=== PATIENT | female | born 1960 | race Caucasian/White ===

== ENCOUNTER 2023-04-17 07:24 | Observation (INO) | payer OTHER, SELFPAY ==
--- NOTE | 2023-04-02 08:02 | EKG12_ITS ---
Test Reason : PRE-OP Blood Pressure : / mmHG Vent. Rate : 076 BPM Atrial Rate : 076 BPM P-R Int : 140 ms QRS Dur : 074 ms QT Int : 340 ms P-R-T Axes : 028 -21 030 degrees QTc Int : 382 ms Normal sinus rhythm Low voltage QRS Borderline ECG Confirmed by HERSON CABEZAS, JOHANA ([id number]), editor index MIGUELANGEL BONILLA ([id number]) on 04/03/2023 10:45:21 AM Referred By: Gurjit Dominguez Confirmed By:JOHANA BAINS MD
--- NOTE | 2023-04-02 08:02 | RAD_ITS ---
STUDY: X-RAY CHEST REASON FOR EXAM: Female, 63 years old. PREOP TECHNIQUE: PA and lateral views of the chest. COMPARISON: None. FINDINGS: Mild degree of vascular congestion. There is no demonstrated pleural abnormality. Normal size heart. Normal mediastinum and eugenio. Normal visualized pulmonary arteries. There is atherosclerotic calcification of the aortic arch with tortuosity. There are diffuse degenerative changes of the visualized thoracic spine. Normal visualized ribs, clavicles, and shoulders. There is no demonstrated abnormality of the visualized soft tissue structures of the upper abdomen. RAD/Chest PA and Lateral IMPRESSION: Mild degree of vascular congestion. Electronically Signed: Donald Guerra MD at 13:12 [facility] ,
[2023-04-02 09:07] LABS: Absolute Lymphocyte Count 2.31 X10^3/uL (0.83-4.51); Absolute Neutrophil Count 1.8 X10^3/uL (2.0-7.7); Basophil# 0.03 X10^3/uL; Basophil% 0.6 % (0-1); Eosinophil# 0.19 X10^3/uL; Eosinophils% 3.9 % (0-5); Hematocrit 41.6 % (37-47); Hemoglobin 13.7 g/dL (12.0-15.0); Lymphocyte # 2.31 X10^3/ul (0.83-4.51); Lymphocyte % 47.8 % (19-41); Mean Corp Hgb Conc 32.9 g/dL (32-36); Mean Corpuscular Hgb 30.6 pg (27.0-32.0); Mean Corpuscular Volume 92.9 fL (81-99); Mean Platelet Vol. 10.2 fl (6.2-12.0); Monocyte# 0.52 X10^3/uL; Monocyte% 10.8 % (0-10); NRBC Flagged by Analyzer 0 % (0-5); Neutrophil # 1.76 X10^3/uL (2.7-7.7); Neutrophil % 36.5 % (47-70); Platelet Count 243 K/mm3 (150-450); RBC Distribution Width SD 44.3 fl (35.1-43.9); Red Blood Count 4.48 M/mm3 (4.2-5.4); White Blood Count 4.8 K/mm3 (4.4-11.0)
[2023-04-02 09:18] LABS: Partial Thromboplast Time 25.4 Seconds (24.1-36.2)
[2023-04-02 09:29] LABS: Anion Gap 3 (5-15); BUN 22 mg/dL (7-18); BUN/Creat Ratio 28.5 RATIO (10-20); Calcium,Total 9.4 mg/dL (8.5-10.1); Chloride 108 mmol/L (98-107); Creatinine, Serum 0.77 mg/dL (0.55-1.02); EST Glomerular Filtration Rate 80 mL/min (>60); Est Glom Filt Rate - Afr Amer 97 mL/min (>60); Glucose 101 mg/dL (74-106); Potassium 4.3 mmol/L (3.5-5.1); Sodium Level 138 mmol/L (136-145)
[2023-04-17] VITALS (13 sets, daily range): BP systolic 125–167; BP diastolic 52–84; PULSE 91–104; RESP 14–18; TEMP 36.1–36.6; O2SAT 92–99; BMI 40.0
--- OUTSIDE RECORDS SUMMARY | 2023-04-17 05:48 | XMS RPT_ITS | CCD ---
Author Name Unknown Address [address] [place] [address] Organization [facility] Care Team Providers Care Energy Technician Name Role Phone JAYLAN CORONA Admitting Unavailable CHURCH, YOLANDA PAC Consulting Unavailable CORONA, JAYLAN Primary Care Unavailable CORONA, JAYLAN Attending Unavailable PROVIDER, UNKNOWN Consulting Unavailable CHURCH, YOLANDA PAC Consulting Unavailable CORONA, JAYLAN Admitting Unavailable CORONA, JAYLAN Primary Care Unavailable CORONA, JAYLAN Attending Unavailable PROVIDER, UNKNOWN Consulting Unavailable CHURCH, YOLANDA PAC Consulting Unavailable CHURCH, YOLANDA PAC Attending Unavailable CHURCH, YOLANDA PAC Admitting Unavailable CHURCH, YOLANDA PAC Primary Care Unavailable PROVIDER, UNKNOWN Consulting Unavailable CHURCH, YOLANDA PAC Consulting Unavailable ROBINA PALMER DO Admitting Unavailable PALMERROBINA DO Primary Care Unavailable PALMERROBINA WOLF DO Attending Unavailable PROVIDER, UNKNOWN Consulting Unavailable CORONA, JAYLAN Admitting Unavailable CHURCH, YOLANDA PAC Consulting Unavailable CORONA, JAYLAN Primary Care Unavailable CORONA, JAYLAN Attending Unavailable PROVIDER, UNKNOWN Consulting Unavailable CJ, JAYLAN Admitting Unavailable CHURCH, YOLANDA PAC Consulting Unavailable CJ, JAYLAN Primary Care Unavailable CJ, JAYLAN Attending Unavailable PROVIDER, UNKNOWN Consulting Unavailable Problems Active Problems Problem Classification Problem Date Documented Da te Episodic/Chronic Osteoarthritis (1 source) Unilateral primary osteoarthritis, right hip; Translations: [Unilateral primary osteoarthritis, right hip] Onset: 09-12-2022 Chronic Past or Other Problems Problem Classification Problem Date Documented Da te Episodic/Chronic Other non-traumatic joint disorders (3 sources) Pain in right hip; Translations: [Pain in right hip] Onset: 09-12-2022 Episodic Results Test Name Value Interpretation Reference Range Facil ity Encounters Encounter Date Encounter Type Care Provider Facility Start: 12-20-2022 End: 12-20-2022 ambulatory YOLANDA PAC [facility] Start: 12-17-2022 End: 12-17-2022 ambulatory YOLANDA PAC [facility] Start: 10-11-2022 End: 10-11-2022 ambulatory JAYLAN CORONA [facility] Start: 09-12-2022 End: 09-12-2022 ambulatory JAYLAN CORONA [facility] Start: 08-14-2022 End: 08-14-2022 ambulatory JAYLAN CORONA [facility] Start: 06-03-2022 End: 06-03-2022 ambulatory YOLANDA CHURCH [facility] Payers Date Payer Category Payer Unknown [id number] [id number] 1960 Unknown [id number] [id number] [id number] 1960 Unknown [id number] 2.16.8 [id number] 1960 Unknown [id number] 2.16.8 [id number] 1960 Unknown [id number] 2.16.84 [id number] 1960 Unknown [id number] 2.16.84 [id number] Unknown [id number] Unknown [id number] Clinical Note 12-20-2022 Note Date & Type Note Facility 12-20-2022 Note [facility] CONSULTATION REPORT NAME ACCOUNT SEX AGE ADMIT DISCHARGE PT MED. RECORD# NUMBER DATE DATE TYPE [place], [id number] F 62 12/20/2022 12/20/2022 2 LIZY Rodriguez [id number] ROOM: DATE OF : 1960 DICTATING PHYSICIAN: Jaylan Corona HISTORY OF PRESENT ILLNESS: The patient was seen today on December 20, 2022 at the [facility] in [place], [place]. She had a right hip diagnostic injection with 100% relief. She states she is really doing good . She had her left hip replaced by Dr. Arsen Vargas. We explained to her that if this pain were to return quickly, which it does not appear that it is, then she would need a right hip replacement, but overall she is doing really quite well. She also had some bursitis in the past, and this was relieved with injection therapy as well. The patient takes Celebrex usually daily, and there are no ill effects, and her recent laboratory data through her [facility] practice doctor was told to me to be within normal limits. The patient does suffer from degenerative lumbar disk disease and rare radicular symptomatology, though she states she is having increasing shooting calf pain at times. This only occurs with excessive activity. REVIEW OF SYSTEMS: The remainder of review of systems, intake form, pain questionnaire, nursing assessment, and OARRS report were reviewed. PHYSICAL EXAMINATION: GENERAL APPEARANCE: Reveals a pleasant 62-year-old female who is alert x3. Her cranial nerves are intact, and she ambulates in the room in a mildly flexed position. VITAL SIGNS: She is 212 pounds and 66 inches. Pain level is a 5 out of 10. Temperature is 97.5, pulse 94, respirations 20, and blood pressure 150/80. Cervical range of motion is preserved. Her thyroid is not enlarged. HEART: Heart is regular. Peripheral pulses are maintained. LUNGS: Lungs are clear in all lung liz. ABDOMEN: Abdomen is not acute. EXTREMITIES: The patient exhibits some mild pain with lumbar extension, but only with extremes. Lumbar flexion is full. Straight leg raising is negative. Full hip range of motion is noted. The patient also has full knee range of motion as well. ASSESSMENT: 1. Degenerative lumbar disk disease. 2. Lumbosacral radiculitis/intermittent and rare. 3. Osteoarthritis/pain right hip/resolved with injection therapy. 4. Right hip bursitis/resolved with injection therapy. Page 1 of 2 LIZY STARR Circular Knitter Helper Report LIZY STARR : 1960 PLAN: The patient will continue with Celebrex as it has no ill effects and it seems to be quite effective. We will utilize injections intermittently. She may need an epidural injection if the radicular pain continues to progress. The patient agrees to the plan, and will followup in 6 months and sooner if needed. Dictated By: Jaylan Corona DO 12/20/2022 11:16 JOB #: [id number] Transcribed By: am 12/20/2022 12:00 Electronically signed by: E-SIGN: JAYLAN CORONA 12/20/22 13:28 Page 2 of 2 LIZY STARR Circular Knitter Helper Report [facility] Clinical Note 10-17-2022 Note Date & Type Note Facility 10-17-2022 Note [facility] CONSULTATION REPORT NAME ACCOUNT SEX AGE ADMIT DISCHARGE PT MED. RECORD# NUMBER DATE DATE TYPE [place], [id number] F 62 10/11/2022 10/11/2022 2 LIZY M [id number] ROOM: DATE OF : 1960 DICTATING PHYSICIAN: Jaylan Corona PROGRESS NOTE HISTORY OF PRESENT ILLNESS: The patient is seen today on October 11, 2022. The patient is status post right hip injection for diagnostic and therapeutic purposes. The patient states that this shot was on Friday, and by Friday it was amazing and there is no pain. She still has really not much pain in the right hip, and now complains of other pains including right buttock area, some mild radicular components to her pain pattern, and some lateral hip pain. The patient is quite active at home. She mows her lawn, and is trying to lose weight as her weight is over 200 pounds. She is 5 foot 2. Overall though, she is marked improved. The patient is due to see Dr. Arsen Vargas next month, and hopefully the pain relief will still continue. If note, she will need a right hip replacement. We discussed this in no uncertain terms. The patient is currently on no pain medications except Tylenol which does nothing for her overall pain pattern. REVIEW OF SYSTEMS: The remainder of review of systems, intake form, pain questionnaire, nursing assessment, and OARRS report were reviewed. PHYSICAL EXAMINATION: GENERAL APPEARANCE: Reveals a pleasant 62-year-old female who is alert x3. VITAL SIGNS: She is 5 foot 2 and 206 pounds. Cervical range of motion is diminished, but not painful. Her thyroid is not enlarged. Her gait is upright and steady. HEART: Heart is regular. Peripheral pulses are maintained. LUNGS: Lungs are clear in all lung liz. ABDOMEN: Soft and rotund. EXTREMITIES: Examination of the hip joints reveal full range of motion of the right hip. She has left hip range of motion, but the left hip is replaced. Range of motion is full. Straight leg raising is negative. She has full lumbar range of motion with pain only at extremes of extension and flexion. She does have a positive Celestino's test on the right, but not the left signifying some SI pain and some lateral right hip pain is noted, i.e. bursitis, but again it is mild. ASSESSMENT: 1. Degenerative lumbar disk disease/stable. 2. Lumbar radiculitis/rare. Page 1 of 2 LIZY STARR Circular Knitter Helper Report LIZY STARR : 1960 3. Status post total left hip replacement successful. 4. Osteoarthritis/pain right hip/markedly improved with hip injection. 5. Right sacroiliitis. 6. Morbid obesity. 7. Bursitis right hip. PLAN: The patient's right SI pain and bursitis are fairly mild. It may be amendable to simple Celebrex treatment. We will try Celebrex 200 mg every morning. We discussed risks and benefits. She will try this, and she will try to lose weight over the next few months. She will talk to Dr. Arsen Vargas, and if her pain is still not present in the right groin and hip region, then she probably will not need a hip replacement for a while, but eventually she will. The patient agrees to the plan, and will followup in 3 months and trial the Celebrex. Dictated By: Jaylan Corona DO 10/11/2022 09:22 JOB #: [id number] Transcribed By: am 10/11/2022 10:03 Electronically signed by: E-SIGN: JAYLAN CORONA 10/17/22 07:29 Page 2 of 2 LIZY STARR Circular Knitter Helper Report [facility] Clinical Note 08-15-2022 Note Date & Type Note Facility 08-15-2022 Note [facility] CONSULTATION REPORT NAME ACCOUNT SEX AGE ADMIT DISCHARGE PT MED. RECORD# NUMBER DATE DATE TYPE [place] [id number] F 62 08/14/2022 08/14/2022 2 LIZY Rodriguez [id number] ROOM: DATE OF : 1960 DICTATING PHYSICIAN: Jaylan Corona August 14, 2022 Arsen Vargas MD [address] [address] RE: Lizy Starr : [address] Arsen Vargas: It was a pleasure to evaluate Mrs. Strar at our [facility] in [place], [place] on August 14, 2022. As you are aware, the patient has several pain complaints, most prominent being low back and radicular pain posteriorly, but also complains of right groin pain. Certainly, her x-rays reveal osteoarthritis of the hip. She had a left hip replacement, which was successful. The patient is unsure if she wishes to move forward with any surgeries again, but we explained we need to have a definitive diagnosis of where the pain is coming from. It is likely they are from 2 locations. The patient utilizes Tylenol with some questionable efficacy. The pain is certainly interfering with activities of daily living. The patient's past medical history is positive for obesity and anxiety and probably hypertension. At our visit today, the blood pressure was high, and at yours it was high as well. The patient is a nonsmoker, nondrinker, and is . She has 2 boys with grandchildren. The remainder of review of systems, intake form, pain questionnaire, and nursing assessment were reviewed. PHYSICAL EXAMINATION: GENERAL APPEARANCE: Reveals a 62-year-old female Page 1 of 3 LIZY STARR Circular Knitter Helper Report LIZY STARR : 1960 who is alert x3 and pleasant. She ambulates in a flexed position slowly into the room. VITAL SIGNS: She is 5 foot 5 and 212 pounds. Blood pressure is 170/100, pulse 80, respirations 16, and saturation 96% on room air. Cervical range of motion is preserved. Her thyroid is not enlarged. HEART: Heart is regular. Peripheral pulses are maintained. LUNGS: Her lungs are clear in all lung liz. ABDOMEN: Abdomen is soft and rotund. EXTREMITIES: Examination of the spine reveals full range of motion of the cervical spine, and no myofascial pain of the cervical, thoracic, or lumbar area. The patient exhibits significant discomfort with any lumbar extension or side bending while lumbar flexion is full. Straight leg raising is negative. The patient exhibits right groin pain with right hip range of motion and no pain on the left with left hip range of motion. ASSESSMENT: 1. Degenerative lumbar disk disease. 2. Lumbar radiculitis right-sided. 3. Morbid obesity. 4. Osteoarthritis right hip. PLAN: We will do a diagnostic right hip injection to see if that pain disappears. If it does, we will see if any steroid helps this pain for any length of time. If it does not, she will need a hip replacement on the right as well. In terms of the radicular pain, we will see how she does after the diagnostic injection. She may need further workup with MRI and/or an epidural injection for diagnostic and therapeutic purposes. The patient will start with a diagnostic right hip injection under fluoroscopy. The patient agrees with the plan. Thank you for this consultation. Sincerely, Jaylan Corona DO Dictated By: Jaylan Corona DO 08/14/2022 10:14 JOB #: [id number] Transcribed By: am 08/14/2022 11:12 Electronically signed by: Page 2 of 3 LIZY STARR Circular Knitter Helper Report LIZY STARR : 1960 E-SIGN: JAYLAN CORONA 08/15/22 07:10 Page 3 of 3 LIZY STARR Circular Knitter Helper Report [facility] Summary Purpose Family History No Family History Records FoundNo Family History Records Found Advance Directives No Advanced Directives Records FoundNo Advanced Directives Records Found Additional Source Comments INFORMATION SOURCE (unrecogn ized section and content) DATE CREATED AUTHOR AUTHOR'S ORGANIZ ATION 03/12/2023 [facility] FOR RECORDS PERTAINING TO PATIENTS WHO ARE OR HAVE BEEN ENROLLED IN A CHEMICAL DEPENDENCY/SUBSTANCEABUSE PROGRAM, SOME INFORMATION MAY BE OMITTED. This clinical summary was aggregated from multiple sources. Caution should be exercised in using it in the provision of clinical care. This summary normalizes information from multiple sources, and as a consequence, information in this document may materially change the coding, format and clinical context of patient data. In addition, data may be omitted in some cases. CLINICAL DECISIONS SHOULD BE BASED ON THE PRIMARY CLINICAL RECORDS. [employer]. provides no warranty or guarantee of the accuracy or completeness of information in this document.
[2023-04-17] MEDS: Lactated Ringers 1,000 ML 15 ML IV ×3 (06:47→12:00)
--- NOTE | 2023-04-17 07:14 | OP.PCM_ITS ---
Problems Associated Problem List Diagnoses (1) Lumbar stenosis: Report of Operation Date of Procedure: 04/17/23 Description of Surgical Findings:: Preop diagnosis: 1. Lumbar stenosis, L4-5, L5-S1 with spondylosis 2. Lumbar degenerative disc disease L4-5, L5-S1 Postop diagnosis: 1. Lumbar stenosis, L4-5, L5-S1 with spondylosis 2. Lumbar degenerative disc disease L4-5, L5-S1 Procedures performed: 1. L4-5 posterior lumbar interbody fusion 2. L5-S1 posterior lumbar interbody fusion 3. Insertion of intervertebral biomechanical device x2 4. Structural allograft for spinal fusion 5. L4 bilateral laminectomies, foraminotomies, facetectomies, decompression of bilateral nerve roots 6. L5 bilateral laminectomies, foraminotomies, facetectomies, decompression of bilateral nerve roots 7. L4-5 posterolateral fusion 8. L5-S1 posterior lateral fusion 9. Pedicle screw fixation 10. Local autograft for spinal fusion. 11. Neuro monitoring bilateral upper and bilateral lower extremities Statement of medical necessity: The patient is a 63-year-old female with intractable back and leg pain. Image studies confirm the above diagnoses. They have failed conservative treatments and has opted for operative intervention understanding the risk to include but not limited to infection, bleeding, damage to nerves arteries and veins, possibility of spinal fluid leak, nonunion, hardware failure, continued pain, need for further surgery, deep vein thrombosis, pulmonary embolism, heart attack, risk of stroke or . Description of the procedure: The patient was identified in the preoperative holding area. There they received preoperative IV antibiotics and was then transferred to the operative suite. Once in the operative suite after general endotracheal anesthesia was established, the patient was positioned prone on the Kristian operating table. All bony prominences were padded accordingly. The lumbar spine was prepped and draped in a standard fashion. Bear hugger's were not turned on until the drapes were placed and sealed with Ioban. A midline incision was made and taken down to the fascia. The fascia was divided and subperiosteal dissection was taken down to the level of the transverse processes and sacral ala of L4, L5, and S1 bilaterally. Deep retractors were placed. A bone scalpel was used to make cuts in the lamina and then a series of rongeurs and Kerrisons were used removing the spinous process and lamina of L4 and L5. Then facetectomies of greater than 50% were performed at L4-5 and L5-S1 bilaterally as well as foraminotomies decompressing the bilateral nerve roots. Given the severity of the stenosis I needed to perform wide bilateral laminectomies and near complete facetectomies in order to decompress the neural elements. Disc created instability necessitating the fusion. I then proceeded with interbody fusion. The nerve roots and dura were identified and retracted medially. A knife was utilized to perform an annulotomy at L4-5 on the right. Endplate elevators, curettes, and pituitaries were utilized to remove disc material. Endplates were prepared with a rasp. An appropriate sized intervertebral peek cage device measuring 10 mm was packed with structural allograft and impacted into position completing the posterior lumbar interbody fusion at the L4-5 level. The same steps were repeated at the L5-S1 level. An intervertebral peek cage device measuring 7 mm was packed with morselized cance llous allograft and impacted into position completing the posterior lumbar interbody fusion at the L5-S1 level. I then proceeded with pedicle screw fixation. Starting points were found at the junction of the superior articular process and transverse processes and sacral ala of L4, L5, and S1 bilaterally. A power bur was used for the starting points. Pedicle probes were placed bilaterally and then 6.5 x 50 mm screws were placed bilaterally at L4 and L5 and 6.5 x 45 mm screws were placed bilaterally at S1. The screws were tested with intraoperative neurophysiologic monitoring and tested within normal limits. Connector rods were applied and secured with set screws. I then proceeded with the posterolateral fusion. This was accomplished by decorticating the transverse processes and sacral ala bilaterally at L4, L5, and S1. This decorticated bone was then bridged with local autograft from the decompression as well as morselized cancellous allograft completing the posterolateral fusion of the L4-5 and L5-S1 levels. The incision was thoroughly irrigated. Tisseel was placed over the dura as a hemostatic agent. The fascia was closed with #1 Vicryl, subcutaneous with 2-0 Vicryl and skin with 2-0 nylon. A sterile dressing was applied with 4 x 4's ABD and tape. Sponge instrument and needle counts were correct at the end of the case. Neurophysiologic monitoring was maintained at baseline throughout the duration of the case. The patient was extubated and taken to the PACU without incident Surgeon: Dominguez,Gurjit Type of Anesthesia: General Estimated Blood Loss (mL): 700 cc Fluids Replaced: 2600 cc Grafts/Implants Used: Unified spine Complications None Admit VTE Documentation VTE Present on Admission: No
--- NOTE | 2023-04-17 07:16 | PCM.PN.ORT ---
Subjective Subjective Seen and examined postop. Resting comfortably. Pain controlled. No complaints Objective Data Objective Data Vital Signs: Vital Signs Temp Pulse Resp BP Pulse Ox O2 Del Method 97.0 F L 91 16 167/75 H 95 Room Air 04/17/23 06:31 04/17/23 06:31 04/17/23 06:31 04/17/23 06:31 04/17/23 06:31 04/17/23 06:31 Oxygen Delivery Method Room Air Weight: 212 lb 1.355 oz Body Mass Index (BMI) 40.0 Lab / Micro Data 04/02/23 08:06 04/02/23 08:06 Physical Exam Const alert, oriented x3 and no apparent distress General Appearance: cooperative, comfortable and well kempt HEENT normocephalic and head/scalp atraumatic Eyes EOMs intact bilaterally and conjunctivae normal Neck full ROM General: normal visual inspection Chest inspection of chest normal and palpation of chest normal Resp normal respiratory effort and normal air movement Cardio regular rate, regular rhythm and peripheral pulses 2+ throughout GI soft to palpation, non-tender and non-distended Back/Spine Back/Spine Narrative: Dressing clean dry and intact Cervical Spine: cervical ROM normal Thoracic Spine / Upper Back: normal to inspection Lumbar Spine / Lower Back: normal to inspection Extremity normal to inspection, full ROM, normal capillary refill, no clubbing, cyanosis or edema and no calf tenderness Skin no rashes or lesions noted General Skin Exam: no breakdown Neuro oriented x3, CN's II-XII intact bilaterally, moves all extremities, no focal motor deficits, no sensory deficits noted and deep tendon reflexes 2+ bilaterally Motor Exam: strength 5/5 throughout and muscle tone normal throughout Assessment & Plan Assessment/Plan (1) Lumbar stenosis: PLAN: Plan Okay to admit See orders Discharge planning, likely home tomorrow
--- NOTE | 2023-04-17 07:18 | DS.PCM_ITS ---
Providers Date of Admission: 04/17/23 Primary Care Physician: DALLAS Mcconnell Reason For Visit: LUMBAR 4 - LUMBAR 5, LUMBAR 5 - SAC Diagnosis Discharge Diagnosis (1) Lumbar stenosis: Status: Acute Code(s): M48.061 - Spinal stenosis, lumbar region without neurogenic claudication Plan Okay to admit See orders Discharge planning, likely home tomorrow Medications at Discharge Home Medications lisinopril 10 mg tablet 10 mg PO DAILY 03/27/23 hydrocodone-acetaminophen 5-325mg 5mg-325mg 1 tab PO Q4H PRN PRN Pain 7 days #90 tabs 04/17/23 Hospital Course Operations - (L4-5, L5-S1 posterior lumbar interbody fusion, decompression, posterior spinal fusion with instrumentation, use of allograft) Summary of Care Provided Minutes Spent on Discharge: 15 Hospital Course: The patient is a 63-year-old female who underwent L4-S1 fusion on 04/17/2023. She was subsequently admitted. The hospitalist was consulted for medical manag ement. She progressed well. Her pain was controlled and she was mobilizing well. No significant medical issues were reported. She was subsequently discharged home on 04/18/2023 to follow-up with Dr. Dominguez in 3 weeks Physical Exam Const alert, oriented x3 and no apparent distress General Appearance: cooperative, comfortable and well kempt Neck full ROM General: normal visual inspection Chest inspection of chest normal and palpation of chest normal Resp normal respiratory effort and normal air movement Effort and Inspection: able to speak in complete sentences Cardio regular rate and peripheral pulses 2+ throughout GI soft to palpation, non-tender and non-distended Back/Spine Back/Spine Narrative: Dressing clean dry and intact. Incision well-approximated with interrupted sutures in place. No tenderness erythema drainage or fluctuance Cervical Spine: cervical ROM normal Thoracic Spine / Upper Back: normal to inspection Lumbar Spine / Lower Back: normal to inspection Extremity normal to inspection, full ROM, normal capillary refill, no clubbing, cyanosis or edema and no calf tenderness Skin no rashes or lesions noted General Skin Exam: no breakdown Neuro oriented x3, CN's II-XII intact bilaterally, moves all extremities, no focal motor deficits, no sensory deficits noted and deep tendon reflexes 2+ bilaterally Motor Exam: strength 5/5 throughout and muscle tone normal throughout Weight / BMI Weight Weight: 212 lb 1.355 oz Body Mass Index (BMI) 40.0 ABG / Lab / Microbiology Data 04/02/23 08:06 04/02/23 08:06 D/C Instructions Discharge Diet: No restrictions Additional Activity Instructions: No repetitive bending twisting or lifting greater than 5 pounds. Wear back brace at all times. Okay to remove brace to sleep Call your doctor if your incision/area has: Continuous Slow Oozing, Sudden Increased Bleeding, Increased Pain/ Swelling, Increased Redness, Foul Smelling Discharge and Swelling at the incision site Call your doctor if you observe: Fever of 101 or Higher, Coldness, Increased Pain, Numbness or Tingling, Change in Color, Inability to urinate, Inability to have a bowel movement, Using more than 1 pad per hour, Shortness of breath, Dizziness, Fainting spells, Swelling in the ankles, Chest pain, Prolonged hiccupping, Increased palpitations (irregular heartbeat), Calf discomfort and Uncontrolled pain Cleanse incision/area with: Do not get Incision Wet and Keep Dressing Clean & Dry Additional Dressing/Incision Instructions: Change dressing daily with iodine gauze and tape. Use waterproof dressing to shower Additional Instructions: 1. During your procedure, you received sedation through your IV. Please follow these instructions for the next 24 hours: Do not drive a motor vehicle, do not drink any alcoholic beverages, and do not sign any legal documents or make personal or business decisions. A responsible adult should stay with you at least 6 hours after the procedure. 2. Keep your surgical site/incision clean and the dressing dry and intact. You may use an ice pack at the surgical site to reduce any swelling or discomfort. 3. Monitor the incision site for any signs or symptoms of infection. Watch for redness, excessive swelling or drainage, or continued pain at the incision site after 3 days. Contact your physician immediately for a fever, chills or a temperature of 101.5? F or greater. 4. Take your medication exactly as prescribed by your physician. Do not attempt to wean yourself off any of your medications even though your pain is improving. This process needs to be carefully monitored by your doctor. Take any antibiotics prescribed exactly as directed and until they are gone. 5. Avoid stretching, bending, pulling, twisting or any sudden movements. Do not bend or twist at the waist. Wear back brace at all times 6. No lifting greater than 5 pounds. 7. Do not operate a motor vehicle, equipment or a power tool while taking pain medication 8. Do not have any manipulation done by a chiropractor or any other physician without first consulting with the surgeon 9. Please contact our office if you are even scheduled for a CT scan or an MRI. 10. Please call us if you have any questions, problems or concerns. Please Follow Up With: Gurjit Dominguez DO When: 3 weeks Meaningful Use Info Meaningful Use Diagnoses (Choose all that apply): None applicable Discharge Plan Admission Admit Date/Time: 04/17/23 07:24 Attending Provider: Gurjit Dominguez Primary Care Provider: Alicia Washington Consulting Providers: Slava Alfaro Instructions Additional Instructions / Restrictions: 1. During your procedure, you received sedation through your IV. Please follow these instructions for the next 24 hours: Do not drive a motor vehicle, do not drink any alcoholic beverages, and do not sign any legal documents or make personal or business decisions. A responsible adult should stay with you at least 6 hours after the procedure. 2. Keep your surgical site/incision clean and the dressing dry and intact. You may use an ice pack at the surgical site to reduce any swelling or discomfort. 3. Monitor the incision site for any signs or symptoms of infection. Watch for redness, excessive swelling or drainage, or continued pain at the incision site after 3 days. Contact your physician immediately for a fever, chills or a temperature of 101.5? F or greater. 4. Take your medication exactly as prescribed by your physician. Do not attempt to wean yourself off any of your medications even though your pain is improving. This process needs to be carefully monitored by your doctor. Take any antibiotics prescribed exactly as directed and until they are gone. 5. Avoid stretching, bending, pulling, twisting or any sudden movements. Do not bend or twist at the waist. Wear back brace at all times 6. No lifting greater than 5 pounds. 7. Do not operate a motor vehicle, equipment or a power tool while taking pain medication 8. Do not have any manipulation done by a chiropractor or any other physician without first consulting with the surgeon 9. Please contact our office if you are even scheduled for a CT scan or an MRI. 10. Please call us if you have any questions, problems or concerns. Discharge Orders/Prescriptions Prescriptions: New hydrocodone-acetaminophen 5-325 mg tablet 1 tab PO Q4H PRN PRN (Reason: Pain) 7 Days Qty: 90 0RF Continued lisinopril 10 mg tablet 10 mg PO DAILY Patient Comments: TAKE 1 TABLET BY MOUTH ONCE DAILY Discontinued acetaminophen [Acetaminophen Extra Strength] 500 mg tablet 1,000 mg PO TID Referrals / Follow Up: Gurjit Dominguez DO [Med Staff - Active Staff] - Disposition Disposition (needs filled in before D/C Order can be placed): Home, Self Care
[2023-04-17] MEDS: Cefazolin 2 GM in 0.9% Normal Saline (100mL Bag) 100 ML IV (07:35)
[2023-04-17] MEDS: Cefazolin 1 GM/50 ML BAG IV ×3 (07:35→23:33)
--- NOTE | 2023-04-17 07:55 | RAD_ITS ---
PROCEDURE: L4-S1 POSTERIOR FUSION, DECOMPRESSION DATE OF EXAMINATION: April 17, 2023 INDICATION: Female, 63 years old. L4-S1 POSTERIOR FUSION, DECOMPRESSION DOCUMENTATION PURPOSES 5 FLUORO IMAGES,145.7 FLUORO SEC, 158.82mGy Other Info CT PHYSICIAN: Gurjit Dominguez DO FLUOROSCOPY TIME (if supplied): (2.36) minutes/seconds RADIATION DOSAGE (If Supplied By Facility): CTDIvol = ( ) mGy, DLP = ( ) mGycm CONSENT: The risks, benefits and alternatives to the procedure were explained to the patient, and the patient agreed to the procedure and signed the consent. STERILE BARRIER TECHNIQUE: The following sterile barrier precautions were used during the procedure: hand hygiene; use of 2% chlorhexidine aseptic; use of a cap, mask, sterile gown, sterile gloves, sterile full body drape, and a large sterile sheet. PROCEDURE/TECHNIQUE: (All elements of maximal sterile barrier technique followed, including US elements as applicable) The risks, benefits, and alternatives to the procedure were explained to patient, and the patient agreed to the procedure and signed a consent form for the procedure. A timeout was performed to confirm the patient''s identity, the type of procedure, to be performed and the site of entry. Radiologic findings: 6 intraoperative fluoroscopic views of the lumbar spine were provided for interpretation. The images show surgical instrumentation at L4, L5, and S1 with a posterior decompressive defect and bilateral pedicle screws and fusion rods and interbody grafts. RAD/Lumbar Spine 2 or 3 Views IMPRESSION: 1. Status Post L4-S1 Posterior Fusion, Decompression. Refer To The Surgeons Operative Note For Findings And Recommendations. Electronically Signed: Chris Romero MD at 16:05 EST Reading Location ID and State: [facility] / [place] , Service support ,
[2023-04-17] MEDS: THROMBIN (RECOMBINANT) 20,000 UNIT VIAL 20000 UNIT TOPICAL (08:18)
[2023-04-17] MEDS: Heparin 10,000 UNITS/10 ML Vial 10000 UNITS (08:18)
[2023-04-17] MEDS: Bupivacaine 0.25% 30 ML Vial (12:14)
[2023-04-17] MEDS: Lactated Ringers 1,000 ML 100 ML IV (15:13)
[2023-04-17] MEDS: Morphine 4 MG/ML Syringe IV (16:29)
[2023-04-17] MEDS: Acetaminophen 500 MG Tablet 1000 MG PO ×2 (16:29→22:04)
[2023-04-17] MEDS: oxyCODONE 5 MG Tablet PO (20:02)
--- NOTE | 2023-04-17 20:36 | PCM.PN.HOSP ---
Reason for Visit Reason for Visit: Diagnoses Spinal stenosis, lumbar region without neurogenic claudication (04/17/23) Encounter for other preprocedural examination (04/17/23) Subjective Subjective 63 female with history of hypertension who presented to [facility] 04/17/2023 for a lumbar fusion with Dr. Dominguez. Hospitalist consulted for medical management. Patient seen at bedside, reports she is having some abdominal cramping postsurgery but no overt pain and no nausea or vomiting, overall feels pain medicines are helping and has no other complaints or concerns. Objective Data Objective Data Vital Signs: Vital Signs Temp Pulse Resp BP Pulse Ox O2 Del Method O2 Flow Rate 97.6 F L 97 18 140/70 H 99 Room Air 2 04/17/23 17:59 04/17/23 17:59 04/17/23 17:59 04/17/23 17:59 04/17/23 17:59 04/17/23 17:59 04/17/23 15:40 Oxygen Flow Rate (L/min) 2 Oxygen Delivery Method Room Air Weight: 96.2 kg Body Mass Index (BMI) 40.0 Intake & Output: Intake and Output for Last 24 Hours 04/15/23 04/16/23 04/17/23 23:59 23:59 23:59 Intake Total 2330 / 2330 Output Total 1050 / 1050 Balance 1280 / 1280 Lab / Micro Data 04/02/23 08:06 04/02/23 08:06 Radiography Diagnostic Testing: Radiology Impression Lumbar Spine X-Ray 04/17/23 07:55 IMPRESSION: 1. Status Post L4-S1 Posterior Fusion, Decompression. Refer To The Surgeons Operative Note For Findings And Recommendations. Electronically Signed: Chris Romero MD at 16:05 EST Reading Location ID and State: [facility] / [place] , Service support , Physical Exam Narrative General: Alert, oriented, no apparent distress HEENT: Atraumatic, normocephalic Eyes: Anicteric, normal conjunctiva, extraocular movements grossly intact Neck: Supple Respiratory: Clear to auscultation bilaterally, normal respiratory effort Cardiovascular: Regular rate and rhythm GI: Soft, nontender, nondistended, did have somewhat hypoactive bowel sounds Extremities: No edema Musculoskeletal: Moving all extremities Neuro: No overt focal neurological deficits Skin: No rashes appreciated Psych: Cooperative Assessment & Plan Assessment/Plan (1) Lumbar stenosis: (2) Hypertension: PLAN: Plan # Lumbar stenosis -Status post lumbar fusion 04/17/[address] Dominguez -Management per primary # Hypertension -Okay to continue lisinopril #DVT ppx: Timing of the discretion of surgeon Ricarda Quezada MD Time spent in the patient's overall evaluation,decision-making process, review of diagnostic data, adjustment of management, discussion with other providers, nursing nursing and ancillary staff involved in patient's care documentation, 25 minutes Charges/Coding Visit Charges Inpatient E&M: 55882 [facility] L1
[2023-04-18 03:15] VITALS: BP 143/58; PULSE 89; RESP 16; TEMP 36.5; O2SAT 96
[2023-04-18] MEDS: oxyCODONE 5 MG Tablet PO (03:23)
[2023-04-18] MEDS: Acetaminophen 500 MG Tablet 1000 MG PO ×2 (06:06→13:05)
[2023-04-18] MEDS: Lisinopril 10 MG Tablet PO (08:14)
[2023-04-18 09:15] VITALS: BP 113/53; PULSE 82; RESP 16; TEMP 36.2; O2SAT 94
--- NOTE | 2023-04-18 09:51 | CASEMGMT ---
BARBARA VARMA Assessment Face to Face with patient for initial transition planning/care coordination assessment. BARBARA VARMA introduced self and role at [facility], pt voices understanding. Pt is A&Ox4 and is resting comfortably in chair and is calm. Care providers, pharmacy, and demographics verified. Admitting dx: Spinal stenosis, lumbar region without neurogenic claudication LACE Strata: 1 PCP: Felix Specialists: Denies Preferred Pharmacy: [facility] Insurance: [employer] Prescription Benefit: Yes LNOK: Addi Starr (H), Leora Lebron (PURVI) Living Arrangements: Pt states living in a single story home with her . Pt states everything is one level and there are no steps to enter the home. ADLs/IADLs: Pt states independent with ADLs and IADLs. Pt states that when she returns she will have the help of her PURVI and . Transportation: Pt drives and pt drives. DME: Pt states she has a WW and cane at home. Pt states she normally does not use the walker but has been using it the past month to help with her back. Pt states she plans to use this for ambulation once she gets home. Denies all other DME use or needs. HHC/SNF: Denies history or needs. Plan: Pt plan is to DC home today via her . Pt states that she feels safe and comfortable being DC home today with no needs. Denies wanting HHC or outpt therapy. Piedad Vargas RN, CM
--- NOTE | 2023-04-18 11:20 | PHA.DC_ITS ---
Pharmacy [facility] Service has performed discharge medication reconciliation and counseling for this patient. The patient's discharge medication list was reviewed for discrepancies and discrepancies were resolved. The patient was counseled on the following discharge medications and changes in medications for homegoing were reviewed. The Reason for Use, instructions for use, and potential side effects were reviewed for all new medications. The patient's questions regarding all of their medications were answered. 1. Hydrocodone/acetaminophen 5/325, 1 tab Q4H PRN pain The patient was able to verbally demonstrate an understanding of their discharge medications. Medications at Discharge Home Medications lisinopril 10 mg tablet 10 mg PO DAILY 03/27/23 hydrocodone-acetaminophen 5-325mg 5mg-325mg 1 tab PO Q4H PRN PRN Pain 7 days #90 tabs 04/17/23
[2023-04-18 13:30] VITALS: BP 110/60; PULSE 76; RESP 16; TEMP 36.6; O2SAT 96
== END 2023-04-18 14:00 | disposition home or self-care (01) ==
LOC: SDC 13:32 → MS3 13:32
PROVIDERS: Admitting Provider Orthopaedic Surgery; Referring Provider Orthopaedic Surgery; Visit Provider Orthopaedic Surgery
PROC: 0SG10AJ Fusion of 2 or more Lumbar Vertebral Joints with Interbody Fusion Device, Posterior Approach, Anterior Column, Open Approach (ICD-10-PCS; CPT 22630; principal; 2023-04-17 07:00)
DX: M48.061 Spinal stenosis, lumbar region without neurogenic claudication (principal); M46.96 Unspecified inflammatory spondylopathy, lumbar region; E66.01 Morbid (severe) obesity due to excess calories; Z68.41 Body mass index [BMI] 40.0-44.9, adult; M47.26 Other spondylosis with radiculopathy, lumbar region; M51.36 Other intervertebral disc degeneration, lumbar region; I10 Essential (primary) hypertension; Z79.899 Other long term (current) drug therapy; R06.02 Shortness of breath; R25.2 Cramp and spasm
CPT/HCPCS: 22633; 22634; 63052; 63053; 22853 ×2; 20930; 20936; 22842; 00670; 36415; 71046; 72100; 76000; 80048; 85025; 85610; 85730; 93005; 94668; 96361; 96365; 96366; 96375; 97162; 99221; C1713; J7120; G0378; J2405

== ENCOUNTER 2023-04-28 18:34 | Emergency (ER) | payer OTHER, SELFPAY ==
[2023-04-28 18:38] VITALS: BP 156/47; PULSE 116; RESP 18; TEMP 37.3; O2SAT 95
[2023-04-28 20:39] VITALS: BP 123/53; PULSE 64; RESP 12; O2SAT 99
--- OUTSIDE RECORDS SUMMARY | 2023-04-28 20:48 | XMS RPT_ITS | CCD ---
Author Name Unknown Address [address] [facility] [address] [place] [address] Organization [facility] Care Team Providers Care Escort Car Driver Name Role Phone CJADRIAN Admitting Unavailable CHURCH, YOLANDA PAC Consulting Unavailable CHRISTIAN, ADRIAN Primary Care Unavailable CHRISTIAN, ADRIAN Attending Unavailable PROVIDER, UNKNOWN Consulting Unavailable CHURCH, YOLANDA PAC Consulting Unavailable CHRISTIAN, ADRIAN Admitting Unavailable CHRISTIAN, ADRIAN Primary Care Unavailable CHRISTIAN, ADRIAN Attending Unavailable PROVIDER, UNKNOWN Consulting Unavailable CHURCH, YOLANDA PAC Consulting Unavailable CHURCH, YOLANDA PAC Attending Unavailable CHURCH, YOLANDA PAC Admitting Unavailable CHURCH, YOLANDA PAC Primary Care Unavailable PROVIDER, UNKNOWN Consulting Unavailable HCURCH, YOLANDA PAC Consulting Unavailable ROBINA PALMER DO Admitting Unavailable PALMER, ROBINA DO Primary Care Unavailable PALMER, ROBINA DO Attending Unavailable PROVIDER, UNKNOWN Consulting Unavailable CHRISTIAN, ADRIAN Admitting Unavailable CHURCH, YOLANDA PAC Consulting Unavailable CHRISTIAN, ADRIAN Primary Care Unavailable CHRISTIAN, ADRIAN Attending Unavailable PROVIDER, UNKNOWN Consulting Unavailable CHRISTIAN, ADRIAN Admitting Unavailable CHURCH, YOLANDA PAC Consulting Unavailable CHRISTIAN, ADRIAN Primary Care Unavailable CHRISTIAN, ADRIAN Attending Unavailable PROVIDER, UNKNOWN Consulting Unavailable Felix POOLE, Yolanda J Unavailable [phone] Physical Therapy Provider Unavailable Rola Vargas MD, Dr. Leger ([facility] [facility]) A Unavail able Georgina Gutiérrez MD Unavailable Obi NOWAK, [place] Unavailable Kaitlin Carter LPN Unavailable Unavailable Yue Davis PA-C Unavailable [phone] Dane GARDNER, Loreta Unavailable Unavailable Royal NOWAK, [place] Unavailable Unavailable Yue Bates RN Unavailable Unavaila dominic Hawk MA, Peggy Unavailable Unavailable Abiola NOWAK, Aida Unavailable Unavailable Nickie JIMENEZ, Trinity Y Unavailable Unavailable Corey ASSISTANT CROSS COUNTRY COACH, Margarita Unavailable Unavailable Pedro POOLE, Kiah Berrios Unavailable [phone] Froilan ASSISTANT CROSS COUNTRY COACH, Leora Heard Unavailable Unavailab alberta Acosta MA, [place] Unavailable Unavailable Vess ASSISTANT CROSS COUNTRY COACH, Maggi L Unavailable Unavailable Hong ASSISTANT CROSS COUNTRY COACH, Marry Unavailable Unavailabl e Aissatou ASSISTANT CROSS COUNTRY COACH, Nikki N Unavailable Unavaila ble Unavailable Unavailable Medications Current Medications Medication Drug Class(es) Dates Sig (Normalized) Sig (Original) lisinopril 20 mg oral tablet (4 sources) Angiotensin Converting Enzyme Inhibitor Start: 04-04-2023 lisinopriL 20 mg tablet ; 1 (one) tablet daily for 0 days Quantity: 30 {Tablet} Refills: 0 Ordered: 04-Apr-2023 VIRGILIO Church Start: 04-Apr-2023 Completed/Discontinued Medications Medication Drug Class(es) Dates Sig (Normalized) Sig (Original) amoxicillin 500 mg oral capsule (4 sources) Penicillin-class Antibacterial Start: 04-08-2015 End: 04-18-2015 take 1 capsule by mouth three times daily AMOXICILLIN, 500MG (Oral Capsule) ; 1 (one) Capsule three times daily for 10 days Quantity: 30 {Capsule} Refills: 0 Ordered: 08-Apr-2015 MD Georgina Gutiérrez Start: 08-Apr-2015 End: 18-Apr-2015 Status: Inactive amoxicillin 875 mg / clavulanate 125 mg oral tablet (8 sources) Penicillin-class Antibacterial Start: 03-02-2021 End: 03-12-2021 take 1 tablet by mouth twice daily Amoxicillin-Pot Clavulanate 875-125 MG Oral Tablet ; 1 (one) Tablet two times daily for 10 days Quantity: 20 {Tablet} Refills: 0 Ordered: 02-Mar-2021 VIRGILIO Church Start: 02-Mar-2021 End: 12-Mar-2021 Status: Inactive Problems Active Problems Problem Classification Problem Date Documented Date Episodic/Chronic Acute bronchitis (4 sources) Acute bronchitis; Translations: [Acute bronchitis, unspecified] 06-04-2017 Episodic Disorders of lipid metabolism (20 sources) Hyperlipidemia; Translations: [Hyperlipidemia, unspecified] 03-10-2023 Chronic Essential hypertension (12 sources) Hypertensive disorder; Translations: [Essential (primary) hypertension] 03-14-2023 Chronic Genitourinary symptoms and ill-defined conditions (8 sources) Urinary symptoms ; Translations: [Unspecified symptoms and signs involving the genitourinary system] 11-23-2021 Episodic Osteoarthritis (1 source) Unilateral primary osteoarthritis, right hip; Translations: [Unilateral primary osteoarthritis, right hip] Onset: 09-12-2022 Chronic Other circulatory disease (8 sources) Carotid bruit; Translations: [Other specified symptoms and signs involving the circulatory and respiratory systems] 03-10-2023 Episodic Other lower respiratory disease (4 sources) Cough; Translations: [Cough] 03-29-2015 Episodic Other non-traumatic joint disorders (12 sources) Hip pain; Translations: [Pain in left hip] 05-16-2016 Episodic Other nutritional; endocrine; and metabolic disorders (8 sources) Body mass index 30+ - obesity; Translations: [Body mass index (BMI) 37.0-37.9, adult] 03-10-2023 Chronic Other screening for suspected conditions (not mental disorders or infectious disease) (20 sources) Patient encounter status; Translations: [Encounter for screening for malignant neoplasm of colon] 11-22-2015 Episodic Otitis media and related conditions (16 sources) Otitis media of right ear; Translations: [Otitis media, unspecified, right ear] 11-23-2021 Episodic Residual codes; unclassified (8 sources) Colon cancer screening declined; Translations: [Procedure and treatment not carried out because of patient's decision for unspecified reasons] 03-10-2023 Episodic Residual codes; unclassified (8 sources) Mammogram declined; Translations: [Procedure and treatment not carried out because of patient's decision for unspecified reasons] 11-26-2021 Episodic Spondylosis; intervertebral disc disorders; other back problems (20 sources) Low back pain; Translations: [Lumbago] 03-10-2023 Episodic Unclassified (4 sources) deliveries 11-20-2022 Past or Other Problems Problem Classification Problem Date Documented Date Episodic/Chronic Other non-traumatic joint disorders (3 sources) Pain in right hip; Translations: [Pain in right hip] Onset: 09-12-2022 Episodic Unclassified (4 sources) Preoperative Clearance - Surgical procedure(s) planned: other (Lumbar 4 Lumbar 5, Lumbar 5-sacral 1 posterior lumbar interbody fusion, decompression, posterior spinal fusion with instrumentation, use of allograft.). Date of procedure: (to be determined) Surgeon: (Dr Palmer) and Location of procedure: ([facility]) There have been no problems with general anesthesia or blood/blood products. Prosthetics include eye glasses. Note for Pre-operative clearance : Patient had screening labs completed in November.She reports that she is feeling well at this time. 03-10-2023 Unclassified (4 sources) Well adult female - The patient feels well with no complaints, has good energy level and is sleeping well. The first day of the last menstrual period was : (no longer having). The patient has a balanced diet. The patient sleeps 7 hours per night. Note for Well adult female : Patient is fasting for labs today.She declines a mammogram, but would like a breast exam instead.Due for colon cancer screening 11-20-2022 Unclassified (4 sources) Back pain - The onset of the back pain has been acute and has been occurring in an intermittent pattern for 2 months. The course has been increasing (increasing in severity and frequency). The pain is characterized as a dull ache (Some times more sharp). The pain is located in the lower back and radiates to the lateral aspect of right leg and right thigh. The pain is precipitated by heavy weight lifting (Patient and her were moving and she was often lifting heavy things when the pain first started). The symptoms are aggravated by exertion and are relieved by rest and lying down. There has been no associated back stiffness, bladder dysfunction, dysuria, fever, flank pain, hip pain, incontinence of stool, incontinence of urine, leg weakness or paresthesias in leg. Note for Back pain : Patient has been seeing chiropractor without significant relief of pain. 04-11-2022 Unclassified (4 sources) Well adult female - The patient feels well with no complaints, has good energy level and is sleeping poorly (has trouble falling asleep). The patient has a balanced diet and takes no supplemental vitamins & iron. The patient exercises none (tries to stay active at home and at work). The patient sleeps 6 (6-7 hours a night) hours per night. Note for Well adult female : Last Pap 11/25/2018 Normal-Neg HPV. No previous mammogram. Patient declines mammogram today. 10/23/2017 CRC stool cards negative. Patient declines colon cancer screening today.Needs form completed for Workplace ([employer]).Has labs to be reviewed today. 11-26-2021 Unclassified (4 sources) Cold Symptoms - Symptoms include ear pain (both ears. Right ear worse), ear fullness, sore throat, scratchy throat, hoarseness, dry cough (primarily at night when she is laying down) and general malaise (fatigue, no body aches), but do not include sneezing, nasal congestion, runny nose, non-purulent sputum, purulent discharge, productive cough, wheezing, fever, chills, headache or facial pain. The onset was gradual 1 week(s) ago. The symptoms occur constantly. The patient describes this as moderate in severity and worsening. Current treatment includes non-prescription cold medication. Risk factors do not include child in daycare or smoking. The patient has not been exposed to an individual with a cough, an individual with an upper respiratory infection, an individual with similar symptoms, an individual with strep or secondhand smoke. Patient denies history of seasonal allergies, recurrent sinusitis, recurrent strep pharyngitis, asthma, tonsillectomy or recurrent ear infections. 03-02-2021 Unclassified (4 sources) Concern - Patient is here today with a concern of possible vaginal infection or UTI.. Been having symptoms for the past 6 days and symptoms remain the same. When she urinates will feel pressure on her vaginal area. Does have some urinary urgency and urinary frequency. Denies having burning with urination or having abdominal/back/flank pain. No fever or chills. Does have some vaginal itchiness when wiping herself. No vaginal foul odor or discharge. Denies any history of recurrent yeast infections or UTIs.Been increasing her fluid intake and drinking cranberry juice. 12-25-2020 Unclassified (4 sources) Well adult female - The patient feels well with no complaints (does have a form today for work), has good energy level and is sleeping well. The patient has a balanced diet. The patient does not exercise. The patient sleeps 7 (6.5-7) hours per night. 11-24-2019 Unclassified (4 sources) Well Adult, female - The patient feels well with no complaints, has good energy level and is sleeping well. The patient is not using any method of contraception at this time. The patient has a balanced diet and takes supplemental vitamins. The patient does not exercise. The patient sleeps 6 hours per night. 11-25-2018 Unclassified (4 sources) Well Adult, female - The patient feels well with no complaints, has good energy level and is sleeping well. The first day of the last menstrual period was : (2008). The patient has a balanced diet and takes supplemental vitamins. The patient exercises weekly. The patient sleeps 6 hours per night. Note for Well Adult, female : form completion for [employer] 11-04-2017 Unclassified (4 sources) Cold Symptoms - Symptoms include nasal congestion (initially), purulent discharge (post nasal), ear pain, ear fullness, sore throat (initially), dry cough (s.o.b.), productive cough (occasionally), fever (initially), general malaise, headache and facial pain, but do not include sneezing. The onset was gradual 1 week(s) ago. The symptoms occur frequently. The patient describes this as moderate in severity and unchanged. Current treatment includes acetaminophen and NSAIDs. Risk factors do not include smoking. The patient has been exposed to an individual with similar symptoms. Patient denies history of seasonal allergies, recurrent strep pharyngitis or recurrent ear infections. 06-04-2017 Unclassified (4 sources) Well Adult, female - The patient feels well with no complaints, has good energy level and is sleeping well. The patient is not using any method of contraception at this time. The patient has a balanced diet. The patient exercises daily. The patient sleeps 6 hours per night. 11-21-2016 Unclassified (4 sources) Preoperative Clearance - Surgical procedure(s) planned: other (left hip surgery). Date of procedure: (06/10/16) Surgeon: (Dr Arsen Vargas) and Location of procedure: ([facility]) There have been no problems with general anesthesia or blood/blood products. Prosthetics include eye glasses. Note for Pre-operative clearance : she is nervous about procedure, but has no medical concerns.... 06-03-2016 Unclassified (4 sources) Hip pain - The onset of the hip pain has been gradual following no specific incident and has been occurring in an intermittent pattern for 4 years. The course has been gradually worsening. The hip pain is described as being a moderate sharp stabbing located in the hip (left). The hip pain radiates to the anterior thigh. The pain is aggravated by general physical activity, any movement, walking, prolonged standing and work duties. Relieving factors include medication (aleve bid x 2 weeks). The symptoms have been associated with limping, stiffness, weakness, grinding (knee), decreased range of motion, difficulty arising from chair and difficulty arising from a kneeling position, while the symptoms have not been associated with numbness, swelling in the leg or fever. Previous evalutations have been completed by a chiropractor. Previous physical therapy has included active range of motion exercises. There has been no previous surgeries. There has been no need for use of assistive devices. Previous medications have included Ibuprofen. Note for Hip pain : Pt. has been through a course of physical therapy and multiple chiropractors with minimal improvement. Dr [facility] ([facility]) did a hip x-ray several years ago. SHe is ready to pursue a more traditional approach 05-08-2016 Unclassified (4 sources) Well Adult, female - The patient feels well with minor complaints (1) Pt. c/o stiffness in left leg, from left buttock to left knee, x several years. Chiropractic treatments have been ineffective. Pt. is questioning possible physical therapy 3) Pt. is questioning if she can get a handicap placard for her stiffness), has good energy level (except left leg wears me out ) and is sleeping poorly. The first day of the last menstrual period was : (post menapausal x 2 years.). The patient is not using any method of contraception at this time. The patient has a balanced diet and takes supplemental vitamins. The patient exercises none (d/t left leg stiffness). The patient sleeps 6 hours per night. Note for Well Adult, female : Pt. has preventative health paperwork to be completed today. 11-22-2015 Unclassified (4 sources) Ear pain - The onset of the pain has been gradual (Was seen in March and started on amoxicillin for bilateral OM - right ear never got completely better. ) and has been occurring in a persistent pattern. The course has been increasing. The pain is described as moderate. The pain is felt in the right ear. There has been no associated fever, sore throat, runny nose or cough. Medical History does not include seasonal allergies or recurrent sinusitis. 08-02-2015 Unclassified (4 sources) Ear pain - The onset of the pain has been gradual and has been occurring in a persistent pattern for 5 days. The pain is described as a dull aching (first started out as a throbbing pain). The pain is felt in the right ear (the right is is the worse, does have some pain of the left ear as well). The symptoms have been associated with decreased hearing, runny nose and tinnitus, while the symptoms have not been associated with fever, non-purulent discharge from ear, purulent discharge from ear, sore throat, cough or vertigo. Note for Ear pain : Patient had a cough on 03/28/2015 and was prescribed a cough syrup that resolved her cough and then she developed ear pain. 04-08-2015 Unclassified (4 sources) Back pain - The onset of the back pain has been gradual and has been occurring in an intermittent pattern for 1 year. The course has been recurrent. The pain is characterized as stabbing and piercing. The pain is located in the lower back (left) and radiates to the left thigh and left groin. There are no precipitating factors. The symptoms are aggravated by prolonged standing (position of leg determines level of pain.). There has been no associated leg weakness or paresthesias in leg. Note for Back pain : Pt takes aleve which temporarily relieves pain. SHe has been to the chiropractor which provides relief for 2-3 days, but then always comes back...she is requesting steroid shot today 02-24-2014 Unclassified (4 sources) Well Adult, female - The patient feels well with no complaints, has good energy level and is sleeping well. The first day of the last menstrual period was : (October 24 2013 (had not had period for 9 months prior to this date)). The current method of contraception is: none (has not had sex in 17 years - unable). The patient has a balanced diet. The patient does not exercise. The patient sleeps 6 hours per night. 11-02-2013 Results Test Name Value Interpretation Reference Range Facil ity Vital Signs Date Time Vital Sign Value Performing Clinician Piter steele 03-10-2023 10:10-0500 Body height 157.[address] [facility] [employer], [employer] 03-10-2023 10:10-0500 Body mass index (BMI) [Ratio] 39.14 kg/m2 Leora Mcgovern [facility], [facility] 03-10-2023 10:10-0500 Body surface area Derived from formula 1.97 m2 [facility] [employer] 03-10-2023 10:10-0500 Body weight 97.07 kg [facility], [facility].; [employer], [employer] 03-10-2023 10:10-0500 Diastolic blood pressure 96 mm[Hg] [facility] Mcgovern [facility] [employer] Encounters Encounter Date Encounter Type Care Provider Facility Start: 03-14-2023 End: 03-14-2023 Medication Yolanda Church [facility]-C [facility] Start: 03-10-2023 End: 03-10-2023 Office outpatient visit 15 minutes Yolanda Church [facility]-C [facility] Start: 03-10-2023 End: 03-10-2023 Preprocedural examination done Yolanda Church PA-C [facility] [employer], [employer] Start: 01-23-2023 End: 01-23-2023 Historical Summary [facility]anda Church [facility]C [facility] Start: 12-20-2022 End: 12-20-2022 ambulatory YOLANDA PAC CHURCH [facility] Start: 12-17-2022 End: 12-17-2022 ambulatory YOLANDA PAC CHURCH [facility] Start: 12-02-2022 End: 12-02-2022 Historical Summary Yolanda Church PA-C Work Phone[facility] Start: 11-20-2022 End: 11-20-2022 Orders Yolanda Church PA-C Work Phone: [employer] Start: 11-20-2022 End: 11-20-2022 Patient encounter status Yolanda Church PA-C Work Phone: [employer]; [employer] Start: 11-20-2022 End: 11-20-2022 Periodic preventive med est patient 40-64yrs Yolanda Church PA-C Work Phone: [employer] Start: 10-11-2022 End: 10-11-2022 ambulatory [facility] Start: 09-12-2022 End: 09-12-2022 ambulatory [facility] Start: 08-14-2022 End: 08-14-2022 ambulatory [facility] Start: 06-03-2022 End: 06-03-2022 Medication Yolanda Church PA-C Work Phone: [employer] Start: 06-03-2022 End: 06-03-2022 ambulatory YOLANDA PAC CHURCH [facility] Start: 05-29-2022 End: 05-29-2022 Orders Yolanda Church PA-C Work Phone: [employer] Start: 04-11-2022 End: 04-11-2022 Office outpatient visit 15 minutes Yolanda Church PA-C Work Phone: [employer] Start: 11-26-2021 End: 11-26-2021 Patient encounter status Yolanda Church PA-C Work Phone: [employer]; [employer] Start: 11-26-2021 End: 11-26-2021 Periodic preventive med est patient 40-64yrs Yolanda Church PA-C Work Phone: [employer] Start: 11-16-2021 End: 11-16-2021 Orders Yolanda Church PA-C Work Phone: [employer] Start: 10-12-2021 End: 10-12-2021 Orders Yolanda Church PA-C Work Phone: [employer] Start: 03-02-2021 End: 03-02-2021 Office outpatient visit 15 minutes Yolanda Church PA-C Work Phone: [employer]. Start: 12-28-2020 End: 12-28-2020 Medication Yolanda Church PA-C Work Phone: [employer]. Start: 12-25-2020 End: 12-25-2020 Office outpatient visit 15 minutes Yolanda Church PA-C Work Phone: [employer] Start: 11-29-2020 End: 11-29-2020 Patient encounter procedure Yolanda Church PA-C Work Phone: [employer]; [employer]. Start: 11-29-2020 End: 11-29-2020 Periodic preventive med est patient 40-64yrs Yolanda Church PA-C Work Phone: [employer]. Start: 11-22-2020 End: 11-22-2020 Orders Yolanda Church PA-C Work Phone: [employer] Start: 11-24-2019 End: 11-24-2019 Patient encounter procedure Yolanda Church PA-C Work Phone: [employer]. Start: 11-25-2018 End: 11-23-2018 Historical Summary Yolanda Church PA-C Work Phone: [employer] Start: 11-25-2018 End: 11-25-2018 Patient encounter procedure Maggi Villarreal LPN [employer] Start: 11-13-2018 End: 11-16-2018 Orders Yolanda Church PA-C Work Phone: [employer] Start: 10-05-2018 End: 10-05-2018 Orders Yolanda Church PA-C Work Phone: [employer] Start: 11-20-2017 End: 11-20-2017 Historical Summary Yolanda Church PA-C Work Phone: [employer] Start: 11-04-2017 End: 11-04-2017 Patient encounter procedure Yolanda Church PA-C Work Phone: [employer]. Start: 10-16-2017 End: 10-20-2017 Orders Yolanda Churhc PA-C Work Phone: [employer] Start: 06-04-2017 End: 06-04-2017 Office outpatient visit 25 minutes Yolanda Church PA-C Work Phone: [employer] Start: 11-21-2016 End: 11-21-2016 Manual pelvic examination Trinity Fu RN [employer]. Start: 11-21-2016 End: 11-21-2016 Patient encounter procedure Yolanda Church PA-C Work Phone: [employer] Start: 10-23-2016 End: 10-31-2016 Orders Yolanda Church PA-C Work Phone: [employer] Start: 06-03-2016 End: 06-03-2016 Patient encounter procedure Yolanda Church PA-C Work Phone: [employer]. Start: 06-03-2016 End: 06-03-2016 Preoperative state Yolanda Church PA-C Work Phone: [employer]; [employer]. Start: 05-16-2016 End: 05-16-2016 Patient encounter procedure Yolanda Church PA-C Work Phone: [employer] Start: 05-08-2016 End: 05-08-2016 Patient encounter procedure Yolanda Church PA-C Work Phone: [employer] Start: 11-22-2015 End: 11-22-2015 Patient encounter procedure Yue D Plummer PA-C Work Phone: [employer] Start: 10-04-2015 End: 10-04-2015 Orders Yolanda Cuhrch PA-C Work Phone: [employer] Start: 08-02-2015 End: 08-02-2015 Patient encounter procedure Yolanda Church PA-C Work Phone: [employer] Start: 04-08-2015 End: 04-08-2015 Office outpatient visit 15 minutes Yolanda Church PA-C Work Phone: [employer] Start: 03-28-2015 End: 03-29-2015 Medication Yolanda Church PA-C Work Phone: [employer] Start: 12-26-2014 End: 12-28-2014 Orders Yolanda Church PA-C Work Phone: [employer] Start: 12-12-2014 End: 12-12-2014 Manual pelvic examination Yolanda Church PA-C Work Phone: [employer]; [employer]. Start: 12-12-2014 End: 12-12-2014 Patient encounter procedure Yolanda Church PA-C Work Phone: [employer] Start: 12-08-2014 End: 12-08-2014 Historical Summary Yolanda Church PA-C Work Phone: [employer] Start: 02-24-2014 End: 02-24-2014 Patient encounter procedure Yolanda Church PA-C Work Phone: [employer] Start: 11-02-2013 End: 11-02-2013 Manual pelvic examination Yolanda Church PA-C Work Phone: [employer]; [employer]. Start: 11-02-2013 End: 11-02-2013 Patient encounter procedure Yolanda Church PA-C Work Phone: [employer] Start: 10-07-2013 End: 10-12-2013 Orders Yolanda Church PA-C Work Phone: [employer]. Admission to [facility] Yolanda Church PA-C Work Phone: [employer]. Follow-up encounter Leora Mcgovern ASSISTANT CROSS COUNTRY COACH [employer]. Follow-up encounter Yolanda olmedo PA-C Work Phone: [employer]. Patient encounter procedure Italia Paige LPN [employer].; [employer]. Patient encounter procedure Yue Bates RN [employer] Procedures Date Procedure Procedure Detail Performing Clinician Start: 03-10-2023 End: 03-24-2023 Ecg routine ecg w/least 12 lds w/i&r Yolanda Church PA-C Work Phone: Start: 12-02-2022 End: 12-02-2022 Oncology colorectal screening jas 10 dna markrs Yolanda Church PA-C Work Phone: Start: 11-30-2022 End: 11-30-2022 Cologuard Leora Mcgovern LP N Plan of Treatment Date Care Activity Detail Author Start: 10-16-2017 Screening mammograph y bi 2-view breast inc cad Mammogram Bilateral Screening (56104) Start: 16-Oct-2017 Intent [employer] [employer] dexAMETHasone so d phos (bulk) 100 % powder Ordered: 24-Feb-2014 VIRGILIO Davis Intent [employer].; [employer]. Payers Date Payer Category Payer Unknown [id number] 1960 Unknown [id number] [id number] 1960 Unknown [id number] [id number] [id number] 1960 Unknown [id number] 2.16.8 [id number] 1960 Unknown [id number] 2.16.84 [id number] 1960 Unknown [id number] [id number] [id number] Unknown [id number] Unknown [id number] Unknown [employer] Social History Date Type Detail Facility Alcohol Use: Alcohol Use: ; None. [employer]; [employer] Most Recent Primary Occupation Most Recent Primary Occupation [employer]; [employer] Tobacco Use: Tobacco Use: ; N ever smoker. [employer]; [employer] Female [employer]; [employer] Work Phone: Never smoked tobacco [employer]; [employer] Work Phone: Clinical Note 12-20-2022 Note Date & Type Note Facility 12-20-2022 Note [facility] CONSULTATION REPORT NAME ACCOUNT SEX AGE ADMIT DISCHARGE PT MED. RECORD# NUMBER DATE DATE TYPE [place], [id number] F 62 12/20/2022 12/20/2022 2 LIZY Rodriguez [id number] ROOM: DATE OF : 1960 DICTATING PHYSICIAN: Adrian Christian HISTORY OF PRESENT ILLNESS: The patient was seen today on December 20, 2022 at the [facility] in [place], [place]. She had a right hip diagnostic [...] and her recent laboratory data through her family practice doctor was told to me to [...] injection therapy. Page 1 of 2 LIZY PARRA Generator Switchboard Operator Report LIZY PARRA : 1960 PLAN: The patient will continue with Celebrex as it has no ill effects and it seems to be quite effective. We will utilize injections intermittently. She may need an epidural injection if the radicular pain continues to progress. The patient agrees to the plan, and will followup in 6 months and sooner if needed. Dictated By: Adrian Christian DO 12/20/2022 11:16 JOB #: [id number] Transcribed By: am 12/20/2022 12:00 Electronically signed by: E-SIGN: ADRIAN CHRISTIAN 12/20/22 13:28 Page 2 of 2 LIZY PARRA Generator Switchboard Operator Report [facility] Clinical Note 10-17-2022 Note Date & Type Note Facility 10-17-2022 Note [facility] CONSULTATION REPORT NAME ACCOUNT SEX AGE ADMIT DISCHARGE PT MED. RECORD# NUMBER DATE DATE TYPE [place] [id number] F 62 10/11/2022 10/11/2022 Katy Rodriguez [id number] ROOM: DATE OF : 1960 DICTATING PHYSICIAN: Adrian Christian PROGRESS NOTE HISTORY OF PRESENT ILLNESS: The [...] Lumbar radiculitis/rare. Page 1 of 2 LIZY PARRA Generator Switchboard Operator Report LIZY PARRA : 1960 3. Status post total left [...] months and trial the Celebrex. Dictated By: Adrian Christian DO 10/11/2022 09:22 JOB #: [id number] Transcribed By: am 10/11/2022 10:03 Electronically signed by: E-SIGN: ADRIAN CHRISTIAN 10/17/22 07:29 Page 2 of 2 LIZY PARRA Generator Switchboard Operator Report [facility] Clinical Note 08-15-2022 Note Date & Type Note Facility 08-15-2022 Note [facility] CONSULTATION REPORT NAME ACCOUNT SEX AGE ADMIT DISCHARGE PT MED. RECORD# NUMBER DATE DATE TYPE [place] [id number] F 62 08/14/2022 08/14/2022 2 LIZY Rodriguez [id number] ROOM: DATE OF : 1960 DICTATING PHYSICIAN: Adrian Christian August 14, 2022 Arsen Vargas MD [address] [address] RE: Lizy Parra : [address] Arsen Vargas: It was a pleasure to evaluate Mrs. Parra at our [facility] in [place], [place] on August 14, 2022. As you [...] 62-year-old female Page 1 of 3 LIZY PARRA Generator Switchboard Operator Report LIZY PARRA : 1960 who is alert x3 and [...] plan. Thank you for this consultation. Sincerely, Adrian Christian DO Dictated By: Adrian Christian DO 08/14/2022 10:14 JOB #: [id number] Transcribed By: am 08/14/2022 11:12 Electronically signed by: Page 2 of 3 LIZY PARRA Generator Switchboard Operator Report LIZY PARRA : 1960 E-SIGN: ADRIAN CHRISTIAN 08/15/22 07:10 Page 3 of 3 LIZY PARRA Generator Switchboard Operator Report [facility] Summary Purpose Family History Cancer Status:Active Comments:Sister. Coronary Artery Disease Status:Active Comments :Father. DC @ 74 Diabetes Mellitus Status:Active Comments:Siste r. Cancer Status:Active Comments:Sister. Coronary Artery Disease Status:Active Comments :Father. DC @ 74 Diabetes Mellitus Status:Active Comments:Siste r. Cancer Status:Active Comments:Sister. Coronary Artery Disease Status:Active Comments :Father. DC @ 74 Diabetes Mellitus Status:Active Comments:Siste r. Cancer Status:Active Comments:Sister. Coronary Artery Disease Status:Active Comments :Father. DC @ 74 Diabetes Mellitus Status:Active Comments:Siste r. Advance Directives No Advanced Directives Records FoundNo [...] BE BASED ON THE PRIMARY CLINICAL RECORDS. [employer] provides no warranty or guarantee of the accuracy or completeness of information in this document.
--- NOTE | 2023-04-28 21:06 | EX.ED.DYSGE1 ---
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 Wears glasses Home Medications hydrocodone-acetaminophen 5-325mg 5mg-325mg 1 tab PO Q4H PRN PRN Pain 7 days #90 tabs 04/17/23 [Rx Last Taken Unknown] bisacodyl 5 mg tablet,delayed release (Alophen (bisacodyl)) 5 mg PO DAILY 04/28/23 [History Last Taken Unknown] lisinopril 20 mg tablet 20 mg PO DAILY HTN 04/28/23 [History Last Taken Unknown] Allergy/AdvReac Type Severity Reaction Status Date / Time No Known Allergies Allergy Verified 04/28/23 18:42 Surgical History (Updated 04/28/23 @ 20:38 by Jerrod Espino) History of Hx of total hip arthroplasty Previous back surgery Social History Smoking Status: Never smoker EXAM Physical Exam Const Vital Signs: 04/28/23 18:38 04/28/23 20:36 04/28/23 20:39 Temperature 99.1 F Temperature Source Oral Pulse Rate 116 H 64 Respiratory Rate 18 12 Respiratory Effort Normal Respiratory Pattern Normal Blood Pressure 156/47 H 123/53 H Blood Pressure Mean 83 76 Pulse Ox 95 99 Oxygen Delivery Method Room Air Room Air [facility] MDM Narrative Medical decision making narrative: HISTORY OF PRESENT ILLNESS: 63 to female presents with concern for diarrhea. Notes she is taking stool softeners. Denies abdominal pain, denies melena or hematochezia. Denies chest pain or shortness of breath. REVIEW OF SYSTEMS: Pertinent positives: Diarrhea Pertinent negatives: Palpitations, shortness of breath, chest pain, abdominal pain, leg swelling, focal weakness PHYSICAL EXAM: Nursing triage notes reviewed, Vital signs reviewed Constitutional: please see mdm HENT: MMM Eyes: Pupils equal round and reactive to light, Extraocular muscles intact Neck: No stridor, no JVD, full neck ROM Lungs: Clear to auscultation, No wheezing or rales. No increased work of breathing, no conversational dyspnea, no accessory muscle use, no nasal flaring. No respiratory distress noted Heart: Regular rate and rhythm, No murmurs, No rubs and No gallops, 2+ distal pulses (radial, femoral, posterior tibial) in all extremities Abdomen: Soft, there is no tenderness, rigidity, rebound or guarding, no obvious peritoneal signs, no palpable pulsatile abdominal masses, no auscultated abdominal bruit : No CVAT Extremities: No edema Neuro: No focal neurological deficits, cranial nerves II through XII intact, 5/5 strength in all extremities. Intact sensation to light touch in all extremities, 2+ reflexes bilateral patella tendons. Normal gait. No ataxia. Skin: No rash or lesions noted MEDICAL DECISION MAKING: Chief Complaint: Diarrhea External records reviewed: Read recent operative note from 04/17/2023 Factors affecting care: Lumbar stenosis MDM Narrative: Patient was hemodynamically stable, afebrile, nontoxic. Abdomen soft and nontender. Patient had no complaints. She states her diarrhea has since slowed since she stopped taking her stool softener. I encouraged her to continue to do this and use her stool softener as needed for constipation. She agreed and was discharged stable condition. The patient and/or family, caregivers express understanding. The patient and/or family, caregivers agrees with the plan. Shared decision making: I will have a discussion with the patient and or visitors regarding risk/benefits of further testing or admission. They will be made aware of of the risk/benefits inherent in this decision they will be given the opportunity to voice understanding. Total critical care time today provided was at least 0 minutes. This excludes separately billable procedures. Critical care time (if documented) is secondary to the patient having high probability of clinically significant/life threatening deterioration in the patient's condition which required my urgent intervention. Impression: 1. Diarrhea 2. Status post back surgery Dispo: Discharge Discharge Plan Triage Chief Complaint: Diarrhea Other Complaint: Fever ED Provider: Brandin Cooper Dx/Rx/DC Orders Prescriptions: No Action hydrocodone-acetaminophen 5-325 mg tablet 1 tab PO Q4H PRN PRN (Reason: Pain) 7 Days Qty: 90 0RF lisinopril 20 mg tablet 20 mg PO DAILY bisacodyl [Alophen (bisacodyl)] 5 mg tablet,delayed release (DR/EC) 5 mg PO DAILY Primary Care Provider: Alicia Washington Referrals: Alicia Washington PA [Primary Care Provider] - Capacity Legal Bristle Machine Operator Reflex Medical hold order details:: IF a medical hold is selected below, a suggested order for a MEDICAL HOLD will reflex upon signing the document. Next of kin: [place] law dictates a PRIORITY LIST for identifying legal decision-maker/legal next of kin in the following order (LNOK): 1st: The patient?s legal guardian, if any 2nd: The patient's spouse (if status is questionable, consult Risk Management) 3rd: The patient?s adult child(palmer) (majority, if multiple children) 4th: The patient?s parents 5th: The patient?s adult siblings (majority, if multiple children siblings)
== END 2023-04-28 22:11 | disposition home or self-care (01) ==
PROVIDERS: Emergency Provider Emergency Medicine; Visit Provider Emergency Medicine
DX: R19.7 Diarrhea, unspecified (principal); I10 Essential (primary) hypertension
CPT/HCPCS: 99283

== ENCOUNTER 2023-05-08 07:28 | Observation (INO) | payer OTHER, SELFPAY ==
--- NOTE | 2023-05-07 12:43 | CASEMGMT ---
Addendum entered by Kal Vargas 05/07/23 16:47: TC at this time, pt updated and is aware. Addendum entered by Kal Vargas 05/07/23 16:46: [facility] accepts and SOC is Friday. Original Note: Wound nurse notified this RN CM that Dr. Dominguez wants [facility] set up for this pt after procedure tomorrow. TC made to pt at this time. Pt denied hearing a verbal list of local in-network [facility] agencies and chose [facility]. This RN CM called [facility] to start referral for SN and stated that the pt wound vac will need to be changed by Friday, Friday, or Friday. Awaiting response.
[2023-05-08] VITALS (10 sets, daily range): BP systolic 126–177; BP diastolic 49–78; PULSE 84–123; RESP 18; TEMP 36.1–37.1; O2SAT 92–99; BMI 38.7
--- OUTSIDE RECORDS SUMMARY | 2023-05-08 05:59 | XMS RPT_ITS | CCD ---
Author Name Unknown Address [address] [facility] [address] [place] [address] Organization [facility] Care Team Providers Care Artist Color Separation Name Role Phone CJADRIAN Admitting Unavailable CHURCH, [...] Consulting Unavailable Felix POOLE, Yolanda J Unavailable Physical Therapy Provider Unavailable Rola Vargas MD, Dr. Leger ([facility]) A Unavail able Georgina Gutiérrez MD Unavailable Obi NOWAK, [place] Unavailable Kaitlin Carter LPN Unavailable Unavailable Yue Davis PA-C Unavailable [phone] Dane GARDNER, Loreta Unavailable Unavailable Royal NOWAK, [place] Unavailable Unavailable Yue Bates RN Unavailable Unavaila dominic Hawk MA, Peggy Unavailable Unavailable Abiola NOWAK, Aida Unavailable Unavailable Nickie JIMENEZ, Trinity Y Unavailable Unavailable Corey CLINICAL RESEARCH SPECIALIST, Margarita Unavailable Unavailable Pedro POOLE, Kiah Berrios Unavailable [phone] Froilan CLINICAL RESEARCH SPECIALIST, Leora Heard Unavailable Unavailab alberta Acosta MA, [place] Unavailable Unavailable Vess CLINICAL RESEARCH SPECIALIST, Maggi L Unavailable Unavailable Hong CLINICAL RESEARCH SPECIALIST, Marry Unavailable Unavailabl e Aissatou CLINICAL RESEARCH SPECIALIST, Nikki N Unavailable Unavaila ble Unavailable Unavailable Medications Current Medications Medication Drug Class(es) Dates Sig (Normalized) Sig (Original) lisinopril 20 mg oral tablet (5 sources) Angiotensin Converting Enzyme Inhibitor Start: 04-22-2023 lisinopriL 20 mg tablet ; 1 (one) tablet daily for 0 days Quantity: 30 {Tablet} Refills: 0 Ordered: 22-Apr-2023 VIRGILIO Church Start: 22-Apr-2023 Completed/Discontinued Medications Medication Drug Class(es) Dates Sig (Normalized) Sig (Original) amoxicillin 500 mg oral capsule (5 sources) Penicillin-class Antibacterial Start: 04-08-2015 End: 04-18-2015 take 1 capsule by mouth three times daily AMOXICILLIN, 500MG (Oral Capsule) ; 1 (one) Capsule three times daily for 10 days Quantity: 30 {Capsule} Refills: 0 Ordered: 08-Apr-2015 MD Georgina Gutiérrez Start: 08-Apr-2015 End: 18-Apr-2015 Status: Inactive amoxicillin 875 mg / clavulanate 125 mg oral tablet (10 sources) Penicillin-class Antibacterial Start: 03-02-2021 End: 03-12-2021 take 1 tablet by mouth twice daily Amoxicillin-Pot Clavulanate 875-125 MG Oral Tablet ; 1 (one) Tablet two times daily for 10 days Quantity: 20 {Tablet} Refills: 0 Ordered: 02-Mar-2021 VIRGILIO Church Start: 02-Mar-2021 End: 12-Mar-2021 Status: Inactive Problems Active Problems Problem Classification Problem Date Documented Date Episodic/Chronic Acute bronchitis (5 sources) Acute bronchitis; Translations: [Acute bronchitis, unspecified] 06-04-2017 Episodic Disorders of lipid metabolism (20 sources) Hyperlipidemia; Translations: [Hyperlipidemia, unspecified] 03-10-2023 Chronic Essential hypertension (15 sources) Hypertensive disorder; Translations: [Essential (primary) hypertension] 03-14-2023 Chronic Genitourinary symptoms and ill-defined conditions (10 sources) Urinary symptoms ; Translations: [Unspecified symptoms and signs involving the genitourinary system] 11-23-2021 Episodic Osteoarthritis (1 source) Unilateral primary osteoarthritis, right hip; Translations: [Unilateral primary osteoarthritis, right hip] Onset: 09-12-2022 Chronic Other circulatory disease (10 sources) Carotid bruit; Translations: [Other specified symptoms and signs involving the circulatory and respiratory systems] 03-10-2023 Episodic Other lower respiratory disease (5 sources) Cough; Translations: [Cough] 03-29-2015 Episodic Other non-traumatic joint disorders (15 sources) Hip pain; Translations: [Pain in left hip] 05-16-2016 Episodic Other nutritional; endocrine; and metabolic disorders (10 sources) Body mass index 30+ - obesity; Translations: [Body mass index (BMI) 37.0-37.9, adult] 03-10-2023 Chronic Other screening for suspected conditions (not mental disorders or infectious disease) (20 sources) Patient encounter status; Translations: [Encounter for screening for malignant neoplasm of colon] 11-22-2015 Episodic Otitis media and related conditions (20 sources) Otitis media of right ear; Translations: [Otitis media, unspecified, right ear] 11-23-2021 Episodic Residual codes; unclassified (10 sources) Colon cancer screening declined; Translations: [Procedure and treatment not carried out because of patient's decision for unspecified reasons] 03-10-2023 Episodic Residual codes; unclassified (10 sources) Mammogram declined; Translations: [Procedure and treatment not carried out because of patient's decision for unspecified reasons] 11-26-2021 Episodic Spondylosis; intervertebral disc disorders; other back problems (20 sources) Low back pain; Translations: [Lumbago] 03-10-2023 Episodic Unclassified (5 sources) deliveries 11-20-2022 Past or Other Problems Problem Classification Problem Date Documented Date Episodic/Chronic Other non-traumatic joint disorders (3 sources) Pain in right hip; Translations: [Pain in right hip] Onset: 09-12-2022 Episodic Unclassified (5 sources) Preoperative Clearance - Surgical procedure(s) planned: other (Lumbar 4 Lumbar 5, Lumbar 5-sacral 1 posterior lumbar interbody fusion, decompression, posterior spinal fusion with instrumentation, use of allograft.). Date of procedure: (to be determined) Surgeon: (Dr Palmer) and Location of procedure: ([facility]) There have been no problems with general anesthesia or blood/blood products. Prosthetics include eye glasses. Note for Pre-operative clearance : Patient had screening labs completed in November.She reports that she is feeling well at this time. 03-10-2023 Unclassified (5 sources) Well adult female - The patient [...] instead.Due for colon cancer screening 11-20-2022 Unclassified (5 sources) Back pain - The onset of [...] without significant relief of pain. 04-11-2022 Unclassified (5 sources) Well adult female - The patient [...] cancer screening today.Needs form completed for Workplace ([employer]Has labs to be reviewed today. 11-26-2021 Unclassified (5 sources) Cold Symptoms - Symptoms include ear [...] tonsillectomy or recurrent ear infections. 03-02-2021 Unclassified (5 sources) Concern - Patient is here today [...] intake and drinking cranberry juice. 12-25-2020 Unclassified (5 sources) Well adult female - The patient feels well with no complaints (does have a form today for work), has good energy level and is sleeping well. The patient has a balanced diet. The patient does not exercise. The patient sleeps 7 (6.5-7) hours per night. 11-24-2019 Unclassified (5 sources) Well Adult, female - The patient feels well with no complaints, has good energy level and is sleeping well. The patient is not using any method of contraception at this time. The patient has a balanced diet and takes supplemental vitamins. The patient does not exercise. The patient sleeps 6 hours per night. 11-25-2018 Unclassified (5 sources) Well Adult, female - The patient feels well with no complaints, has good energy level and is sleeping well. The first day of the last menstrual period was : (2008). The patient has a balanced diet and takes supplemental vitamins. The patient exercises weekly. The patient sleeps 6 hours per night. Note for Well Adult, female : form completion for [employer] 11-04-2017 Unclassified (5 sources) Cold Symptoms - Symptoms include nasal [...] pharyngitis or recurrent ear infections. 06-04-2017 Unclassified (5 sources) Well Adult, female - The patient feels well with no complaints, has good energy level and is sleeping well. The patient is not using any method of contraception at this time. The patient has a balanced diet. The patient exercises daily. The patient sleeps 6 hours per night. 11-21-2016 Unclassified (5 sources) Preoperative Clearance - Surgical procedure(s) planned: other (left hip surgery). Date of procedure: (06/10/16) Surgeon: (Dr Arsen Vargas) and Location of procedure: ([facility]) There have been no problems with general anesthesia or blood/blood products. Prosthetics include eye glasses. Note for Pre-operative clearance : she is nervous about procedure, but has no medical concerns.... 06-03-2016 Unclassified (5 sources) Hip pain - The onset of [...] multiple chiropractors with minimal improvement. Dr Rodriguez ([facility]) did a hip x-ray several years ago. SHe is ready to pursue a more traditional approach 05-08-2016 Unclassified (5 sources) Well Adult, female - The patient [...] paperwork to be completed today. 11-22-2015 Unclassified (5 sources) Ear pain - The onset of [...] seasonal allergies or recurrent sinusitis. 08-02-2015 Unclassified (5 sources) Ear pain - The onset of [...] then she developed ear pain. 04-08-2015 Unclassified (5 sources) Back pain - The onset of [...] is requesting steroid shot today 02-24-2014 Unclassified (5 sources) Well Adult, female - The patient [...] Date Time Vital Sign Value Performing Clinician Fache steele 03-10-2023 10:10-0500 Body height 157.48 cm [facility] [employer] 03-10-2023 10:10-0500 Body mass index (BMI) [Ratio] 39.14 kg/m2 Leora Mcgovern [facility], [facility].; [employer] [facility] 03-10-2023 10:10-0500 Body surface area Derived from formula 1.97 m2 Rhina Froilan [facility], [facility].; [facility] 03-10-2023 10:10-0500 Body weight 97.07 kg [facility], [facility].; [employer], [employer] 03-10-2023 10:10-0500 Diastolic blood pressure 96 mm[Hg] [facility]govern [facility], [facility].; [employer], [employer] Encounters Encounter Date Encounter Type Care Provider Facility Start: 04-29-2023 Review Yolanda Church P A-C [facility] Phone[facility]. Start: 03-14-2023 End: 03-14-2023 Medication Yolanda Church PA-C Work Phone[facility]. Start: 03-10-2023 End: 03-10-2023 Office outpatient visit 15 minutes Yolanda Church PA-C Work Phone[facility] [facility] Start: 03-10-2023 End: 03-10-2023 Preprocedural examination done Yolanda Church PA-C Work Phone: [facility] [facility] [employer] Start: 01-23-2023 End: 01-23-2023 Historical Summary Yolanda Church PA-C Work Phone: [facility] [facility]. Start: 12-20-2022 End: 12-20-2022 ambulatory YOLANDA PAC CHURCH [facility] Start: 12-17-2022 End: 12-17-2022 ambulatory YOLANDA PAC CHURCH [facility] Start: 12-02-2022 End: 12-02-2022 Historical Summary Yolanda Church PA-C Work Phone: [facility] Start: 11-20-2022 End: 11-20-2022 Orders Yolanda Church PA-C Work Phone: [employer] Start: 11-20-2022 End: 11-20-2022 Patient encounter status Yolanda Church PA-C Work Phone: [facility]; [facility] Start: 11-20-2022 End: 11-20-2022 Periodic preventive med est patient 40-64yrs Yolanda Church PA-C Work Phone: [facility] Start: 10-11-2022 End: 10-11-2022 ambulatory [facility] Start: 09-12-2022 End: 09-12-2022 ambulatory [facility] Start: 08-14-2022 End: 08-14-2022 ambulatory [facility] Start: 06-03-2022 End: 06-03-2022 Medication Yolanda Church PA-C Work Phone: [facility] Start: 06-03-2022 End: 06-03-2022 ambulatory YOLANDA PAC CHURCH [facility] Start: 05-29-2022 End: 05-29-2022 Orders Yolanda Church PA-C Work Phone: [facility] Start: 04-11-2022 End: 04-11-2022 Office outpatient visit 15 minutes Yolanda Church PA-C Work Phone: [facility] Start: 11-26-2021 End: 11-26-2021 Patient encounter status Yolanda Church PA-C Work Phone: [facility]; [facility] Start: 11-26-2021 End: 11-26-2021 Periodic preventive med est patient 40-64yrs Yolanda Church PA-C Work Phone: [facility] Start: 11-16-2021 End: 11-16-2021 Orders Yolanda Church PA-C Work Phone: [employer] Start: 10-12-2021 End: 10-12-2021 Orders Yolanda Church PA-C Work Phone: [facility] Start: 03-02-2021 End: 03-02-2021 Office outpatient visit 15 minutes Yolanda Church PA-C Work Phone: [employer] Start: 12-28-2020 End: 12-28-2020 Medication Yolanda Church PA-C Work Phone: [employer] Start: 12-25-2020 End: 12-25-2020 Office outpatient visit 15 minutes Yolanda Church PA-C Work Phone: [facility] Start: 11-29-2020 End: 11-29-2020 Patient encounter procedure Yolanda Church PA-C Work Phone: [facility]; [employer] Start: 11-29-2020 End: 11-29-2020 Periodic preventive med est patient 40-64yrs Yolanda Church PA-C Work Phone: [facility] Start: 11-22-2020 End: 11-22-2020 Orders Yolanda Church PA-C Work Phone: [facility] Start: 11-24-2019 End: 11-24-2019 Patient encounter procedure Yolanda Church PA-C Work Phone: [facility] Start: 11-25-2018 End: 11-23-2018 Historical Summary Yolanda Church PA-C Work Phone: [facility] Start: 11-25-2018 End: 11-25-2018 Patient encounter procedure Maggi Villarreal LPN [facility]. Start: 11-13-2018 End: 11-16-2018 Orders Yolanda Church PA-C Work Phone: [facility] Start: 10-05-2018 End: 10-05-2018 Orders Yolanda Church PA-C Work Phone: [employer] Start: 11-20-2017 End: 11-20-2017 Historical Summary Yolanda Church PA-C Work Phone: [employer] Start: 11-04-2017 End: 11-04-2017 Patient encounter procedure Yolanda Church PA-C Work Phone: [facility] Start: 10-16-2017 End: 10-20-2017 Orders Yolanda Church PA-C Work Phone: [facility] Start: 06-04-2017 End: 06-04-2017 Office outpatient visit 25 minutes Yolanda Church PA-C Work Phone: [employer] Start: 11-21-2016 End: 11-21-2016 Manual pelvic examination Trinity Fu RN [facility] [employer] Start: 11-21-2016 End: 11-21-2016 Patient encounter procedure Yolanda Church PA-C Work Phone: [facility] Start: 10-23-2016 End: 10-31-2016 Orders Yolanda Church PA-C Work Phone: [employer] Start: 06-03-2016 End: 06-03-2016 Patient encounter procedure Yolanda Church PA-C Work Phone: [facility] Start: 06-03-2016 End: 06-03-2016 Preoperative state Yolanda Church PA-C Work Phone: [employer] Start: 05-16-2016 End: 05-16-2016 Patient encounter procedure Yolanda Church PA-C Work Phone: [facility] Start: 05-08-2016 End: 05-08-2016 Patient encounter procedure Yolanda Church PA-C Work Phone: [facility] Start: 11-22-2015 End: 11-22-2015 Patient encounter procedure Yue Davis PA-C Work Phone: [facility] Start: 10-04-2015 End: 10-04-2015 Orders Yolanda Church PA-C Work Phone: [employer] Start: 08-02-2015 End: 08-02-2015 Patient encounter procedure Yolanda Church PA-C Work Phone: [facility] Start: 04-08-2015 End: 04-08-2015 Office outpatient visit 15 minutes Yolanda Church PA-C Work Phone: [facility] Start: 03-28-2015 End: 03-29-2015 Medication Yolanda Church PA-C Work Phone: [facility] Start: 12-26-2014 End: 12-28-2014 Orders Yolanda Church PA-C Work Phone: [facility] Start: 12-12-2014 End: 12-12-2014 Manual pelvic examination Yolanda Church PA-C Work Phone: [employer]; [employer] Start: 12-12-2014 End: 12-12-2014 Patient encounter procedure Yolanda Church PA-C Work Phone: [facility] Start: 12-08-2014 End: 12-08-2014 Historical Summary Yolanda Church PA-C Work Phone: [employer] Start: 02-24-2014 End: 02-24-2014 Patient encounter procedure Yolanda Church PA-C Work Phone: [facility] Start: 11-02-2013 End: 11-02-2013 Manual pelvic examination Yolanda Church PA-C Work Phone: [employer]; [facility] Start: 11-02-2013 End: 11-02-2013 Patient encounter procedure Yolanda Church PA-C Work Phone: [employer] Start: 10-07-2013 End: 10-12-2013 Orders Yolanda Church PA-C Work Phone: [employer]. Admission to [facility] Yolanda Church PA-C Work Phone: [employer] Follow-up encounter Leora Mcgovern CLINICAL RESEARCH SPECIALIST [facility].; [employer]. Follow-up encounter Yolanda olmedo PA-C Work Phone: [employer] Patient encounter procedure Italia Paige CLINICAL RESEARCH SPECIALIST [facility].; [employer] Patient encounter procedure Yue Bates RN [facility] [employer] Procedures Date Procedure Procedure Detail Performing Clinician Start: 04-17-2023 End: 04-17-2023 Lumbar sympathectomy Loreta Vela MA Plan of Treatment Date Care Activity Detail Author Start: 10-16-2017 Screening mammograph y bi 2-view breast inc cad Mammogram Bilateral Screening (81829) Start: 16-Oct-2017 Intent [employer] dexAMETHasone so d phos (bulk) 100 % powder Ordered: 24-Feb-2014 VIRGILIO Davis Intent [employer] Payers Date Payer Category Payer Unknown [id number] [id number] 1960 Unknown [id number] 1960 Unknown [id number] 1960 Unknown [id number] [id number] 1960 Unknown [id number] 1960 Unknown [id number] [id number] Unknown [id number] Unknown [id number] Unknown [employer] Social History Date Type Detail Facility Alcohol Use: Alcohol Use: ; None. [facility] Most Recent Primary Occupation Most Recent Primary Occupation [employer]; [employer] Tobacco Use: Tobacco Use: ; N ever smoker. [employer]; [facility] Female [employer]; [facility] Work Phone: Never smoked tobacco [employer]; [employer] Work Phone: Clinical Note 12-20-2022 Note Date & Type Note Facility 12-20-[address] [facility] REPORT NAME ACCOUNT SEX AGE ADMIT DISCHARGE PT MED. RECORD# NUMBER DATE DATE TYPE [place], [id number] F 62 12/20/2022 12/20/2022 2 LIZY Rodriguez [id number] ROOM: DATE OF : 1960 DICTATING PHYSICIAN: Adrian Christian HISTORY OF PRESENT ILLNESS: The patient was seen today on December 20, 2022 at the [facility] in [place], [place]. She had a right hip diagnostic [...] therapy. Page 1 of 2 LIZY PARRA [employer] Purchasing Agent Report LIZY PARRA : 1960 PLAN: The [...] Adrian Christian DO 12/20/2022 11:16 JOB #: [id number] Transcribed By: am 12/20/2022 12:00 Electronically signed by: E-SIGN: ADRIAN CHRISTIAN 12/20/22 13:28 Page 2 of 2 LIZY PARRA [employer] Purchasing Agent Report [facility] Clinical Note 10-17-2022 Note Date & Type Note Facility 10-17-[address] [facility] REPORT NAME ACCOUNT SEX AGE ADMIT DISCHARGE PT MED. RECORD# NUMBER DATE DATE TYPE [place] [id number] F 62 10/11/2022 10/11/2022 2 LIZY Rodriguez [id number] ROOM: DATE OF : 1960 DICTATING PHYSICIAN: [...] radiculitis/rare. Page 1 of 2 LIZY PARRA [employer] Purchasing Agent Report LIZY PARRA : 1960 3. Status [...] Adrian Christian DO 10/11/2022 09:22 JOB #: [id number] Transcribed By: am 10/11/2022 10:03 Electronically signed by: E-SIGN: ADRIAN CHRISTIAN 10/17/22 07:29 Page 2 of 2 LIZY PARRA [employer] Purchasing Agent Report [facility] Clinical Note 08-15-2022 Note Date & Type Note Facility 08-15-[address] [facility] REPORT NAME ACCOUNT SEX AGE ADMIT DISCHARGE PT MED. RECORD# NUMBER DATE DATE TYPE [place], [id number] F 62 08/14/2022 08/14/2022 2 LIZY Rodriguez [id number] ROOM: DATE OF : 1960 DICTATING PHYSICIAN: Adrian Christian August 14, 2022 Arsen Vargas MD [address] [address] RE: Lizy Parra : [address] Arsen Vargas: It was a pleasure to evaluate Mrs. Parra at our [facility] at [facility] in [place], [place] on August 14, 2022. As you [...] female Page 1 of 3 LIZY PARRA [employer] Purchasing Agent Report LIZY PARRA : 1960 who is [...] Adrian Christian DO 08/14/2022 10:14 JOB #: [id number] Transcribed By: am 08/14/2022 11:12 Electronically signed by: Page 2 of 3 LIZY PARRA Railroad Purchasing Agent Report LIZY PARRA : 1960 E-SIGN: ADRIAN CHRISTIAN 08/15/22 07:10 Page 3 of 3 LIZY PARRA [employer] Purchasing Agent Report [facility] Summary Purpose Family History Cancer Status:Active Comments:Sister. Coronary Artery Disease Status:Active Comments :Father. [place] @ 74 Diabetes Mellitus Status:Active Comments:Siste r. Cancer Status:Active Comments:Sister. Coronary Artery Disease Status:Active Comments :Father. [place] @ 74 Diabetes Mellitus Status:Active Comments:Siste r. Cancer Status:Active Comments:Sister. Coronary Artery Disease Status:Active Comments :Father. [place] @ 74 Diabetes Mellitus Status:Active Comments:Siste r. Cancer Status:Active Comments:Sister. Coronary Artery Disease Status:Active Comments :Father. [place] @ 74 Diabetes Mellitus Status:Active Comments:Siste r. Cancer Status:Active Comments:Sister. Coronary Artery Disease Status:Active Comments :Father. [place] @ 74 Diabetes Mellitus Status:Active Comments:Siste r. Advance Directives No Advanced Directives Records FoundNo Advanced Directives Records Found Additional Source Comments INFORMATION SOURCE (unrecogn ized section and content) DATE CREATED AUTHOR AUTHOR'S DESTINEY ATION 03/12/2023 [facility] FOR RECORDS [...] BE BASED ON THE PRIMARY CLINICAL RECORDS. [employer] provides no warranty or guarantee of the accuracy or completeness of information in this document.
[2023-05-08] MEDS: Lactated Ringers 1,000 ML 15 ML IV (06:25)
--- NOTE | 2023-05-08 07:25 | PCM.OPRPT ---
Report of Operation Date of Procedure: 05/08/23 Description of Surgical Findings:: Preop diagnosis: #1 lumbar wound infection Postop diagnosis: #1 lumbar wound infection Procedures performed: #1 lumbar irrigation debridement, wound exploration 2. Application of lumbar wound VAC Statement of medical necessity: The patient is a 63-year-old female with postoperative wound infection after lumbar fusion. Lumbar irrigation debridement wound exploration and application of wound VAC have been recommended. They have opted for operative intervention understanding the risk to include but not limited to infection, bleeding, damage to nerves arteries and veins, possibility of spinal fluid leak, nonunion, hardware failure, continued pain, need for further surgery, deep vein thrombosis, pulmonary embolism, heart attack, risk of stroke or . Description of the procedure: The patient was identified in the preoperative holding area. There they received preoperative IV antibiotics and was then transferred to the operative suite. Once in the operative suite after general endotracheal anesthesia was established, the patient was positioned prone on the Kristian operating table. All bony prominences were padded accordingly. The lumbar spine was prepped and draped in a standard fashion. Bear hugger's were not turned on until the drapes were placed and sealed with Ioban. The previous lumbar incision measuring about 5 inches was reopened with a scalpel. A significant amount of purulent fluid was encountered. This was cultured. The wound was thoroughly irrigated. The fascia was inspected and found to be intact. A second set of cultures was taken. Any necrotic tissue was thoroughly debrided and the wound margins were debrided with a 15 blade scalpel. The wound was then thoroughly irrigated with 3000 L of saline through a pulse resource room special education teacher. A wound VAC was then applied. The patient was extubated and taken to the PACU without incident Surgeon: Gurjit Dominguez Type of Anesthesia: General Estimated Blood Loss (mL): 10 cc Fluids Replaced: 1000 cc Grafts/Implants Used: Wound VAC Complications None Admit VTE Documentation VTE Present on Admission: No
--- NOTE | 2023-05-08 07:25 | PCM.PN.ORT ---
Subjective Subjective Seen and examined postop. Resting comfortably. Pain controlled. No complaints Objective Data Objective Data Vital Signs: Vital Signs Temp Pulse Resp BP Pulse Ox O2 Del Method 97 F L 97 18 135/61 H 97 Room Air 05/08/23 06:26 05/08/23 06:26 05/08/23 06:26 05/08/23 06:26 05/08/23 06:26 05/08/23 06:26 Oxygen Delivery Method Room Air Weight: 205 lb Body Mass Index (BMI) 38.7 Lab / Micro Data 05/08/23 12:19 Physical Exam Const alert, oriented x3 and no apparent distress General Appearance: cooperative, comfortable and well kempt HEENT normocephalic and head/scalp atraumatic Eyes EOMs intact bilaterally and conjunctivae normal Neck full ROM General: normal visual inspection Chest inspection of chest normal and palpation of chest normal Resp normal respiratory effort and normal air movement Cardio regular rate, regular rhythm and peripheral pulses 2+ throughout GI soft to palpation, non-tender and non-distended Back/Spine Back/Spine Narrative: Lumbar wound VAC in place and functioning Cervical Spine: cervical ROM normal Thoracic Spine / Upper Back: normal to inspection Lumbar Spine / Lower Back: normal to inspection Extremity normal to inspection, full ROM, normal capillary refill, no clubbing, cyanosis or edema and no calf tenderness Skin no rashes or lesions noted General Skin Exam: no breakdown Neuro oriented x3, CN's II-XII intact bilaterally, moves all extremities, no focal motor deficits, no sensory deficits noted and deep tendon reflexes 2+ bilaterally Motor Exam: strength 5/5 throughout and muscle tone normal throughout Assessment & Plan Assessment/Plan (1) Surgical wound infection: PLAN: Okay to admit See orders
--- NOTE | 2023-05-08 07:25 | PCM.DC.SUM ---
Providers Date of Admission: 05/08/23 Primary Care Physician: DALLAS Mcconnell Reason For Visit: LUMBAR IRRIGATION AND DEBRIDEMENT, Medications at Discharge Home Medications hydrocodone-acetaminophen 5-325mg 5mg-325mg 1 tab PO Q4H PRN PRN Pain 7 days #90 tabs 04/17/23 bisacodyl 5 mg tablet,delayed release (Alophen (bisacodyl)) 5 mg PO DAILY 04/28/23 lisinopril 20 mg tablet 20 mg PO DAILY HTN 04/28/23 Hospital Course Operations - (Lumbar irrigation, debridement, application of wound VAC) Summary of Care Provided Minutes Spent on Discharge: 15 Hospital Course: The patient is a 63-year-old female who underwent lumbar irrigation debridement and application of wound VAC on 05/08/2023. She was subsequently admitted. The hospitalist was consulted for medical management and infectious disease was consulted for antibiotic management. After arrangements were made for home health care for wound VAC changes as well as IV antibiotics the patient was subsequently discharged home to follow-up with Dr. Dominguez in 3 weeks Physical Exam Const alert, oriented x3 and no apparent distress General Appearance: cooperative, comfortable and well kempt Neck full ROM General: normal visual inspection Resp normal respiratory effort and normal air movement Effort and Inspection: able to speak in complete sentences Cardio regular rate and peripheral pulses 2+ throughout GI soft to palpation, non-tender and non-distended Back/Spine Back/Spine Narrative: Lumbar wound VAC in place and functioning Cervical Spine: cervical ROM normal Thoracic Spine / Upper Back: normal to inspection Lumbar Spine / Lower Back: normal to inspection Extremity normal to inspection, full ROM, normal capillary refill, no clubbing, cyanosis or edema and no calf tenderness Skin no rashes or lesions noted General Skin Exam: no breakdown Neuro oriented x3, CN's II-XII intact bilaterally, moves all extremities, no focal motor deficits, no sensory deficits noted and deep tendon reflexes 2+ bilaterally Motor Exam: strength 5/5 throughout and muscle tone normal throughout Weight / BMI Weight Weight: 205 lb Body Mass Index (BMI) 38.7 ABG / Lab / Microbiology Data 05/08/23 12:19 D/C Instructions Discharge Diet: No restrictions Additional Activity Instructions: No repetitive bending twisting or lifting greater than 5 pounds. Wear back brace at all times. Okay to remove brace to sleep Call your doctor if your incision/area has: Continuous Slow Oozing, Sudden Increased Bleeding, Increased Pain/ Swelling, Increased Redness, Foul Smelling Discharge and Swelling at the incision site Call your doctor if you observe: Fever of 101 or Higher, Coldness, Increased Pain, Numbness or Tingling, Change in Color, Inability to urinate, Inability to have a bowel movement, Using more than 1 pad per hour, Shortness of breath, Dizziness, Fainting spells, Swelling in the ankles, Chest pain, Prolonged hiccupping, Increased palpitations (irregular heartbeat), Calf discomfort and Uncontrolled pain Additional Dressing/Incision Instructions: Keep wound VAC in place and functioning. Home health care to change wound VAC as needed Additional Instructions: 1. During your procedure, you received sedation through your IV. Please follow these instructions for the next 24 hours: Do not drive a motor vehicle, do not drink any alcoholic beverages, and do not sign any legal documents or make personal or business decisions. A responsible adult should stay with you at least 6 hours after the procedure. 2. Keep your surgical site/incision clean and the dressing dry and intact. You may use an ice pack at the surgical site to reduce any swelling or discomfort. 3. Monitor the incision site for any signs or symptoms of infection. Watch for redness, excessive swelling or drainage, or continued pain at the incision site after 3 days. Contact your physician immediately for a fever, chills or a temperature of 101.5? F or greater. 4. Take your medication exactly as prescribed by your physician. Do not attempt to wean yourself off any of your medications even though your pain is improving. This process needs to be carefully monitored by your doctor. Take any antibiotics prescribed exactly as directed and until they are gone. 5. Avoid stretching, bending, pulling, twisting or any sudden movements. Do not bend or twist at the waist. Wear back brace at all times 6. No lifting greater than 5 pounds. 7. Do not operate a motor vehicle, equipment or a power tool while taking pain medication 8. Do not have any manipulation done by a chiropractor or any other physician without first consulting with the surgeon 9. Please contact our office if you are even scheduled for a CT scan or an MRI. 10. Please call us if you have any questions, problems or concerns. Please Follow Up With: Gurjit Dominguez DO When: 3 weeks Meaningful Use Info Meaningful Use Diagnoses (Choose all that apply): None applicable Discharge Plan Admission Admit Date/Time: 05/08/23 07:28 Attending Provider: Gurjit Dominguez Primary Care Provider: Alicia Washington Consulting Providers: Cory Anand; Nidia Howard; Nick Torres; Brittnee,[place]; Mari,[place]; Casandra Good; Elva Benoit; Leora Gonsalves; Addi Mesa; Addi Suárez; Andres Weaver; Slava Alfaro; Sade Abbott; Juanito Cole; Edwin Anaya; Franco Mae; Lizzie Olivarez; Baltazar Morrissey; Ny Francis; Americo Obrien; Davi Gutierres; Jordan Lanier; Ricarda Quezada; Carl Vergara; Elsi Serrano NP; Abisai Kate PA Instructions Additional Instructions / Restrictions: 1. During your procedure, you received sedation through your IV. Please follow these instructions for the next 24 hours: Do not drive a motor vehicle, do not drink any alcoholic beverages, and do not sign any legal documents or make personal or business decisions. A responsible adult should stay with you at least 6 hours after the procedure. 2. Keep wound VAC in place. Home health care will change wound VAC as needed. Keep your surgical site/incision clean and the dressing dry and intact. You may use an ice pack at the surgical site to reduce any swelling or discomfort. 3. Monitor the incision site for any signs or symptoms of infection. Watch for redness, excessive swelling or drainage, or continued pain at the incision site after 3 days. Contact your physician immediately for a fever, chills or a temperature of 101.5? F or greater. 4. Take your medication exactly as prescribed by your physician. Do not attempt to wean yourself off any of your medications even though your pain is improving. This process needs to be carefully monitored by your doctor. Take any antibiotics prescribed exactly as directed and until they are gone. 5. Avoid stretching, bending, pulling, twisting or any sudden movements. Do not bend or twist at the waist. Wear back brace at all times 6. No lifting greater than 5 pounds. 7. Do not operate a motor vehicle, equipment or a power tool while taking pain medication 8. Do not have any manipulation done by a chiropractor or any other physician without first consulting with the surgeon 9. Please contact our office if you are even scheduled for a CT scan or an MRI. 10. Please call us if you have any questions, problems or concerns. Discharge Orders/Prescriptions Prescriptions: Continued hydrocodone-acetaminophen 5-325 mg tablet 1 tab PO Q4H PRN PRN (Reason: Pain) 7 Days Qty: 90 0RF lisinopril 20 mg tablet 20 mg PO DAILY bisacodyl [Alophen (bisacodyl)] 5 mg tablet,delayed release (DR/EC) 5 mg PO DAILY Discontinued cephalexin 500 mg capsule 500 mg PO TID Referrals / Follow Up: Gurjit Dominguez DO [Med Staff - Active Staff] - Alicia Washington PA [Primary Care Provider] - Disposition Disposition (needs filled in before D/C Order can be placed): Home Health Service
[2023-05-08] MEDS: Cefazolin 2 GM in 0.9% Normal Saline (100mL Bag) 100 ML IV (07:44)
[2023-05-08] MEDS: Lactated Ringers 1,000 ML 100 ML IV (09:03)
--- OUTSIDE RECORDS SUMMARY | 2023-05-08 10:05 | XMS RPT_ITS | CCD ---
Author Name Unknown Address [address] [facility] [address] [place] [address] Organization [facility] Care Team Providers Care Table Assembler Name Role Phone CJADRIAN Admitting Unavailable CHURCH, [...] Provider Unavailable Rola Vargas MD, Dr. Leger ([facility]) A Unavail able Georgina Gutirérez MD Unavailable Obi NOWAK, [place] Unavailable Kaitlin Carter LPN Unavailable Unavailable Yue aDvis PA-C Unavailable Dane GARDNER, Loreta Unavailable Unavailable Royal NOWAK, [place] Unavailable Unavailable Yue Bates RN Unavailable Unavaila dominic Hawk MA, Peggy Unavailable Unavailable Abiola NOWAK, Aida Unavailable Unavailable Nickie JIMENEZ, Trinity Y Unavailable Unavailable Corey ACCOUNTING TUTOR, Margarita Unavailable Unavailable Pedro POOLE, Kiah Berrios Unavailable [phone] Froilan ACCOUNTING TUTOR, Leora Heard Unavailable Unavailab alberta Acosta MA, [place] Unavailable Unavailable Vess ACCOUNTING TUTOR, Maggi L Unavailable Unavailable Hong ACCOUNTING TUTOR, Marry Unavailable Unavailabl e Aissatou ACCOUNTING TUTOR, Nikki N Unavailable Unavaila ble Unavailable Unavailable [...] cancer screening today.Needs form completed for [employer]Has labs to be reviewed today. 11-26-2021 Unclassified [...] (Dr Arsen Vargas) and Location of procedure: ([facility]) There have been no problems with [...] and multiple chiropractors with minimal improvement. Dr Rodriguze ([facility]) did a hip x-ray several years ago. [...] steele 03-10-2023 10:10-0500 Body height 157.48 cm [facility] [employer]. 03-10-2023 10:10-0500 Body mass index (BMI) [Ratio] 39.14 kg/m2 Loera Mcgovern [facility], [facility].; [employer] [facility] 03-10-2023 10:10-0500 Body surface area Derived from formula 1.97 m2 Rhina Froilan [facility], [facility].; [employer] 03-10-2023 10:10-0500 Body weight 97.07 kg [facility], [facility].; [employer], [employer]. 03-10-2023 10:10-0500 Diastolic blood pressure 96 mm[Hg] [facility]govern [facility], [facility].; [employer], [employer]. Encounters Encounter Date Encounter Type Care Provider Facility Start: 04-29-2023 Review Yolanda Church P A-C [facility]. Start: 03-14-2023 End: 03-14-2023 Medication Yolanda Church PA-C Work Phone[facility]. Start: 03-10-2023 End: 03-10-2023 Office outpatient visit 15 minutes Yolanda Church PA-C Work Phone[facility] Start: 03-10-2023 End: 03-10-2023 Preprocedural examination done Yolanda Church PA-C Work Phone: [facility] [employer]. Start: 01-23-2023 End: 01-23-2023 Historical Summary Yolanda Church PA-C Work Phone: [facility] Start: 12-20-2022 End: 12-20-2022 ambulatory YOLANDA PAC CHURCH [facility] Start: 12-17-2022 End: 12-17-2022 ambulatory YOLANDA PAC CHURCH [facility] Start: 12-02-2022 End: 12-02-2022 Historical Summary Yolanda Church PA-C Work Phone: [employer] Start: 11-20-2022 End: 11-20-2022 Orders Yolanda Church PA-C Work Phone: [employer] Start: 11-20-2022 End: 11-20-2022 Patient encounter status Yolanda Church PA-C Work Phone: [employer]; [employer] Start: 11-20-2022 End: 11-20-2022 Periodic preventive med est patient 40-64yrs Yolanda Church PA-C Work Phone: [employer] Start: 10-11-2022 End: 10-11-2022 ambulatory [facility] Start: 09-12-2022 End: 09-12-2022 ambulatory [facility] Start: 08-14-2022 End: 08-14-2022 ambulatory [facility] Start: 06-03-2022 End: 06-03-2022 Medication Yolanda Church PA-C Work Phone: [employer] Start: 06-03-2022 End: 06-03-2022 ambulatory YOLANDA PAC CHURCH [facility] Start: 05-29-2022 End: 05-29-2022 Orders Yolanda Church PA-C Work Phone: [employer] Start: 04-11-2022 End: 04-11-2022 Office outpatient visit 15 minutes Yolanda Church PA-C Work Phone: [employer] Start: 11-26-2021 End: 11-26-2021 Patient encounter status Yolanda Church PA-C Work Phone: [employer]; [employer] Start: 11-26-2021 End: 11-26-2021 Periodic preventive med est patient 40-64yrs Yolanda Church PA-C Work Phone: [employer] Start: 11-16-2021 End: 11-16-2021 Orders Yolanda Church PA-C Work Phone: [employer]. Start: 10-12-2021 End: 10-12-2021 Orders Yolanda Church PA-C Work Phone: [employer] Start: 03-02-2021 End: 03-02-2021 Office outpatient visit 15 minutes Yolanda Church PA-C Work Phone: [employer]. Start: 12-28-2020 End: 12-28-2020 Medication Yolanda Church PA-C Work Phone: [employer]. Start: 12-25-2020 End: 12-25-2020 Office outpatient visit 15 minutes Yolanda Church PA-C Work Phone: [employer] Start: 11-29-2020 End: 11-29-2020 Patient encounter procedure Yolanda Church PA-C Work Phone: [employer]; [employer]. Start: 11-29-2020 End: 11-29-2020 Periodic preventive med est patient 40-64yrs Yolanda Church PA-C Work Phone: [employer] Start: 11-22-2020 End: 11-22-2020 Orders Yolanda Church PA-C Work Phone: [employer] Start: 11-24-2019 End: 11-24-2019 Patient encounter procedure Yolanda Church PA-C Work Phone: [employer] Start: 11-25-2018 End: 11-23-2018 Historical Summary Yolanda Church PA-C Work Phone: [employer] Start: 11-25-2018 End: 11-25-2018 Patient encounter procedure Maggi Villarreal LPN [employer]. Start: 11-13-2018 End: 11-16-2018 Orders Yolanda Church PA-C Work Phone: [employer] Start: 10-05-2018 End: 10-05-2018 Orders Yolanda Church PA-C Work Phone: [employer]. Start: 11-20-2017 End: 11-20-2017 Historical Summary Yolanda Church PA-C Work Phone: [employer]. Start: 11-04-2017 End: 11-04-2017 Patient encounter procedure Yolanda Church PA-C Work Phone: [employer] Start: 10-16-2017 End: 10-20-2017 Orders Yolanda Church PA-C Work Phone: [employer] Start: 06-04-2017 End: 06-04-2017 Office outpatient visit 25 minutes Yolanda Church PA-C Work Phone: [employer] Start: 11-21-2016 End: 11-21-2016 Manual pelvic examination Trinity Fu RN [employer]. Start: 11-21-2016 End: 11-21-2016 Patient encounter procedure Yolanda Church PA-C Work Phone: [employer] Start: 10-23-2016 End: 10-31-2016 Orders Yolanda Church PA-C Work Phone: [employer]. Start: 06-03-2016 End: 06-03-2016 Patient encounter procedure Yolanda Church PA-C Work Phone: [employer] Start: 06-03-2016 End: 06-03-2016 Preoperative state Yolanda Church PA-C Work Phone: [employer].; [employer]. Start: 05-16-2016 End: 05-16-2016 Patient encounter procedure Yolanda Church PA-C Work Phone: [employer] Start: 05-08-2016 End: 05-08-2016 Patient encounter procedure Yolanda Church PA-C Work Phone: [employer] Start: 11-22-2015 End: 11-22-2015 Patient encounter procedure Yue Davis PA-C Work Phone: [employer] Start: 10-04-2015 End: 10-04-2015 Orders Yolanda Church PA-C Work Phone: [employer]. Start: 08-02-2015 End: 08-02-2015 Patient encounter procedure Yolanda Church PA-C Work Phone: [employer] Start: 04-08-2015 End: 04-08-2015 Office outpatient visit 15 minutes Yolanda Church PA-C Work Phone: [employer] Start: 03-28-2015 End: 03-29-2015 Medication Yolanda Church PA-C Work Phone: [employer] Start: 12-26-2014 End: 12-28-2014 Orders Yolanda Church PA-C Work Phone: [employer] Start: 12-12-2014 End: 12-12-2014 Manual pelvic examination Yolanda Church PA-C Work Phone: [employer]; [employer]. Start: 12-12-2014 End: 12-12-2014 Patient encounter procedure Yolanda Church PA-C Work Phone: [employer] Start: 12-08-2014 End: 12-08-2014 Historical Summary Yolanda Church PA-C Work Phone: [employer] Start: 02-24-2014 End: 02-24-2014 Patient encounter procedure Yolanda Church PA-C Work Phone: [employer] Start: 11-02-2013 End: 11-02-2013 Manual pelvic examination Yolanda Church PA-C Work Phone: [employer]; [employer] Start: 11-02-2013 End: 11-02-2013 Patient encounter procedure Yolanda Church PA-C Work Phone: [employer]. Start: 10-07-2013 End: 10-12-2013 Orders Yolanda Church PA-C Work Phone: [employer]. [facility] Yolanda Church PA-C Work Phone: [employer].; [employer]. Follow-up encounter Leora Mcgovern ACCOUNTING TUTOR [employer]. Follow-up encounter Yolanda olmedo PA-C Work Phone: [employer].; [employer]. Patient encounter procedure Italia Paige ACCOUNTING TUTOR [employer]. Patient encounter procedure Yue Bates RN [employer]. Procedures Date Procedure Procedure Detail Performing Clinician Start: 04-17-2023 End: 04-17-2023 Lumbar sympathectomy Loreta Vela MA Plan of Treatment Date Care Activity Detail Author Start: 10-16-2017 Screening mammograph y bi 2-view breast inc cad Mammogram Bilateral Screening (24473) Start: 16-Oct-2017 Intent [employer]. dexAMETHasone so d phos (bulk) 100 % powder Ordered: 24-Feb-2014 VIRGILIO Davis [employer]. Payers Date Payer Category Payer Unknown [id number] 2.16.8 [id number] 1960 Unknown [id number] 2.16.8 [id number] 1960 Unknown [id number] 2.16.8 [id number] 1960 Unknown [id number] 2.16.8 [id number] 1960 Unknown [id number] 2.16.84 [id number] 1960 Unknown [id number] 2.16.84 [id number] Unknown [id number] Unknown [id number] Unknown [employer] Social History Date Type Detail Facility Alcohol Use: Alcohol Use: ; None. [employer]; [employer] Most Recent Primary Occupation Most Recent Primary Occupation [employer]; [employer] Tobacco Use: Tobacco Use: ; N ever smoker. [employer]; [employer] Female [employer]; [employer] Work Phone: Never smoked tobacco [employer]; [employer] Work Phone: Clinical Note 12-20-2022 Note Date & Type Note Facility 12-20-2022 Note [facility] REPORT NAME ACCOUNT SEX AGE ADMIT DISCHARGE PT MED. RECORD# NUMBER DATE DATE TYPE [place], [id number] F 62 12/20/2022 12/20/2022 2 LIZY Rodriguez [id number] ROOM: DATE OF : 1960 DICTATING PHYSICIAN: Adrian Christian HISTORY OF PRESENT ILLNESS: The patient was seen today on December 20, 2022 at the [facility] in [place], [place]. She had a right hip diagnostic [...] therapy. Page 1 of 2 LIZY PARRA Designer Architect Report LIZY PARRA : 1960 PLAN: The [...] Adrian Christian DO 12/20/2022 11:16 JOB #: [id number] Transcribed By: am 12/20/2022 12:00 Electronically signed by: E-SIGN: ADRIAN CHRISTIAN 12/20/22 13:28 Page 2 of 2 LIZY PARRA Designer Architect Report [facility] Clinical Note 10-17-2022 Note Date & Type Note Facility 10-17-2022 Note [facility] REPORT NAME ACCOUNT SEX AGE ADMIT DISCHARGE PT MED. RECORD# NUMBER DATE DATE TYPE [place] [id number] F 62 10/11/2022 10/11/2022 2 LIZY Rodriguez [id number] ROOM: DATE OF : 1960 DICTATING PHYSICIAN: [...] radiculitis/rare. Page 1 of 2 LIZY PARRA Designer Architect Report LIZY PARRA : 1960 3. Status [...] Adrian Christian DO 10/11/2022 09:22 JOB #: [id number] Transcribed By: am 10/11/2022 10:03 Electronically signed by: E-SIGN: ADRIAN CHRISTIAN 10/17/22 07:29 Page 2 of 2 LIZY PARRA Designer Architect Report [facility] Clinical Note 08-15-2022 Note Date & Type Note Facility 08-15-2022 Note [facility] REPORT NAME ACCOUNT SEX AGE ADMIT DISCHARGE PT MED. RECORD# NUMBER DATE DATE TYPE [place], [id number] F 62 08/14/2022 08/14/2022 2 LIZY Rodriguez [id number] ROOM: DATE OF : 1960 DICTATING PHYSICIAN: Adrian Christian August 14, 2022 Arsen Vargas MD [address] [address] RE: Lizy Parra : [address] Arsen Vargas: It was a pleasure to evaluate Mrs. Parra at our [facility] in [place], [place] on August 14, 2022. As you [...] female Page 1 of 3 LIZY PARRA Designer Architect Report LIZY PARRA : 1960 who is [...] Adrian Christian DO 08/14/2022 10:14 JOB #: [id number] Transcribed By: am 08/14/2022 11:12 Electronically signed by: Page 2 of 3 LIZY PARRA Designer Architect Report LIZY PARRA : 1960 E-SIGN: ADRIAN CHRISTIAN 08/15/22 07:10 Page 3 of 3 LIZY PARRA Designer Architect Report [facility] Summary Purpose Family History Cancer Status:Active Comments:Sister. Coronary Artery Disease Status:Active Comments :Father. IA @ 74 Diabetes Mellitus Status:Active Comments:Siste r. Cancer Status:Active Comments:Sister. Coronary Artery Disease Status:Active Comments :Father. [place] @ 74 Diabetes Mellitus Status:Active Comments:Siste r. Cancer Status:Active Comments:Sister. Coronary Artery Disease Status:Active Comments :Father. [place] @ 74 Diabetes Mellitus Status:Active Comments:Siste r. Cancer Status:Active Comments:Sister. Coronary Artery Disease Status:Active Comments :Father. [place] @ 74 Diabetes Mellitus Status:Active Comments:Siste r. Cancer Status:Active Comments:Sister. Coronary Artery Disease Status:Active Comments :Father. [place] @ 74 Diabetes Mellitus Status:Active Comments:Siste r. [...] BE BASED ON THE PRIMARY CLINICAL RECORDS. [employer] provides no warranty or guarantee of the accuracy or completeness of information in this document.
--- NOTE | 2023-05-08 10:21 | PCM.CONS.GEN ---
Assessment & Plan Assessment/Plan (1) Surgical wound infection: PLAN: OR 04/17/[address] Dominguez for L4-S1 fusion for spinal stenosis, developed some redness and drainage 1-2 weeks after surgery. Taken back to OR 05/08/23 for I&D of superficial abscess. Surg cx pending. No fever. Will cover for nosocomial organisms empirically with vanc/cefepime for now, plan on home with short course po abx depending on further cx data. Will follow, thank you (2) Lumbar stenosis: HPI Consult Data Date of Consult: 05/08/23 HPI Narrative Reason for Consultation: wound infection HPI Narrative: LIZY STOREY, is a 63 F who went to OR 04/17/[address] Dominguez for L4-S1 fusion for spinal stenosis, developed some redness and drainage 1-2 weeks after surgery. No pain, no fever, no recent abx. Had some constipation, helped by stool softeners. Taken back to OR this AM for I&D of superficial abscess. Feeling ok this AM. Full ROS performed and neg except as noted above. [facility] Medical History Back pain History of edema History of pain when walking Hx of corrected cleft lip and palate Hypertension Injury of back Leg cramps Non-smoker Post-menopausal Shortness of breath on exertion Walker as ambulation aid Wears glasses Home Medications hydrocodone-acetaminophen 5-325mg 5mg-325mg 1 tab PO Q4H PRN PRN Pain 7 days #90 tabs 04/17/23 [Rx Last Taken Unknown] bisacodyl 5 mg tablet,delayed release (Alophen (bisacodyl)) 5 mg PO DAILY 04/28/23 [History Last Taken Unknown] lisinopril 20 mg tablet 20 mg PO DAILY HTN 04/28/23 [History Last Taken 05/08/23 05:30] Allergy/AdvReac Type Severity Reaction Status Date / Time No Known Allergies Allergy Verified 05/07/23 09:11 Surgical History History of Hx of total hip arthroplasty Previous back surgery Social History Smoking Status: Never smoker Physical Exam Const alert, oriented x3 and no apparent distress General Appearance: cooperative HEENT normocephalic and head/scalp atraumatic Neck supple and No nodes Resp normal air movement and clear to auscultation bilaterally Cardio regular rate and regular rhythm GI soft to palpation, non-tender and non-distended Extremity General Extremity: Negative for edema Skin Skin Narrative: surg dressing in place Neuro CN's II-XII intact bilaterally Lab / Micro Data Attestation: I reviewed the patient's lab results.
[2023-05-08] MEDS: Cefepime HCl 2 GM in 0.9% Normal Saline (100mL MB+) 100 ML IV (11:24)
[2023-05-08] MEDS: Vancomycin HCl 2,000 MG in 0.9% Normal Saline (500mL Bag) 500 ML 250 MG IV (12:13)
[2023-05-08 12:42] LABS: Anion Gap 3 (5-15); BUN 18 mg/dL (7-18); BUN/Creat Ratio 23.8 RATIO (10-20); Calcium,Total 8.9 mg/dL (8.5-10.1); Chloride 106 mmol/L (98-107); Creatinine, Serum 0.76 mg/dL (0.55-1.02); EST Glomerular Filtration Rate 82 mL/min (>60); Est Glom Filt Rate - Afr Amer 99 mL/min (>60); Estimated Creatinine Clearance 77.77 ml/min; Glucose 116 mg/dL (74-106); Potassium 4.6 mmol/L (3.5-5.1); Sodium Level 137 mmol/L (136-145)
--- NOTE | 2023-05-08 14:04 | PCM.RX.CS ---
Consult Antibiotic Management Pharmacy has been consulted to manage selected antibiotic: Vancomycin Type of Intervention Type of Consult: Suspected Infection Suspected Infection: Skin/Soft tissue Labs Labs: Sodium 137 mmol/L (136-145) 05/08/23 12:19 Potassium 4.6 mmol/L (3.5-5.1) 05/08/23 12:19 Chloride 106 mmol/L (98-107) 05/08/23 12:19 Carbon Dioxide 28.0 mmol/L (21.0-32.0) 05/08/23 12:19 Anion Gap 3 (5-15) L 05/08/23 12:19 BUN 18 mg/dL (7-18) 05/08/23 12:19 Creatinine 0.76 mg/dL (0.55-1.02) 05/08/23 12:19 Est GFR (MDRD) Af Amer 99 mL/min (>60) 05/08/23 12:19 Est GFR (MDRD) Non-Af 82 mL/min (>60) 05/08/23 12:19 BUN/Creatinine Ratio 23.8 RATIO (10-20) H 05/08/23 12:19 Glucose 116 mg/dL (74-106) H 05/08/23 12:19 Goal Trough Goal Trough: 15-20 mcg/mL Pharmacy Plan for Drug Dosing Pharmacy Plan for Drug Dosing: IV VANCOMYCIN Consulting Physician: Dr. Anand Indication: Spinal Abscess/ SSTI Goal Trough: 15-20 SrCr: 0.76 CrCl: 78 mL/min Comments: Patient had loading dose of 2000mg ordered and administered 05/08 @1213 Vancomycin Dose: Vancomycin 1250mg IV Q12hr to start 05/09/23 @0000 Pending Level: 05/09/23 @2330, prior to 4th total dose per protocol Pharmacy Service will continue to monitor and adjust dosing as required.
[2023-05-08] MEDS: Acetaminophen 500 MG Tablet 1000 MG PO (14:12)
--- NOTE | 2023-05-08 15:42 | WOUNDNOTE ---
Pt switched over to the home VAC. reviewed alarms, how to return VAC, etc. with patient. pt denies questions or concerns. proof of delivery signed and faxed to [facility]. home health to change the VAC dressing Friday. Pt aware.
== END 2023-05-08 16:52 | disposition home health service (06) ==
LOC: SDC 09:36 → MS3 09:36
PROVIDERS: Internal Medicine Infectious Disease; Admitting Provider Orthopaedic Surgery; Referring Provider Orthopaedic Surgery; Visit Provider Orthopaedic Surgery
PROC: (CPT 20102; principal; 2023-05-08 07:15)
DX: T81.49XA Infection following a procedure, other surgical site, initial encounter (principal); I10 Essential (primary) hypertension; Y83.8 Other surgical procedures as the cause of abnormal reaction of the patient, or of later complication, without mention of misadventure at the time of the procedure; Z98.1 Arthrodesis status; Z79.899 Other long term (current) drug therapy
CPT/HCPCS: 20102; 00300; 36415; 80048; 87070; 87075; 87077; 87186; 87205; 96361; 96365; 96366; 96367; 99221; J7040; J7120; G0378; J2405

== ENCOUNTER 2023-06-09 09:45 | Outpatient (RCR) | payer OTHER, SELFPAY ==
[2023-05-19 08:53] VITALS: BP 128/57; PULSE 107; RESP 18; TEMP 35.9; BMI 37.9
--- NOTE | 2023-05-19 12:17 | PCM.WC.HP ---
History of Present Illness Date of Service: 05/19/23 Chief Complaint: Lumbar wound after I&D History of Wound: Patient is a 63 year old female who underwent L4-5, L5-S1 posterior lumbar interbody fusion, decompression, posterior spinal fusion with instrumentation, use of allograft on 04/17/[address] Dominguez for lumbar spinal stenosis. She developed some redness and drainage a couple weeks after surgery. She was taken back to the OR on 05/08/23 for I&D and application of a wound VAC by Dr. Dominguez. Two sets of wound cultures were obtained during surgery. The first set was positive for Escherichia coli, Enterococcus faecalis and Bacteroides fragilis. The second set of operative cultures were positive for MRSA, Enterococcus faecalis, Anaerobic cocci, and Bacteroides fragilis. ID was consulted and treated with Vanc/Cefepime IV in the hospital, she was discharged on Doxycycline and Augmentin. She has [facility] home health to help with her wound VAC dressing changes 3 times per week. She denies any complaints of fever, chills, nausea or vomiting. She comes in today for further evaluation and management of her wound VAC. Progress of Wound: Mid lower back wound is beefy pink. There is undermining at 12 and 6 o'clock Nia wound is clear. [facility] Medical History (Updated 05/21/23 @ 14:44 by Anu Garcia POTTERY DECORATOR, POTTERY DECORATOR-C) Back pain History of edema History of pain when walking Hx of corrected cleft lip and palate Hypertension Injury of back Leg cramps Non-smoker Post-menopausal Shortness of breath on exertion Walker as ambulation aid Wears glasses Home Medications hydrocodone-acetaminophen 5-325mg 5mg-325mg 1 tab PO Q4H PRN PRN Pain 7 days #90 tabs 04/17/23 [Rx Last Taken Unknown] bisacodyl 5 mg tablet,delayed release (Alophen (bisacodyl)) 5 mg PO DAILY 04/28/23 [History Last Taken Unknown] lisinopril 20 mg tablet 20 mg PO DAILY HTN 04/28/23 [History Last Taken 05/08/23 05:30] Allergy/AdvReac Type Severity Reaction Status Date / Time No Known Allergies Allergy Verified 05/19/23 09:12 Family History (Updated 05/21/23 @ 13:55 by Anu Garcia POTTERY DECORATOR, POTTERY DECORATOR-C) Father Heart disease Surgical History (Updated 05/21/23 @ 14:44 by Anu Garcia NP, POTTERY DECORATOR-C) History of History of incision and drainage Hx of total hip arthroplasty Previous back surgery Social History (Updated 05/21/23 @ 13:56 by Anu Garcia NP, POTTERY DECORATOR-C) household members: spouse number of children: 2 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 Smoking Status: Never smoker alcohol intake: never substance use type: does not use what type of physical activity do you participate in: none ROS Constitutional Constitutional: Denies chills or fever(s) Eyes Eyes: Reports requires corrective lenses ENT HEENT: Reports systems reviewed and no addt'l complaints, except as documented Cardiovascular Cardiovascular: Denies chest pain or dyspnea Respiratory/Chest Respiratory/Chest: Denies cough or dyspnea Gastrointestinal Gastrointestinal: Reports systems reviewed and no addt'l complaints, except as documented Genitourinary Genitourinary: Reports systems reviewed and no addt'l complaints, except as documented Musculoskeletal Musculoskeletal: Reports systems reviewed and no addt'l complaints, except as documented and back pain Integumentary Integumentary: Reports systems reviewed and no addt'l complaints, except as documented and skin ulcer Neurologic Neurologic: Reports systems reviewed and no addt'l complaints, except as documented Psychiatric Psychiatric: Reports none Endocrine Endocrinology: Reports none Vital Signs Vital Signs Vital Signs: 05/19/23 08:53 Temperature 96.7 F L Temperature Source Temporal Pulse Rate 107 H Respiratory Rate 18 Blood Pressure 128/57 H Blood Pressure Mean 80 Blood Pressure Source Monitor Weight Weight: 200 lb 14.792 oz Body Mass Index (BMI) 37.9 Physical Exam Const alert and oriented x3 General Appearance: cooperative HEENT normocephalic Head and Scalp: atraumatic Eyes General Eye: normal appearance of both eyes Lymph Lymphatic: no lymphedema noted Resp normal respiratory effort, normal air movement and clear to auscultation bilaterally Effort and Inspection: able to speak in complete sentences Cardio regular rate and regular rhythm GI soft to palpation and non-tender Extremity normal capillary refill Skin Wound Narrative: Lower middle back wound is beefy pink with some granulation tissue present. Tissue covering spine. There is undermining at 12 and 6 o'clock. Nia wound is clear. Neuro oriented x3 and CN's II-XII intact bilaterally Psych mental status grossly normal and thought process normal Debridement Note Debridement Note No debridement was completed: No debridement was completed today Post-Debridement Measurements and Additional Note: Post-Debridement Measurements/Treatment WC - Nurse 1 - General Ulcer Assessment Start: 05/19/23 08:53 Freq: Status: Active Protocol: RAJEEV Activity Type Activity Date Activity User E-sign Co-sign Detail Recorded Client Recorded Date Recorded By Document 05/19/23 08:53 DL Desktop 05/19/23 09:09 DL 05/19/23 08:53 WC - Today's Visit Information Type of service Initial Visit Arrival Mode Walker Transfer Assistance None Patient Identification Verified (Name & Yes ) Patient Requires Transmission-Based No Precautions Height and Weight Height 5 ft 1 in Weight 200 lb 14.792 oz Weight in Pounds 200.9 lbs Body Mass Index (BMI) 37.9 BMI Classification Obese BSA - Silvio 1.89 Vital Signs Temperature (97.8 F-99.1 F) 96.7 F L Temperature Source Temporal Pulse Rate (60-100) 107 H Pulse Location Monitor Respiratory Rate (12-18) 18 Respiratory rate source Observation Blood Pressure (90/60-120/80) 128/57 H Blood Pressure Mean 80 Source Monitor Pain Scale: 0-10 Numeric Is Patient Pain Free? Yes Communication Assessment Able to Read Yes Able to Write No Right Hearing Abillity Normal Left Hearing Abillity Normal Visual Assistive Devices Glasses Teaching Assessment Preferences Verbal,Written Barriers to Learning None Readiness To Learn Good Willingness to Engage in Self Management Med Activies Readiness to Engage in Self Management Med Activities Anxiety Level Calm Cooperation Cooperative Perception Coherent Interest in Health Problem Asks Questions Education Importance Acknowledges Need Does Patient Smoke tobacco or other No substances Smoking Status Never smoker Is Patient Diabetic No Functional Assessment Recent Decline in Ability to Perform Denies Any Declines Culture/Jewish/Management Psychologist Cultural/Jewish Needs that may affect No Treatment Plan Would you allow our hospital title 1 tutor to No meet you for the purpose of spiritual/ emotional support? Management Psychologist to contact place of spiritism No Teaching: Wound Center Dressing Your Wound -Person Taught Patient *Welcome to the Wound Center -Person Taught Patient DESTINEE - Nurse 1 - General Ulcer Measurement Start: 05/19/23 08:53 Freq: Status: Active Protocol: Activity Type Activity Date Activity User E-sign Co-sign Detail Recorded Client Recorded Date Recorded By Document 05/19/23 08:53 DL Desktop 02/05/24 09:09 DL 05/19/23 08:53 Wound Center Nurse 1 #1 Sacral -Current Size (cm) - Length 11 -Current Size (cm) - Width 5 -Current Size (cm) - Depth 5.5 -Total Square Cm 55 -Photo Taken Yes -Tunneling Position (O'clock) 12 -Tunneling Distance (cm) 4 -Exudate Amt Medium -Exudate Type Serosanguineous -Wound Margin Distinct, Outline Attached -Granulation Amt Large (67-100%) -Granulation Quality Red -Necrosis Amt None Present (0 %) -Structure Exposed Fascia -Texture (Nia-wound Skin Appearance) Scarring -Moisture (Nia-wound Skin Appearance) No Abnormality -Color (Nia-wound Skin Appearance) No Abnormality -Temperature (Nia-wound Skin No Abnormality Appearance) (Pt Warm) -Tenderness on Palpation (Nia-wound No Skin Appearance) -Ulcer Cleansing Soap and Water -Foul Odor after Cleansing No -Anesthetic Used 4% Lidocaine Solution WC - Nurse 2 - General Ulcer CM Notes Start: 05/19/23 08:53 Freq: Status: Active Protocol: Activity Type Activity Date Activity User E-sign Co-sign Detail Recorded Client Recorded Date Recorded By Document 05/19/23 09:29 Laptop 05/19/23 09:32 05/19/23 09:29 Wound Center Nurse 2 -Correct Patient No -Correct Side, Site, Position No -Correct Procedure No -Procedure Performed No -Post Debridement (cm) - Length 11.7 -Post Debridement (cm) - Width 5.5 -Post Debridement (cm) - Depth 5.0 -Total Square (Post) (cm) 64.35 -Area of Debridement (cm) - Length 11.7 -Area of Debridement (cm) - Width 5.5 -Total Square (Area) (cm) 64.35 -Undermining/Tunneling Yes -Undermining/Tunneling Starts (O'clock 12 ) -Maximum Distance (cm) 3.8 -Undermining/Tunneling Starts #2 (O' 6 clock) -Maximum Distance #2 (cm) 2.3 -Wound/Ulcer Outcome Not Healed -Treatment Response Procedure Tolerated Well -Offloading No -Debridement - Muscle / Fascia, 1st No 20sq cm Pain Scale: 0-10 Numeric Is Patient Pain Free? Yes WC - Nurse 3 - General Ulcer D/C NN Start: 05/19/23 08:53 Freq: Status: Active Protocol: Activity Type Activity Date Activity User E-sign Co-sign Detail Recorded Client Recorded Date Recorded By Document 05/19/23 09:44 [facility] Desktop 05/19/23 09:45 [facility] 05/19/23 09:44 Wound Care Center Nurse 3 #1 Sacral -Ulcer Cleansing Soap and Water -Foul Odor after Cleansing No -Negative Pressure Wound Therapy Continue -Setting (mmHg) 150 -Negative Pressure is Continuous -Other Dressing no debridement today -NPWT Application Charge NPWT > 50 sq cm ($) Treatment Response Procedure Tolerated Well Pain Scale: 0-10 Numeric Is Patient Pain Free? Yes WC - Visit Discharge Discharge Condition Stable Ambulatory Status Ambulatory, Walker Transportation Private Auto Accompanied by Facility Type Home Health Charges/Coding Visit Charges Office Visits / Consults: [id number] OV L4 Est 30min Assessment/Plan Assessment/Plan (1) Open wound of lumbar region: CODE(S): S31.000A - Unspecified open wound of lower back and pelvis without penetration into retroperitoneum, initial encounter (2) Postoperative infection: CODE(S): T81.40XA - Infection following a procedure, unspecified, initial encounter (3) Previous back surgery: CODE(S): Z98.890 - Other specified postprocedural states (4) History of incision and drainage: CODE(S): Z98.890 - Other specified postprocedural states PLAN: Plan Patient evaluated at the wound healing center today. Wound care - Wound VAC at 150 mmHg to be changed 3 times per week. At the time of the dressing change, the wound is to be cleansed with antibacterial soap and rinsed with water. She has [facility] home health to assist with the dressing changes. Two sets of wound cultures were obtained during surgery on 05/08/23. The first set was of the purulent drainage and was positive for Escherichia coli, Enterococcus faecalis and Bacteroides fragilis. The second set of operative cultures were positive for MRSA, Enterococcus faecalis, Anaerobic cocci, and Bacteroides fragilis. Infectious disease was consulted while she was admitted. She was sent home on Doxycycline and Augmentin. Follow up one week. Greater than 35 minutes was spent assessing patient, establishing plan of care, reviewing other documentation.
[2023-05-27 15:11] VITALS: BP 144/82; PULSE 100; RESP 18; TEMP 36.3; BMI 37.9
--- NOTE | 2023-05-27 15:25 | PCM.WC.PN ---
History of Present Illness Date of Service: 05/27/23 Chief Complaint: Lumbar wound after I&D History of Wound: Patient is a 63 year old female who underwent L4-5, L5-S1 posterior lumbar interbody fusion, decompression, posterior spinal fusion with instrumentation, use of allograft on 04/17/[address] Dominguez for lumbar spinal stenosis. She developed some redness and drainage a couple weeks after surgery. She was taken back to the OR on 05/08/23 for I&D and application of a wound VAC by Dr. Dominguez. Two sets of wound cultures were obtained during surgery. The first set was positive for Escherichia coli, Enterococcus faecalis and Bacteroides fragilis. The second set of operative cultures were positive for MRSA, Enterococcus faecalis, Anaerobic cocci, and Bacteroides fragilis. ID was consulted and treated with Vanc/Cefepime IV in the hospital, she was discharged on Doxycycline and Augmentin. She has [facility] home health to help with her wound VAC dressing changes 3 times per week. She denies any complaints of fever, chills, nausea or vomiting. Her appetite is ok. Progress of Wound: Mid lower back wound shows good granulation tissue. No bone seen. No hardware seen. Objective Data Objective Data Vital Signs: Vital Signs Temp Pulse Resp BP 97.3 F L 100 18 144/82 H 05/27/23 15:11 05/27/23 15:11 05/27/23 15:11 05/27/23 15:11 Weight: 200 lb 14.792 oz Body Mass Index (BMI) 37.9 Lab / Micro Data Attestation: I reviewed the patient's lab results. Charges/Coding Procedures Integumentary 111xxx-113xx: 37175 Jonna musc/fascia 20 sq cm/< (ICD-10 - S31.000A, T81.40xA, Z98.890) Add On Codes: 84933 Jonna musc/fascia add-on (x 2 Units ) (ICD-10 - S31.000A, T81.40xA, Z98.890 ) Debridement Note Debridement Note Post-Debridement Measurements and Additional Note: Post-Debridement Measurements/Treatment - Nurse 1 - General Ulcer Assessment Start: 05/19/23 08:53 Freq: Status: Active Protocol: RAJEEV Activity Type Activity Date Activity User E-sign Co-sign Detail Recorded Client Recorded Date Recorded By Document 05/19/23 08:53 DL Desktop 05/19/23 09:09 DL Document 05/27/23 15:11 RB Desktop 05/27/23 15:14 RB 05/19/23 05/27/23 08:53 15:11 WC - Today's Visit Information Type of service Initial Visit Follow-up Visit (Physician/DOMINATRIX ) Arrival Mode Walker Ambulatory Transfer Assistance None None Patient Identification Verified (Name & Yes Yes ) Patient Requires Transmission-Based No No Precautions Height and Weight Height 5 ft 1 in Weight 200 lb 14.792 oz Weight in Pounds 200.9 lbs Body Mass Index (BMI) 37.9 37.9 BMI Classification Obese Obese BSA - Silvio 1.89 Vital Signs Temperature (97.8 F-99.1 F) 96.7 F L 97.3 F L Temperature Source Temporal Temporal Pulse Rate (60-100) 107 H 100 Pulse Location Monitor Monitor Respiratory Rate (12-18) 18 18 Respiratory rate source Observation Observation Blood Pressure (90/60-120/80) 128/57 H 144/82 H Blood Pressure Mean (mm Hg) 80 102 Source Monitor Monitor Position Semi-Fowlers Blood Pressure Location Left Arm History Since Last Visit- (Skip if this is Patient's initial visit) Have you changed medications since your No last visit? Any new allergies or adverse reactions No Had a fall/change in ADL's that may No increase risk of falls Signs or symptoms of abuse and/or No neglect since last visit Have you been in the hospital since your No last visit? Has dressing in place as prescribed Yes Has compression in place as prescribed No Has offloadiing in place as prescribed Yes Experienced any changes in pain level or No management Pain Scale: 0-10 Numeric Is Patient Pain Free? Yes Yes Communication Assessment Able to Read Yes Able to Write No Right Hearing Abillity Normal Left Hearing Abillity Normal Visual Assistive Devices Glasses Teaching Assessment Preferences Verbal,Written Barriers to Learning None Readiness To Learn Good Willingness to Engage in Self Management Med Activies Readiness to Engage in Self Management Med Activities Anxiety Level Calm Cooperation Cooperative Perception Coherent Interest in Health Problem Asks Questions Education Importance Acknowledges Need Does Patient Smoke tobacco or other No substances Smoking Status Never smoker Is Patient Diabetic No Functional Assessment Recent Decline in Ability to Perform Denies Any Declines Culture/Taoism/Planning Management It Specialist Cultural/Taoism Needs that may affect No Treatment Plan Would you allow our hospital banquet coordinator to No meet you for the purpose of spiritual/ emotional support? Planning Management It Specialist to contact place of adventism No Teaching: Wound Center Dressing Your Wound -Person Taught Patient *Welcome to the Wound Center -Person Taught Patient WC - Nurse 1 - General Ulcer Measurement Start: 05/19/23 08:53 Freq: Status: Active Protocol: Activity Type Activity Date Activity User E-sign Co-sign Detail Recorded Client Recorded Date Recorded By Document 05/19/23 08:53 DL Desktop 05/19/23 09:09 DL Document 05/27/23 15:11 RB Desktop 05/27/23 15:14 RB 05/19/23 05/27/23 08:53 15:11 Wound Center Nurse 1 #1 Lumbo-Sacral -Combined with other wound No -Current Size (cm) - Length 11 10.2 -Current Size (cm) - Width 5 5.5 -Current Size (cm) - Depth 5.5 5.2 -Total Square Cm 55 56.10 -Photo Taken Yes Yes -Tunneling No -Tunneling Position (O'clock) 12 -Tunneling Distance (cm) 4 -Undermining/Tunneling Yes -Undermining/Tunneling Starts (O'clock 12 ) -Undermining/Tunneling Ends (O'clock) 12 -Maximum Distance (cm) 3.5 -Undermining/Tunneling Starts #2 (O' 6 clock) -Undermining/Tunneling Ends #2 (O' 6 clock) -Maximum Distance #2 (cm) 3.2 -Exudate Amt Medium Large -Exudate Type Serosanguineous Serosanguineous -Wound Margin Distinct, Distinct, Outline Outline Attached Attached -Granulation Amt Large (67-100%) Medium (34-66%) -Granulation Quality Red Ezel -Slough/Fibrin Yes -Necrosis Amt None Present (0 Medium (34-66%) %) -Necrotic Tissue Type Adherent Slough -Structure Exposed Fascia N/A -Texture (Nia-wound Skin Appearance) Scarring Assessed, Scarring -Moisture (Nia-wound Skin Appearance) No Abnormality Assessed -Color (Nia-wound Skin Appearance) No Abnormality Assessed -Temperature (Nia-wound Skin No Abnormality No Abnormality Appearance) (Pt Warm) (Pt Warm) -Tenderness on Palpation (Nia-wound No No Skin Appearance) -Ulcer Cleansing Soap and Water Wound Cleanser -Foul Odor after Cleansing No No -Anesthetic Used 4% Lidocaine 4% Lidocaine Solution Solution DESTINEE - Nurse 2 - General Ulcer CM Notes Start: 05/19/23 08:53 Freq: Status: Active Protocol: Activity Type Activity Date Activity User E-sign Co-sign Detail Recorded Client Recorded Date Recorded By Document 05/19/23 09:29 Laptop 05/19/23 09:32 Document 05/27/23 15:17 Laptop 05/27/23 15:22 05/19/23 05/27/23 09:29 15:17 Wound Center Nurse 2 #1 Lumbo-Sacral -Time 15:18 -Correct Patient No Yes -Correct Side, Site, Position No Yes -Correct Procedure No Yes -Procedure Performed No Yes -Type of Procedure Debridement -Clinical Debridement Muscle / Fascia -Tissue Removed Muscle,Fascia -Post Debridement (cm) - Length 11.7 10.3 -Post Debridement (cm) - Width 5.5 5.5 -Post Debridement (cm) - Depth 5.0 5.2 -Total Square (Post) (cm) 64.35 56.65 -Area of Debridement (cm) - Length 11.7 10.3 -Area of Debridement (cm) - Width 5.5 5.5 -Total Square (Area) (cm) 64.35 56.65 -Tunneling No -Undermining/Tunneling Yes Yes -Undermining/Tunneling Starts (O'clock 12 12 ) -Maximum Distance (cm) 3.8 3.5 -Undermining/Tunneling Starts #2 (O' 6 6 clock) -Maximum Distance #2 (cm) 2.3 3.2 -Circular Undermining No -Wound/Ulcer Outcome Not Healed Not Healed -Ulcer Cleansing Rinsed/ Irrigated with Saline -Foul Odor after Cleansing No -Bioengineered Tissue No -Bleeding Controlled with Pressure -Treatment Response Procedure Procedure Tolerated Well Tolerated Well -Offloading No No -Debridement - Muscle / Fascia, 1st No Yes 20sq cm -Debridement, Muscle/Fascia, ea addt'l 2 20sq cm or part thereof Pain Scale: 0-10 Numeric Is Patient Pain Free? Yes Yes DESTINEE - Nurse 3 - General Ulcer D/C NN Start: 05/19/23 08:53 Freq: Status: Active Protocol: Activity Type Activity Date Activity User E-sign Co-sign Detail Recorded Client Recorded Date Recorded By Document 05/19/23 09:44 [facility] Desktop 05/19/23 09:45 [facility] 05/19/23 09:44 Wound Care Center Nurse 3 #1 Sacral -Ulcer Cleansing Soap and Water -Foul Odor after Cleansing No -Negative Pressure Wound Therapy Continue -Setting (mmHg) 150 -Negative Pressure is Continuous -Other Dressing no debridement today -NPWT Application Charge NPWT > 50 sq cm ($) Treatment Response Procedure Tolerated Well Pain Scale: 0-10 Numeric Is Patient Pain Free? Yes WC - Visit Discharge Discharge Condition Stable Ambulatory Status Ambulatory, Walker Transportation Private Auto Accompanied by Facility Type Home Health Additional Wound Wound debrided: #1 Lumbo-sacral area. Laterality: Not Applicable Wound Grade/Stage: 3. Type of Debridement: Excisional debridement Anesthesia Used: 5% Lidocaine Gel Depth: Down to and including healthy tissue, in the subcutaneous layer and to muscle (bone was not seen. Hardware was not seen.) Percentage of wound debrided: 100 Instrument Used: 5mm curette Tissue Removed: subcutaneous tissue and muscle. Severity: Fat Layer Exposed (muscle is exposed.) Amount of bleeding with debridement: Mild Bleeding Controlled with: Pressure and Compression and gauze Patient tolerated procedure: Patient tolerated procedure well Assessment/Plan Assessment/Plan (1) Open wound of lumbar region: CODE(S): S31.000A - Unspecified open wound of lower back and pelvis without penetration into retroperitoneum, initial encounter (2) Postoperative infection: CODE(S): T81.40XA - Infection following a procedure, unspecified, initial encounter (3) Previous back surgery: CODE(S): Z98.890 - Other specified postprocedural states (4) History of incision and drainage: CODE(S): Z98.890 - Other specified postprocedural states PLAN: Plan Wound shows good granulation tissue. No bone seen. No hardware seen. Wound care - Wound VAC at 150 mmHg to be changed 3 times per week. At the time of the dressing change, the wound is to be cleansed with antibacterial soap and rinsed with water. Two sets of wound cultures were obtained during surgery on 05/08/23. The first set was of the purulent drainage and was positive for Escherichia coli, Enterococcus faecalis and Bacteroides fragilis. The second set of operative cultures were positive for MRSA, Enterococcus faecalis, Anaerobic cocci, and Bacteroides fragilis. Infectious disease was consulted while she was admitted. She was sent home on Doxycycline and Augmentin. Encourage nutritional supplementation with protein to help the healing process. Follow up one week.
[2023-06-02 09:50] VITALS: BP 152/75; PULSE 105; RESP 16; TEMP 36.8; BMI 37.9
--- NOTE | 2023-06-02 11:14 | PN.PCM_ITS ---
History of Present Illness Date of Service: 06/02/23 Chief Complaint: Lumbar wound after I&D History of Wound: Patient is a 63 year old female who underwent L4-5, L5-S1 posterior lumbar interbody fusion, decompression, posterior spinal fusion with instrumentation, use of allograft on 04/17/[address] Dominguez for lumbar spinal stenosis. She developed some redness and drainage a couple weeks after surgery. She was taken back to the OR on 05/08/23 for I&D and application of a wound VAC by Dr. Dominguez. Two sets of wound cultures were obtained during surgery. The first set was positive for Escherichia coli, Enterococcus faecalis and Bacteroides fragilis. The second set of operative cultures were positive for MRSA, Enterococcus faecalis, Anaerobic cocci, and Bacteroides fragilis. ID was consulted and treated with Vanc/Cefepime IV in the hospital, she was discharged on Doxycycline and Augmentin. She has [facility] home health to help with her wound VAC dressing changes 3 times per week. She denies any complaints of fever, chills, nausea or vomiting. Her appetite is ok. Progress of Wound: Mid lower back wound shows good granulation tissue. No bone seen. No hardware seen. Wound opening is smaller, but the tunneling at 12 o'clock is larger. Objective Data Objective Data Vital Signs: Vital Signs Temp Pulse Resp BP O2 Del Method 98.2 F 105 H 16 152/75 H Room Air 06/02/23 09:50 06/02/23 09:50 06/02/23 09:50 06/02/23 09:50 06/02/23 09:50 Oxygen Delivery Method Room Air Weight: 200 lb 14.792 oz Body Mass Index (BMI) 37.9 Charges/Coding Procedures Integumentary 111xxx-113xx: 99433 Jonna musc/fascia 20 sq cm/< (ICD-10 - S31.000A, T81.40xA, Z98.890) Add On Codes: 83741 Jonna musc/fascia add-on (x 2 Units ) (ICD-10 - S31.000A, T81.40xA, Z98.890 ) Debridement Note Debridement Note Wound debrided: Midline lower back wound Laterality: Not Applicable Wound Grade/Stage: Stage 3 Type of Debridement: Excisional debridement Anesthesia Used: 5% Lidocaine Gel Depth: Down to and including healthy tissue and in the subcutaneous layer Percentage of wound debrided: 100 Instrument Used: 7mm curette Tissue Removed: Non viable tissue and slough Severity: Fat Layer Exposed Bleeding Controlled with: Compression and gauze Patient tolerated procedure: Patient tolerated procedure well Post-Debridement Measurements and Additional Note: Post-Debridement Measurements/Treatment WC - Nurse 1 - General Ulcer Assessment Start: 05/19/23 08:53 Freq: Status: Active Protocol: DESTINEE.MYNOR Activity Type Activity Date Activity User E-sign Co-sign Detail Recorded Client Recorded Date Recorded By Document 05/19/23 08:53 DL Desktop 05/19/23 09:09 DL Document 05/27/23 15:11 RB Desktop 05/27/23 15:14 RB Document 06/02/23 09:50 KW Desktop 06/02/23 09:54 KW 05/19/23 05/27/23 06/02/23 08:53 15:11 09:50 WC - Today's Visit Information Type of service Initial Visit Follow-up Visit Follow-up Visit (Physician/FLOTATION TENDER HELPER (Physician/FLOTATION TENDER HELPER ) ) Arrival Mode Walker Ambulatory Ambulatory, Walker Transfer Assistance None None Accompanied by Patient Identification Verified (Name & Yes Yes Yes ) Patient Requires Transmission-Based No No Precautions Height and Weight Height 5 ft 1 in Weight 200 lb 14.792 oz Weight in Pounds 200.9 lbs Body Mass Index (BMI) 37.9 37.9 37.9 BMI Classification Obese Obese Obese BSA - Silvio 1.89 Vital Signs Temperature (97.8 F-99.1 F) 96.7 F L 97.3 F L 98.2 F Temperature Source Temporal Temporal Temporal Pulse Rate (60-100) 107 H 100 105 H Pulse Location Monitor Monitor Monitor Respiratory Rate (12-18) 18 18 16 Respiratory rate source Observation Observation Observation Oxygen Delivery Method Room Air Blood Pressure (90/60-120/80) 128/57 H 144/82 H 152/75 H Blood Pressure Mean (mm Hg) 80 102 100 Source Monitor Monitor Monitor Position Semi-Fowlers Sitting Blood Pressure Location Left Arm Left Arm History Since Last Visit- (Skip if this is Patient's initial visit) Have you changed medications since your No No last visit? Any new allergies or adverse reactions No No Had a fall/change in ADL's that may No No increase risk of falls Signs or symptoms of abuse and/or No No neglect since last visit Have you been in the hospital since your No No last visit? Has dressing in place as prescribed Yes Yes Has compression in place as prescribed No N/A Has offloadiing in place as prescribed Yes N/A Experienced any changes in pain level or No No management Left Footwear Regular Shoe Right Footwear Regular Shoe Pain Scale: 0-10 Numeric Is Patient Pain Free? Yes Yes Yes Communication Assessment Able to Read Yes Able to Write No Right Hearing Abillity Normal Left Hearing Abillity Normal Visual Assistive Devices Glasses Teaching Assessment Preferences Verbal,Written Barriers to Learning None Readiness To Learn Good Willingness to Engage in Self Management Med Activies Readiness to Engage in Self Management Med Activities Anxiety Level Calm Cooperation Cooperative Perception Coherent Interest in Health Problem Asks Questions Education Importance Acknowledges Need Does Patient Smoke tobacco or other No substances Smoking Status Never smoker Is Patient Diabetic No Functional Assessment Recent Decline in Ability to Perform Denies Any Declines Culture/Mu-Ism/Reservation Clerk Cultural/Mu-Ism Needs that may affect No Treatment Plan Would you allow our hospital admissions nurse to No meet you for the purpose of spiritual/ emotional support? Reservation Clerk to contact place of baptism No Teaching: Wound Center Dressing Your Wound -Person Taught Patient *Welcome to the Wound Center -Person Taught Patient WC - Nurse 1 - General Ulcer Measurement Start: 05/19/23 08:53 Freq: Status: Active Protocol: Activity Type Activity Date Activity User E-sign Co-sign Detail Recorded Client Recorded Date Recorded By Document 05/19/23 08:53 DL Desktop 05/19/23 09:09 DL Document 05/27/23 15:11 RB Desktop 05/27/23 15:14 RB Document 06/02/23 09:50 KW Desktop 06/02/23 09:54 KW 05/19/23 05/27/23 06/02/23 08:53 15:11 09:50 Wound Center Nurse 1 #1 Sacral -Combined with other wound No -Current Size (cm) - Length 11 10.2 9.5 -Current Size (cm) - Width 5 5.5 5.2 -Current Size (cm) - Depth 5.5 5.2 3.6 -Total Square Cm 55 56.10 49.40 -Photo Taken Yes Yes -Tunneling No Yes -Tunneling Position (O'clock) 12 12 -Tunneling Distance (cm) 4 3.7 -Undermining/Tunneling Yes Yes -Undermining/Tunneling Starts (O'clock 12 4 ) -Undermining/Tunneling Ends (O'clock) 12 6 -Maximum Distance (cm) 3.5 1.6 -Undermining/Tunneling Starts #2 (O' 6 clock) -Undermining/Tunneling Ends #2 (O' 6 clock) -Maximum Distance #2 (cm) 3.2 -Exudate Amt Medium Large Large -Exudate Type Serosanguineous Serosanguineous Serosanguineous -Wound Margin Distinct, Distinct, Distinct, Outline Outline Outline Attached Attached Attached -Granulation Amt Large (67-100%) Medium (34-66%) Large (67-100%) -Granulation Quality Red [place] Red -Slough/Fibrin Yes -Necrosis Amt None Present (0 Medium (34-66%) Small (1-33%) %) -Necrotic Tissue Type Adherent Slough Adherent Slough -Structure Exposed Fascia N/A -Texture (Nia-wound Skin Appearance) Scarring Assessed, Assessed Scarring -Moisture (Nia-wound Skin Appearance) No Abnormality Assessed Assessed -Color (Nia-wound Skin Appearance) No Abnormality Assessed Assessed -Temperature (Nia-wound Skin No Abnormality No Abnormality No Abnormality Appearance) (Pt Warm) (Pt Warm) (Pt Warm) -Tenderness on Palpation (Nia-wound No No Skin Appearance) -Ulcer Cleansing Soap and Water Wound Cleanser Soap and Water -Foul Odor after Cleansing No No No -Anesthetic Used 4% Lidocaine 4% Lidocaine 4% Lidocaine Solution Solution Solution WC - Nurse 2 - General Ulcer CM Notes Start: 05/19/23 08:53 Freq: Status: Active Protocol: Activity Type Activity Date Activity User E-sign Co-sign Detail Recorded Client Recorded Date Recorded By Document 05/19/23 09:29 Laptop 05/19/23 09:32 Document 05/27/23 15:17 Laptop 05/27/23 15:22 Document 06/02/23 10:13 Laptop 06/02/23 10:14 05/19/23 05/27/23 06/02/23 09:29 15:17 10:13 Wound Center Nurse 2 #1 Sacral -Time 15:18 10:13 -Correct Patient No Yes Yes -Correct Side, Site, Position No Yes Yes -Correct Procedure No Yes Yes -Procedure Performed No Yes Yes -Type of Procedure Debridement Debridement -Clinical Debridement Muscle / Fascia Muscle / Fascia -Tissue Removed Muscle,Fascia Muscle,Fascia -Post Debridement (cm) - Length 11.7 10.3 9.3 -Post Debridement (cm) - Width 5.5 5.5 5.6 -Post Debridement (cm) - Depth 5.0 5.2 3.8 -Total Square (Post) (cm) 64.35 56.65 52.08 -Area of Debridement (cm) - Length 11.7 10.3 9.3 -Area of Debridement (cm) - Width 5.5 5.5 5.6 -Total Square (Area) (cm) 64.35 56.65 52.08 -Tunneling No Yes -Tunneling Position (O'clock) 12 -Tunneling Distance (cm) 4.7 -Tunneling Position #2 (O'clock) 6 -Tunneling Distance #2 (cm) 2.4 -Undermining/Tunneling Yes Yes No -Undermining/Tunneling Starts (O'clock 12 12 ) -Maximum Distance (cm) 3.8 3.5 -Undermining/Tunneling Starts #2 (O' 6 6 clock) -Maximum Distance #2 (cm) 2.3 3.2 -Circular Undermining No No -Wound/Ulcer Outcome Not Healed Not Healed Not Healed -Ulcer Cleansing Rinsed/ Rinsed/ Irrigated with Irrigated with Saline Saline -Foul Odor after Cleansing No No -Bioengineered Tissue No No -Bleeding Controlled with Pressure Pressure -Treatment Response Procedure Procedure Procedure Tolerated Well Tolerated Well Tolerated Well -Offloading No No No -Debridement - Muscle / Fascia, 1st No Yes Yes 20sq cm -Debridement, Muscle/Fascia, ea addt'l 2 2 20sq cm or part thereof Pain Scale: 0-10 Numeric Is Patient Pain Free? Yes Yes Yes WC - Nurse 3 - General Ulcer D/C NN Start: 05/19/23 08:53 Freq: Status: Active Protocol: Activity Type Activity Date Activity User E-sign Co-sign Detail Recorded Client Recorded Date Recorded By Document 05/19/23 09:44 F Desktop 05/19/23 09:45 BMF Document 05/27/23 15:32 KW Desktop 05/27/23 15:32 KW Document 06/02/23 10:32 [facility] Desktop 06/02/23 10:33 [facility] 05/19/23 05/27/23 06/02/23 09:44 15:32 10:32 Wound Care Center Nurse 3 #1 Sacral -Ulcer Cleansing Soap and Water Rinsed/ Irrigated with Saline -Foul Odor after Cleansing No No -Negative Pressure Wound Therapy Continue Continue Continue -Setting (mmHg) 150 150 125 -Negative Pressure is Continuous Continuous Continuous -Other Dressing no debridement today -NPWT Application Charge NPWT > 50 sq cm NPWT & NPWT & ($) Debridement (nc Debridement (nc ) ) Treatment Response Procedure Procedure Tolerated Well Tolerated Well Pain Scale: 0-10 Numeric Is Patient Pain Free? Yes Yes Yes WC - Visit Discharge Discharge Condition Stable Stable Stable Ambulatory Status Ambulatory, Ambulatory Ambulatory, Walker Walker Transportation Private Auto Private Auto Private Auto Accompanied by Medication Reconcilliation completed & No provided to patient/care provider Clinical Summary of Care Provided Yes Facility Type Home Health Home Health Additional Wound Wound debrided: #1 Lumbo-sacral area. Laterality: Not Applicable Wound Grade/Stage: 3. Type of Debridement: Excisional debridement Anesthesia Used: 5% Lidocaine Gel Depth: Down to and including healthy tissue, in the subcutaneous layer and to muscle (bone was not seen. Hardware was not seen.) Percentage of wound debrided: 100 Instrument Used: 5mm curette Tissue Removed: subcutaneous tissue and muscle. Severity: Fat Layer Exposed (muscle is exposed.) Amount of bleeding with debridement: Mild Bleeding Controlled with: Pressure and Compression and gauze Patient tolerated procedure: Patient tolerated procedure well Assessment/Plan Assessment/Plan (1) Open wound of lumbar region: CODE(S): S31.000A - Unspecified open wound of lower back and pelvis without penetration into retroperitoneum, initial encounter (2) Postoperative infection: CODE(S): T81.40XA - Infection following a procedure, unspecified, initial encounter (3) Previous back surgery: CODE(S): Z98.890 - Other specified postprocedural states (4) History of incision and drainage: CODE(S): Z98.890 - Other specified postprocedural states PLAN: Plan Wound shows good granulation tissue. No bone seen. No hardware seen. Wound care - Wound VAC at 150 mmHg to be changed 3 times per week. At the time of the dressing change, the wound is to be cleansed with antibacterial soap and rinsed with water. With the tunnel at 12 o'clock larger, stressed importance of foam packing placed into the base of the tunnel to help decrease the depth of the tunnel. Two sets of wound cultures were obtained during surgery on 05/08/23. The first set was of the purulent drainage and was positive for Escherichia coli, Enterococcus faecalis and Bacteroides fragilis. The second set of operative cultures were positive for MRSA, Enterococcus faecalis, Anaerobic cocci, and Bacteroides fragilis. Infectious disease was consulted while she was admitted. She was sent home on Doxycycline and Augmentin. Encourage nutritional supplementation with protein to help the healing process. Follow up one week.
[2023-06-09 09:30] VITALS: BP 126/79; PULSE 105; RESP 18; TEMP 36.6; BMI 37.9
--- NOTE | 2023-06-09 10:00 | PN.PCM_ITS ---
History of Present Illness Date of Service: 06/09/23 Chief Complaint: Lumbar wound after I&D History of Wound: Patient is a 63 year old female who underwent L4-5, L5-S1 posterior lumbar interbody fusion, decompression, posterior spinal fusion with instrumentation, use of allograft on 04/17/[address] Dominguez for lumbar spinal stenosis. She developed some redness and drainage a couple weeks after surgery. She was taken back to the OR on 05/08/23 for I&D and application of a wound VAC by Dr. Dominguez. Two sets of wound cultures were obtained during surgery. The first set was positive for Escherichia coli, Enterococcus faecalis and Bacteroides fragilis. The second set of operative cultures were positive for MRSA, Enterococcus faecalis, Anaerobic cocci, and Bacteroides fragilis. ID was consulted and treated with Vanc/Cefepime IV in the hospital, she was discharged on Doxycycline and Augmentin. She has [facility] home health to help with her wound VAC dressing changes 3 times per week. She denies any complaints of fever, chills, nausea or vomiting. Her appetite is ok. Progress of Wound: Mid lower back wound shows good granulation tissue. No bone seen. No hardware seen. Wound opening is smaller, the 12 o'clock tunnel is smaller. The 6 o'clock tunnel is almost closed. Objective Data Objective Data Vital Signs: Vital Signs Temp Pulse Resp BP O2 Del Method 97.9 F 105 H 18 126/79 H Room Air 06/09/23 09:30 06/09/23 09:30 06/09/23 09:30 06/09/23 09:30 06/09/23 09:30 Oxygen Delivery Method Room Air Weight: 200 lb 14.792 oz Body Mass Index (BMI) 37.9 Charges/Coding Procedures Integumentary 111xxx-113xx: 29617 Jonna musc/fascia 20 sq cm/< (ICD-10 - S31.000A, T81.40xA, Z98.890) Add On Codes: 77505 Jonna musc/fascia add-on ((ICD-10 - S31.000A, T81.40xA, Z98.890)) Debridement Note Debridement Note Wound debrided: #1 Lumbo-sacral area Laterality: Not Applicable Wound Grade/Stage: Grade 3 Type of Debridement: Excisional debridement Anesthesia Used: 5% Lidocaine Gel Depth: Down to and including healthy tissue, in the subcutaneous layer and to muscle (Bone was not seen. Hardware was not seen.) Percentage of wound debrided: 100 Instrument Used: 7mm curette Tissue Removed: Subcutaneous tissue and muscle. Severity: Fat Layer Exposed (Muscle exposed.) Amount of bleeding with debridement: Mild Bleeding Controlled with: Compression and gauze Patient tolerated procedure: Patient tolerated procedure well Post-Debridement Measurements and Additional Note: Post-Debridement Measurements/Treatment - Nurse 1 - General Ulcer Assessment Start: 05/19/23 08:53 Freq: Status: Active Protocol: [facility] Activity Type Activity Date Activity User E-sign Co-sign Detail Recorded Client Recorded Date Recorded By Document 05/19/23 08:53 DL Desktop 05/19/23 09:09 DL Document 05/27/23 15:11 RB Desktop 05/27/23 15:14 RB Document 06/02/23 09:50 KW Desktop 06/02/23 09:54 KW Document 06/09/23 09:30 KW Desktop 06/09/23 09:35 KW 05/19/23 05/27/23 06/02/23 08:53 15:11 09:50 - Today's Visit Information Type of service Initial Visit Follow-up Visit Follow-up Visit (Physician/HAND GLOVE CLEANER (Physician/HAND GLOVE CLEANER ) ) Arrival Mode Walker Ambulatory Ambulatory, Walker Transfer Assistance None None Accompanied by Patient Identification Verified (Name & Yes Yes Yes ) Patient Requires Transmission-Based No No Precautions Height and Weight Height 5 ft 1 in Weight 200 lb 14.792 oz Weight in Pounds 200.9 lbs Body Mass Index (BMI) 37.9 37.9 37.9 BMI Classification Obese Obese Obese BSA - Silvio 1.89 Vital Signs Temperature (97.8 F-99.1 F) 96.7 F L 97.3 F L 98.2 F Temperature Source Temporal Temporal Temporal Pulse Rate (60-100) 107 H 100 105 H Pulse Location Monitor Monitor Monitor Respiratory Rate (12-18) 18 18 16 Respiratory rate source Observation Observation Observation Oxygen Delivery Method Room Air Blood Pressure (90/60-120/80) 128/57 H 144/82 H 152/75 H Blood Pressure Mean (mm Hg) 80 102 100 Source Monitor Monitor Monitor Position Semi-Fowlers Sitting Blood Pressure Location Left Arm Left Arm History Since Last Visit- (Skip if this is Patient's initial visit) Have you changed medications since your No No last visit? Any new allergies or adverse reactions No No Had a fall/change in ADL's that may No No increase risk of falls Signs or symptoms of abuse and/or No No neglect since last visit Have you been in the hospital since your No No last visit? Has dressing in place as prescribed Yes Yes Has compression in place as prescribed No N/A Has offloadiing in place as prescribed Yes N/A Experienced any changes in pain level or No No management Left Footwear Regular Shoe Right Footwear Regular Shoe Pain Scale: 0-10 Numeric Is Patient Pain Free? Yes Yes Yes Communication Assessment Able to Read Yes Able to Write No Right Hearing Abillity Normal Left Hearing Abillity Normal Visual Assistive Devices Glasses Teaching Assessment Preferences Verbal,Written Barriers to Learning None Readiness To Learn Good Willingness to Engage in Self Management Med Activies Readiness to Engage in Self Management Med Activities Anxiety Level Calm Cooperation Cooperative Perception Coherent Interest in Health Problem Asks Questions Education Importance Acknowledges Need Does Patient Smoke tobacco or other No substances Smoking Status Never smoker Is Patient Diabetic No Functional Assessment Recent Decline in Ability to Perform Denies Any Declines Culture/Voodoo/Inspector Cold Working Cultural/Voodoo Needs that may affect No Treatment Plan Would you allow our hospital maintenance supervisor 2nd shift to No meet you for the purpose of spiritual/ emotional support? Inspector Cold Working to contact place of druze No Teaching: Wound Center Dressing Your Wound -Person Taught Patient *Welcome to the Wound Center -Person Taught Patient 06/09/23 09:30 WC - Today's Visit Information Type of service Follow-up Visit (Physician/HAND GLOVE CLEANER ) Arrival Mode Ambulatory, Walker Transfer Assistance Accompanied by Patient Identification Verified (Name & Yes ) Patient Requires Transmission-Based Precautions Height and Weight Height Weight Weight in Pounds Body Mass Index (BMI) 37.9 BMI Classification Obese BSA - Silvio Vital Signs Temperature (97.8 F-99.1 F) 97.9 F Temperature Source Temporal Pulse Rate (60-100) 105 H Pulse Location Monitor Respiratory Rate (12-18) 18 Respiratory rate source Observation Oxygen Delivery Method Room Air Blood Pressure (90/60-120/80) 126/79 H Blood Pressure Mean (mm Hg) 94 Source Monitor Position Semi-Fowlers Blood Pressure Location Left Arm History Since Last Visit- (Skip if this is Patient's initial visit) Have you changed medications since your No last visit? Any new allergies or adverse reactions No Had a fall/change in ADL's that may No increase risk of falls Signs or symptoms of abuse and/or No neglect since last visit Have you been in the hospital since your No last visit? Has dressing in place as prescribed Yes Has compression in place as prescribed Yes Has offloadiing in place as prescribed N/A Experienced any changes in pain level or No management Left Footwear Regular Shoe Right Footwear Regular Shoe Pain Scale: 0-10 Numeric Is Patient Pain Free? Yes Communication Assessment Able to Read Able to Write Right Hearing Abillity Left Hearing Abillity Visual Assistive Devices Teaching Assessment Preferences Barriers to Learning Readiness To Learn Willingness to Engage in Self Management Activies Readiness to Engage in Self Management Activities Anxiety Level Cooperation Perception Interest in Health Problem Education Importance Does Patient Smoke tobacco or other substances Smoking Status Is Patient Diabetic Functional Assessment Recent Decline in Ability to Perform Culture/Voodoo/Inspector Cold Working Cultural/Voodoo Needs that may affect Treatment Plan Would you allow our hospital maintenance supervisor 2nd shift to meet you for the purpose of spiritual/ emotional support? Inspector Cold Working to contact place of druze Teaching: Wound Center Dressing Your Wound -Person Taught *Welcome to the Wound Center -Person Taught WC - Nurse 1 - General Ulcer Measurement Start: 05/19/23 08:53 Freq: Status: Active Protocol: Activity Type Activity Date Activity User E-sign Co-sign Detail Recorded Client Recorded Date Recorded By Document 05/19/23 08:53 DL Desktop 05/19/23 09:09 DL Document 05/27/23 15:11 RB Desktop 05/27/23 15:14 RB Document 06/02/23 09:50 KW Desktop 06/02/23 09:54 KW Document 06/09/23 09:30 KW Desktop 06/09/23 09:35 KW 05/19/23 05/27/23 06/02/23 08:53 15:11 09:50 Wound Center Nurse 1 #1 Sacral -Combined with other wound No -Current Size (cm) - Length 11 10.2 9.5 -Current Size (cm) - Width 5 5.5 5.2 -Current Size (cm) - Depth 5.5 5.2 3.6 -Total Square Cm 55 56.10 49.40 -Photo Taken Yes Yes -Tunneling No Yes -Tunneling Position (O'clock) 12 12 -Tunneling Distance (cm) 4 3.7 -Tunneling Position #2 (O'clock) -Tunneling Distance #2 (cm) -Undermining/Tunneling Yes Yes -Undermining/Tunneling Starts (O'clock 12 4 ) -Undermining/Tunneling Ends (O'clock) 12 6 -Maximum Distance (cm) 3.5 1.6 -Undermining/Tunneling Starts #2 (O' 6 clock) -Undermining/Tunneling Ends #2 (O' 6 clock) -Maximum Distance #2 (cm) 3.2 -Exudate Amt Medium Large Large -Exudate Type Serosanguineous Serosanguineous Serosanguineous -Wound Margin Distinct, Distinct, Distinct, Outline Outline Outline Attached Attached Attached -Granulation Amt Large (67-100%) Medium (34-66%) Large (67-100%) -Granulation Quality [place] Red -Slough/Fibrin Yes -Necrosis Amt None Present (0 Medium (34-66%) Small (1-33%) %) -Necrotic Tissue Type Adherent Slough Adherent Slough -Structure Exposed Fascia N/A -Texture (Nia-wound Skin Appearance) Scarring Assessed, Assessed Scarring -Moisture (Nia-wound Skin Appearance) No Abnormality Assessed Assessed -Color (Nia-wound Skin Appearance) No Abnormality Assessed Assessed -Temperature (Nia-wound Skin No Abnormality No Abnormality No Abnormality Appearance) (Pt Warm) (Pt Warm) (Pt Warm) -Tenderness on Palpation (Nia-wound No No Skin Appearance) -Ulcer Cleansing Soap and Water Wound Cleanser Soap and Water -Foul Odor after Cleansing No No No -Anesthetic Used 4% Lidocaine 4% Lidocaine 4% Lidocaine Solution Solution Solution Lower Limb Edema Present 06/09/23 09:30 Wound Center Nurse 1 #1 Sacral -Combined with other wound -Current Size (cm) - Length 9 -Current Size (cm) - Width 4.1 -Current Size (cm) - Depth 2 -Total Square Cm 36.9 -Photo Taken -Tunneling Yes -Tunneling Position (O'clock) 12 -Tunneling Distance (cm) 3.7 -Tunneling Position #2 (O'clock) 6 -Tunneling Distance #2 (cm) 1.1 -Undermining/Tunneling -Undermining/Tunneling Starts (O'clock ) -Undermining/Tunneling Ends (O'clock) -Maximum Distance (cm) -Undermining/Tunneling Starts #2 (O' clock) -Undermining/Tunneling Ends #2 (O' clock) -Maximum Distance #2 (cm) -Exudate Amt Medium -Exudate Type Serosanguineous -Wound Margin Distinct, Outline Attached -Granulation Amt Large (67-100%) -Granulation Quality Red -Slough/Fibrin -Necrosis Amt Small (1-33%) -Necrotic Tissue Type Eschar -Structure Exposed -Texture (Nia-wound Skin Appearance) Assessed -Moisture (Nia-wound Skin Appearance) Assessed -Color (Nia-wound Skin Appearance) Assessed -Temperature (Nia-wound Skin No Abnormality Appearance) (Pt Warm) -Tenderness on Palpation (Nia-wound Skin Appearance) -Ulcer Cleansing Soap and Water -Foul Odor after Cleansing -Anesthetic Used 5% Lidocaine Gel Lower Limb Edema Present NA WC - Nurse 2 - General Ulcer CM Notes Start: 05/19/23 08:53 Freq: Status: Active Protocol: Activity Type Activity Date Activity User E-sign Co-sign Detail Recorded Client Recorded Date Recorded By Document 05/19/23 09:29 [employer] 05/19/23 09:32 [employer] Document 05/27/23 15:17 [employer] Laptop 05/27/23 15:22 [employer] Document 06/02/23 10:13 [employer] Laptop 06/02/23 10:14 [employer] Document 06/09/23 09:50 [employer] Laptop 06/09/23 09:52 Xiaohongshu 05/19/23 05/27/23 06/02/23 09:29 15:17 10:13 Wound Center Nurse 2 #1 Sacral -Time 15:18 10:13 -Correct Patient No Yes Yes -Correct Side, Site, Position No Yes Yes -Correct Procedure No Yes Yes -Procedure Performed No Yes Yes -Type of Procedure Debridement Debridement -Clinical Debridement Muscle / Fascia Muscle / Fascia -Tissue Removed Muscle,Fascia Muscle,Fascia -Post Debridement (cm) - Length 11.7 10.3 9.3 -Post Debridement (cm) - Width 5.5 5.5 5.6 -Post Debridement (cm) - Depth 5.0 5.2 3.8 -Total Square (Post) (cm) 64.35 56.65 52.08 -Area of Debridement (cm) - Length 11.7 10.3 9.3 -Area of Debridement (cm) - Width 5.5 5.5 5.6 -Total Square (Area) (cm) 64.35 56.65 52.08 -Tunneling No Yes -Tunneling Position (O'clock) 12 -Tunneling Distance (cm) 4.7 -Tunneling Position #2 (O'clock) 6 -Tunneling Distance #2 (cm) 2.4 -Undermining/Tunneling Yes Yes No -Undermining/Tunneling Starts (O'clock 12 12 ) -Maximum Distance (cm) 3.8 3.5 -Undermining/Tunneling Starts #2 (O' 6 6 clock) -Maximum Distance #2 (cm) 2.3 3.2 -Circular Undermining No No -Wound/Ulcer Outcome Not Healed Not Healed Not Healed -Ulcer Cleansing Rinsed/ Rinsed/ Irrigated with Irrigated with Saline Saline -Foul Odor after Cleansing No No -Bioengineered Tissue No No -Bleeding Controlled with Pressure Pressure -Treatment Response Procedure Procedure Procedure Tolerated Well Tolerated Well Tolerated Well -Offloading No No No -Debridement - Muscle / Fascia, 1st No Yes Yes 20sq cm -Debridement, Muscle/Fascia, ea addt'l 2 2 20sq cm or part thereof Pain Scale: 0-10 Numeric Is Patient Pain Free? Yes Yes Yes 06/09/23 09:50 Wound Center Nurse 2 #1 Sacral -Time 09:50 -Correct Patient Yes -Correct Side, Site, Position Yes -Correct Procedure Yes -Procedure Performed Yes -Type of Procedure Debridement -Clinical Debridement Muscle / Fascia -Tissue Removed Muscle,Fascia -Post Debridement (cm) - Length 9.0 -Post Debridement (cm) - Width 4.8 -Post Debridement (cm) - Depth 3.6 -Total Square (Post) (cm) 43.20 -Area of Debridement (cm) - Length 9.0 -Area of Debridement (cm) - Width 4.8 -Total Square (Area) (cm) 43.20 -Tunneling Yes -Tunneling Position (O'clock) 12 -Tunneling Distance (cm) 3.7 -Tunneling Position #2 (O'clock) 6 -Tunneling Distance #2 (cm) 1.0 -Undermining/Tunneling No -Undermining/Tunneling Starts (O'clock ) -Maximum Distance (cm) -Undermining/Tunneling Starts #2 (O' clock) -Maximum Distance #2 (cm) -Circular Undermining No -Wound/Ulcer Outcome Not Healed -Ulcer Cleansing Rinsed/ Irrigated with Saline -Foul Odor after Cleansing No -Bioengineered Tissue No -Bleeding Controlled with Pressure -Treatment Response -Offloading No -Debridement - Muscle / Fascia, 1st Yes 20sq cm -Debridement, Muscle/Fascia, ea addt'l 1 20sq cm or part thereof Pain Scale: 0-10 Numeric Is Patient Pain Free? Yes - Nurse 3 - General Ulcer D/C NN Start: 05/19/23 08:53 Freq: Status: Active Protocol: Activity Type Activity Date Activity User E-sign Co-sign Detail Recorded Client Recorded Date Recorded By Document 05/19/23 09:44 [employer] 05/19/23 09:45 [employer] Document 05/27/23 15:32 KW Desktop 05/27/23 15:32 KW Document 06/02/23 10:32 [employer] Desktop 06/02/23 10:33 [facility] 05/19/23 05/27/23 06/02/23 09:44 15:32 10:32 Wound Care Center Nurse 3 #1 Sacral -Ulcer Cleansing Soap and Water Rinsed/ Irrigated with Saline -Foul Odor after Cleansing No No -Negative Pressure Wound Therapy Continue Continue Continue -Setting (mmHg) 150 150 125 -Negative Pressure is Continuous Continuous Continuous -Other Dressing no debridement today -NPWT Application Charge NPWT > 50 sq cm NPWT & NPWT & ($) Debridement (nc Debridement (nc ) ) Treatment Response Procedure Procedure Tolerated Well Tolerated Well Pain Scale: 0-10 Numeric Is Patient Pain Free? Yes Yes Yes WC - Visit Discharge Discharge Condition Stable Stable Stable Ambulatory Status Ambulatory, Ambulatory Ambulatory, Walker Walker Transportation Private Auto Private Auto Private Auto Accompanied by Medication Reconcilliation completed & No provided to patient/care provider Clinical Summary of Care Provided Yes Facility Type Home Health Home Health Assessment/Plan Assessment/Plan (1) Open wound of lumbar region: CODE(S): S31.000A - Unspecified open wound of lower back and pelvis without penetration into retroperitoneum, initial encounter (2) Postoperative infection: CODE(S): T81.40XA - Infection following a procedure, unspecified, initial encounter (3) Previous back surgery: CODE(S): Z98.890 - Other specified postprocedural states (4) History of incision and drainage: CODE(S): Z98.890 - Other specified postprocedural states PLAN: Plan Wound shows good granulation tissue. No bone seen. No hardware seen. Wound care - Wound VAC at 150 mmHg to be changed 3 times per week. At the time of the dressing change, the wound is to be cleansed with antibacterial soap and rinsed with water. The tunnel at 12 o'clock has improved. They are doing a good job packing the foam into the tunneled areas. Two sets of wound cultures were obtained during surgery on 05/08/23. The first set was of the purulent drainage and was positive for Escherichia coli, Enterococcus faecalis and Bacteroides fragilis. The second set of operative cultures were positive for MRSA, Enterococcus faecalis, Anaerobic cocci, and Bacteroides fragilis. Infectious disease was consulted while she was admitted. She was sent home on Doxycycline and Augmentin. Encourage nutritional supplementation with protein to help the healing process. Follow up one week.
== END 2023-06-12 23:59 | disposition home or self-care (01) ==
LOC: WC 09:45
PROVIDERS: Referring Provider Orthopaedic Surgery; Visit Provider Nurse Practitioner Family
DX: T81.40XA Infection following a procedure, unspecified, initial encounter (principal); S31.000A Unspecified open wound of lower back and pelvis without penetration into retroperitoneum, initial encounter; I10 Essential (primary) hypertension; Z98.890 Other specified postprocedural states; Z79.899 Other long term (current) drug therapy
CPT/HCPCS: 11043; 11046; 97606; 99214; G0463

== ENCOUNTER 2023-06-30 10:00 | Outpatient (RCR) | payer OTHER, SELFPAY ==
[2023-06-13 00:23] VITALS: BP 126/79; PULSE 105; RESP 18; TEMP 36.6; BMI 37.9
[2023-06-16 08:32] VITALS: BP 142/51; PULSE 86; RESP 18; BMI 37.9
--- NOTE | 2023-06-16 10:09 | PN.PCM_ITS ---
History of Present Illness Date of Service: 06/16/23 Chief Complaint: Lumbar wound after I&D History of Wound: Patient is a 63 year old female who underwent L4-5, L5-S1 posterior lumbar interbody fusion, decompression, posterior spinal fusion with instrumentation, use of allograft on 04/17/[address] Dominguez for lumbar spinal stenosis. She developed some redness and drainage a couple weeks after surgery. She was taken back to the OR on 05/08/23 for I&D and application of a wound VAC by Dr. Dominguez. Two sets of wound cultures were obtained during surgery. The first set was positive for Escherichia coli, Enterococcus faecalis and Bacteroides fragilis. The second set of operative cultures were positive for MRSA, Enterococcus faecalis, Anaerobic cocci, and Bacteroides fragilis. ID was consulted and treated with Vanc/Cefepime IV in the hospital, she was discharged on Doxycycline and Augmentin. She has [facility] home health to help with her wound VAC dressing changes 3 times per week. She denies any complaints of fever, chills, nausea or vomiting. Her appetite is ok. Progress of Wound: Mid lower back wound shows good granulation tissue. No bone seen. No hardware seen. Wound opening is smaller, the 12 o'clock tunnel is smaller. The 6 o'clock tunnel is almost closed. Nia wound is clear. She has a follow up appointment with Dr. Dominguez this morning. Objective Data Objective Data Vital Signs: Vital Signs Temp Pulse Resp BP O2 Del Method 97.9 F 86 18 142/51 H Room Air 06/13/23 00:23 06/16/23 08:32 06/16/23 08:32 06/16/23 08:32 06/16/23 08:32 Oxygen Delivery Method Room Air Weight: 200 lb 14.792 oz Body Mass Index (BMI) 37.9 Charges/Coding Procedures Integumentary 111xxx-113xx: 00006 Jonna musc/fascia 20 sq cm/< (ICD-10 - S31.000A, T81.40xA, Z98.890) Add On Codes: 47026 Jonna musc/fascia add-on ((ICD-10 - S31.000A, T81.40xA, Z98.890)) Debridement Note Debridement Note Wound debrided: #1 Lumbo-sacral area Laterality: Not Applicable Wound Grade/Stage: Grade 3 Type of Debridement: Excisional debridement Anesthesia Used: 5% Lidocaine Gel Depth: Down to and including healthy tissue, in the subcutaneous layer and to muscle (Bone was not seen. Hardware was not seen.) Percentage of wound debrided: 100 Instrument Used: 7mm curette Tissue Removed: Subcutaneous tissue and muscle. Severity: Fat Layer Exposed (Muscle exposed.) Amount of bleeding with debridement: Mild Bleeding Controlled with: Compression and gauze Patient tolerated procedure: Patient tolerated procedure well Post-Debridement Measurements and Additional Note: Post-Debridement Measurements/Treatment - Nurse 1 - General Ulcer Assessment Start: 06/16/23 08:32 Freq: Status: Active Protocol: RAJEEV Activity Type Activity Date Activity User E-sign Co-sign Detail Recorded Client Recorded Date Recorded By Document 06/16/23 08:32 KW Horizontal Systemsktop 06/16/23 08:33 KW 06/16/23 08:32 WC - Today's Visit Information Type of service Follow-up Visit (Physician/RN EXAMINER ) Arrival Mode Ambulatory, Walker Accompanied by family Patient Identification Verified (Name & Yes ) Height and Weight Body Mass Index (BMI) 37.9 BMI Classification Obese Vital Signs Pulse Rate (60-100) 86 Pulse Location Monitor Respiratory Rate (12-18) 18 Respiratory rate source Observation Oxygen Delivery Method Room Air Blood Pressure (90/60-120/80) 142/51 H Blood Pressure Mean (mm Hg) 81 Source Monitor Position Prone Blood Pressure Location Left Arm History Since Last Visit- (Skip if this is Patient's initial visit) Have you changed medications since your No last visit? Any new allergies or adverse reactions No Had a fall/change in ADL's that may No increase risk of falls Signs or symptoms of abuse and/or No neglect since last visit Have you been in the hospital since your No last visit? Has dressing in place as prescribed Yes Has compression in place as prescribed N/A Has offloadiing in place as prescribed N/A Experienced any changes in pain level or No management Left Footwear Regular Shoe Right Footwear Regular Shoe Pain Scale: 0-10 Numeric Is Patient Pain Free? Yes - Nurse 1 - General Ulcer Measurement Start: 06/16/23 08:32 Freq: Status: Active Protocol: Activity Type Activity Date Activity User E-sign Co-sign Detail Recorded Client Recorded Date Recorded By Document 06/16/23 08:32 KW Desktop 06/16/23 08:33 KW 06/16/23 08:32 Wound Center Nurse 1 #1 Sacral -Current Size (cm) - Length 8 -Current Size (cm) - Width 4 -Current Size (cm) - Depth 3 -Total Square Cm 32 -Exudate Amt Small -Exudate Type Serosanguineous -Wound Margin Distinct, Outline Attached -Granulation Amt Large (67-100%) -Granulation Quality Red -Necrosis Amt Small (1-33%) -Necrotic Tissue Type Adherent Slough -Texture (Nia-wound Skin Appearance) Assessed -Moisture (Nia-wound Skin Appearance) Assessed -Color (Nia-wound Skin Appearance) Assessed -Temperature (Nia-wound Skin No Abnormality Appearance) (Pt Warm) -Ulcer Cleansing Soap and Water -Foul Odor after Cleansing No -Anesthetic Used 4% Lidocaine Solution WC - Nurse 2 - General Ulcer CM Notes Start: 06/16/23 08:32 Freq: Status: Active Protocol: Activity Type Activity Date Activity User E-sign Co-sign Detail Recorded Client Recorded Date Recorded By Document 06/16/23 08:46 Laptop 06/16/23 08:48 06/16/23 08:46 Wound Center Nurse 2 -Correct Patient Yes -Correct Side, Site, Position Yes -Correct Procedure Yes -Procedure Performed Yes -Type of Procedure Debridement -Clinical Debridement Muscle / Fascia -Tissue Removed Muscle,Fascia -Post Debridement (cm) - Length 8.5 -Post Debridement (cm) - Width 4.3 -Post Debridement (cm) - Depth 2.7 -Total Square (Post) (cm) 36.55 -Area of Debridement (cm) - Length 8.5 -Area of Debridement (cm) - Width 4.3 -Total Square (Area) (cm) 36.55 -Tunneling Yes -Tunneling Position (O'clock) 12 -Tunneling Distance (cm) 2.2 -Tunneling Position #2 (O'clock) 6 -Tunneling Distance #2 (cm) 0.6 -Undermining/Tunneling No -Circular Undermining No -Wound/Ulcer Outcome Not Healed -Ulcer Cleansing Rinsed/ Irrigated with Saline -Foul Odor after Cleansing No -Bioengineered Tissue No -Bleeding Controlled with Pressure -Treatment Response Procedure Tolerated Well -Offloading No -Debridement - Muscle / Fascia, 1st Yes 20sq cm -Debridement, Muscle/Fascia, ea addt'l 1 20sq cm or part thereof Pain Scale: 0-10 Numeric Is Patient Pain Free? Yes - Nurse 3 - General Ulcer D/C NN Start: 06/16/23 08:32 Freq: Status: Active Protocol: Activity Type Activity Date Activity User E-sign Co-sign Detail Recorded Client Recorded Date Recorded By Document 06/16/23 08:48 Laptop 06/16/23 08:49 06/16/23 08:48 Wound Care Center Nurse 3 #1 Sacral -Ulcer Cleansing Rinsed/ Irrigated with Saline -Foul Odor after Cleansing No -Negative Pressure Wound Therapy Continue -Setting (mmHg) 150 -Negative Pressure is Continuous -NPWT Application Charge NPWT & Debridement (nc ) Pain Scale: 0-10 Numeric Is Patient Pain Free? Yes WC - Visit Discharge Discharge Condition Stable Ambulatory Status Ambulatory Transportation Private Auto Accompanied by family Medication Reconcilliation completed & Yes provided to patient/care provider Clinical Summary of Care Provided Yes Assessment/Plan Assessment/Plan (1) Open wound of lumbar region: CODE(S): S31.000A - Unspecified open wound of lower back and pelvis without penetration into retroperitoneum, initial encounter (2) Postoperative infection: CODE(S): T81.40XA - Infection following a procedure, unspecified, initial encounter (3) Previous back surgery: CODE(S): Z98.890 - Other specified postprocedural states (4) History of incision and drainage: CODE(S): Z98.890 - Other specified postprocedural states PLAN: Plan Wound shows good granulation tissue. No bone seen. No hardware seen. Wound care - Wound VAC at 150 mmHg to be changed 3 times per week. At the time of the dressing change, the wound is to be cleansed with antibacterial soap and rinsed with water. The tunnel at 12 o'clock has improved. The tunnel at 6 o'clock is almost resolved. They are doing a good job packing the foam into the tunneled areas. Two sets of wound cultures were obtained during surgery on 05/08/23. The first set was of the purulent drainage and was positive for Escherichia coli, Enterococcus faecalis and Bacteroides fragilis. The second set of operative cultures were positive for MRSA, Enterococcus faecalis, Anaerobic cocci, and Bacteroides fragilis. Infectious disease was consulted while she was admitted. She was sent home on Doxycycline and Augmentin. Encourage nutritional supplementation with protein to help the healing process. Follow up one week.
[2023-06-23 09:04] VITALS: BP 169/64; PULSE 91; RESP 16; TEMP 36.2; BMI 37.9
--- NOTE | 2023-06-23 11:16 | PCM.WC.PN ---
History of Present Illness Date of Service: 06/23/23 Chief Complaint: Lumbar wound after I&D History of Wound: Patient is a 63 year old female who underwent L4-5, L5-S1 posterior lumbar interbody fusion, decompression, posterior spinal fusion with instrumentation, use of allograft on 04/17/[address] Dominguez for lumbar spinal stenosis. She developed some redness and drainage a couple weeks after surgery. She was taken back to the OR on 05/08/23 for I&D and application of a wound VAC by Dr. Dominguez. Two sets of wound cultures were obtained during surgery. The first set was positive for Escherichia coli, Enterococcus faecalis and Bacteroides fragilis. The second set of operative cultures were positive for MRSA, Enterococcus faecalis, Anaerobic cocci, and Bacteroides fragilis. ID was consulted and treated with Vanc/Cefepime IV in the hospital, she was discharged on Doxycycline and Augmentin. She has [facility] home health to help with her wound VAC dressing changes 3 times per week. She denies any complaints of fever, chills, nausea or vomiting. Her appetite is ok. Progress of Wound: Mid lower back ulcer shows good granulation tissue and is smaller in size. The 6 o'clock tunnel has resolved and the 12 o'clock is almost completely resolved. No bone seen. No hardware seen. Nia wound has areas of excoriation this week. She states that she has not been having issue with the wound VAC keeping a seal. Objective Data Objective Data Vital Signs: Vital Signs Temp Pulse Resp BP O2 Del Method 97.2 F L 91 16 169/64 H Room Air 06/23/23 09:04 06/23/23 09:04 06/23/23 09:04 06/23/23 09:04 06/23/23 09:04 Oxygen Delivery Method Room Air Weight: 200 lb 14.792 oz Body Mass Index (BMI) 37.9 Charges/Coding Procedures Integumentary 111xxx-113xx: 02588 Jonna musc/fascia 20 sq cm/< (ICD-10 - S31.000A, T81.40xA, Z98.890) Add On Codes: 84840 Jonna musc/fascia add-on ((ICD-10 - S31.000A, T81.40xA, Z98.890)) Debridement Note Debridement Note Wound debrided: #1 Lumbo-sacral area Laterality: Not Applicable Wound Grade/Stage: Grade 3 Type of Debridement: Excisional debridement Anesthesia Used: 5% Lidocaine Gel Depth: Down to and including healthy tissue, in the subcutaneous layer and to muscle (Bone was not seen. Hardware was not seen.) Percentage of wound debrided: 100 Instrument Used: 7mm curette Tissue Removed: Subcutaneous tissue and muscle. Severity: Fat Layer Exposed (Muscle exposed.) Amount of bleeding with debridement: Mild Bleeding Controlled with: Compression and gauze Patient tolerated procedure: Patient tolerated procedure well Post-Debridement Measurements and Additional Note: Post-Debridement Measurements/Treatment - Nurse 1 - General Ulcer Assessment Start: 06/16/23 08:32 Freq: Status: Active Protocol: Handshake Activity Type Activity Date Activity User E-sign Co-sign Detail Recorded Client Recorded Date Recorded By Document 06/16/23 08:32 KW Desktop 06/16/23 08:33 KW Document 06/23/23 09:04 BMF Desktop 06/23/23 09:14 BMF 06/16/23 06/23/23 08:32 09:04 - Today's Visit Information Type of service Follow-up Visit Follow-up Visit (Physician/[employer]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 ) ) Arrival Mode Ambulatory, Ambulatory, Walker Walker Transfer Assistance None Accompanied by family sister in law Patient Identification Verified (Name & Yes Yes ) Patient Requires Transmission-Based No Precautions Height and Weight Body Mass Index (BMI) 37.9 37.9 BMI Classification Obese Obese Vital Signs Temperature (97.8 F-99.1 F) 97.2 F L Temperature Source Temporal Pulse Rate (60-100) 86 91 Pulse Location Monitor Monitor Respiratory Rate (12-18) 18 16 Respiratory rate source Observation Observation Oxygen Delivery Method Room Air Room Air Blood Pressure (90/60-120/80) 142/51 H 169/64 H Blood Pressure Mean (mm Hg) 81 99 Source Monitor Monitor Position Prone Sitting Blood Pressure Location Left Arm History Since Last Visit- (Skip if this is Patient's initial visit) Have you changed medications since your No No last visit? Any new allergies or adverse reactions No No Had a fall/change in ADL's that may No No increase risk of falls Signs or symptoms of abuse and/or No No neglect since last visit Have you been in the hospital since your No No last visit? Has dressing in place as prescribed Yes Yes Has compression in place as prescribed N/A N/A Has offloadiing in place as prescribed N/A N/A Experienced any changes in pain level or No No management Left Footwear Regular Shoe Regular Shoe Right Footwear Regular Shoe Regular Shoe Pain Scale: 0-10 Numeric Is Patient Pain Free? Yes Yes WC - Nurse 1 - General Ulcer Measurement Start: 06/16/23 08:32 Freq: Status: Active Protocol: Activity Type Activity Date Activity User E-sign Co-sign Detail Recorded Client Recorded Date Recorded By Document 06/16/23 08:32 KW Desktop 06/16/23 08:33 KW Document 06/23/23 09:04 BMF Desktop 06/23/23 09:14 BMF 06/16/23 06/23/23 08:32 09:04 Wound Center Nurse 1 #1 Sacral -Combined with other wound No -Current Size (cm) - Length 8 7.9 -Current Size (cm) - Width 4 4 -Current Size (cm) - Depth 3 3.9 -Total Square Cm 32 31.6 -Date of Last Picture (Recall this 06/23/23 field) -Photo Taken Yes -Epithelialization Small 1-33% -Tunneling Yes -Tunneling Position (O'clock) 12 -Tunneling Distance (cm) 1.7 -Tunneling Position #2 (O'clock) 6 -Tunneling Distance #2 (cm) 2.2 -Undermining/Tunneling No -Circular Undermining No -Exudate Amt Small Medium -Exudate Type Serosanguineous Serosanguineous -Wound Margin Distinct, Distinct, Outline Outline Attached Attached -Granulation Amt Large (67-100%) Large (67-100%) -Granulation Quality Red Red -Slough/Fibrin Yes -Necrosis Amt Small (1-33%) Small (1-33%) -Necrotic Tissue Type Adherent Slough Adherent Slough -Texture (Nia-wound Skin Appearance) Assessed Assessed, Scarring -Moisture (Nia-wound Skin Appearance) Assessed Assessed -Color (Nia-wound Skin Appearance) Assessed Assessed -Temperature (Nia-wound Skin No Abnormality No Abnormality Appearance) (Pt Warm) (Pt Warm) -Tenderness on Palpation (Nia-wound Yes Skin Appearance) -Ulcer Cleansing Soap and Water Soap and Water -Foul Odor after Cleansing No No -Anesthetic Used 4% Lidocaine 4% Lidocaine Solution Solution -Wound Comment(s) small papular rash periwound. DESTINEE - Nurse 2 - General Ulcer CM Notes Start: 06/16/23 08:32 Freq: Status: Active Protocol: Activity Type Activity Date Activity User E-sign Co-sign Detail Recorded Client Recorded Date Recorded By Document 06/16/23 08:46 Laptop 06/16/23 08:48 Document 06/23/23 09:40 Laptop 06/23/23 09:47 06/16/23 06/23/23 08:46 09:40 Wound Center Nurse 2 #1 Sacral -Time 09:40 -Correct Patient Yes Yes -Correct Side, Site, Position Yes Yes -Correct Procedure Yes Yes -Procedure Performed Yes Yes -Type of Procedure Debridement Debridement -Clinical Debridement Muscle / Fascia Muscle / Fascia -Tissue Removed Muscle,Fascia Muscle,Fascia -Post Debridement (cm) - Length 8.5 8.2 -Post Debridement (cm) - Width 4.3 4 -Post Debridement (cm) - Depth 2.7 2.7 -Total Square (Post) (cm) 36.55 32.8 -Area of Debridement (cm) - Length 8.5 8.2 -Area of Debridement (cm) - Width 4.3 4 -Total Square (Area) (cm) 36.55 32.8 -Tunneling Yes Yes -Tunneling Position (O'clock) 12 12 -Tunneling Distance (cm) 2.2 0.7 -Tunneling Position #2 (O'clock) 6 -Tunneling Distance #2 (cm) 0.6 -Undermining/Tunneling No No -Circular Undermining No No -Wound/Ulcer Outcome Not Healed Not Healed -Ulcer Cleansing Rinsed/ Rinsed/ Irrigated with Irrigated with Saline Saline -Foul Odor after Cleansing No No -Bioengineered Tissue No No -Bleeding Controlled with Pressure Pressure -Treatment Response Procedure Procedure Tolerated Well Tolerated Well -Offloading No No -Debridement - Muscle / Fascia, 1st Yes Yes 20sq cm -Debridement, Muscle/Fascia, ea addt'l 1 1 20sq cm or part thereof Pain Scale: 0-10 Numeric Is Patient Pain Free? Yes Yes DESTINEE - Nurse 3 - General Ulcer D/C NN Start: 06/16/23 08:32 Freq: Status: Active Protocol: Activity Type Activity Date Activity User E-sign Co-sign Detail Recorded Client Recorded Date Recorded By Document 06/16/23 08:48 Laptop 06/16/23 08:49 JF Document 06/23/23 09:52 KW Desktop 06/23/23 09:53 KW 06/16/23 06/23/23 08:48 09:52 Wound Care Center Nurse 3 #1 Sacral -Ulcer Cleansing Rinsed/ Rinsed/ Irrigated with Irrigated with Saline Saline -Foul Odor after Cleansing No -Negative Pressure Wound Therapy Continue -Setting (mmHg) 150 -Negative Pressure is Continuous -Primary Dressing Applied Hysept ($) -Primary Dressing Covered/Secured with Dry Gauze, Secured with Tape -NPWT Application Charge NPWT & Debridement (nc ) Pain Scale: 0-10 Numeric Is Patient Pain Free? Yes Yes WC - Visit Discharge Discharge Condition Stable Stable Ambulatory Status Ambulatory Ambulatory, Walker Transportation Private Auto Private Auto Accompanied by family Medication Reconcilliation completed & Yes No provided to patient/care provider Clinical Summary of Care Provided Yes Yes Assessment/Plan Assessment/Plan (1) Skin ulcer of lower back with fat layer exposed: CODE(S): L98.422 - Non-pressure chronic ulcer of back with fat layer exposed (2) Postoperative infection: CODE(S): T81.40XA - Infection following a procedure, unspecified, initial encounter (3) Previous back surgery: CODE(S): Z98.890 - Other specified postprocedural states (4) History of incision and drainage: CODE(S): Z98.890 - Other specified postprocedural states PLAN: Plan Wound shows good granulation tissue. No bone seen. No hardware seen. Wound care - She would benefit from a wound VAC holiday for a couple days to allow her nia wound to heal. Will place Dakin's 0.25% moistened gauze covered with ABD daily for today and tomorrow and have home health restart Wound VAC at 150 mmHg on Friday06/25/23 and then will be changed 3 times per week. At the time of the dressing change, the wound is to be cleansed with antibacterial soap and rinsed with water. The tunnel at 12 o'clock has improved. The tunnel at 6 o'clock is almost resolved. They are doing a good job packing the foam into the tunneled areas. Two sets of wound cultures were obtained during surgery on 05/08/23. The first set was of the purulent drainage and was positive for Escherichia coli, Enterococcus faecalis and Bacteroides fragilis. The second set of operative cultures were positive for MRSA, Enterococcus faecalis, Anaerobic cocci, and Bacteroides fragilis. Infectious disease was consulted while she was admitted. She was sent home on Doxycycline and Augmentin. Encourage nutritional supplementation with protein to help the healing process. Follow up one week.
[2023-06-30 10:00] VITALS: BP 162/81; PULSE 101; RESP 18; TEMP 35.4; BMI 37.9
--- NOTE | 2023-06-30 13:19 | PCM.WC.PN ---
History of Present Illness Date of Service: 06/30/23 Chief Complaint: Lumbar wound after I&D History of Wound: Patient is a 63 year old female who underwent L4-5, L5-S1 posterior lumbar interbody fusion, decompression, posterior spinal fusion with instrumentation, use of allograft on 04/17/[address] Dominguez for lumbar spinal stenosis. She developed some redness and drainage a couple weeks after surgery. She was taken back to the OR on 05/08/23 for I&D and application of a wound VAC by Dr. Dominguez. Two sets of wound cultures were obtained during surgery. The first set was positive for Escherichia coli, Enterococcus faecalis and Bacteroides fragilis. The second set of operative cultures were positive for MRSA, Enterococcus faecalis, Anaerobic cocci, and Bacteroides fragilis. ID was consulted and treated with Vanc/Cefepime IV in the hospital, she was discharged on Doxycycline and Augmentin. She has [facility] home health to help with her wound VAC dressing changes 3 times per week. She denies any complaints of fever, chills, nausea or vomiting. Her appetite is ok. Progress of Wound: Mid lower back ulcer shows good granulation tissue and is smaller in size. The tunnels at both 6 and 12 o'clock have resolved. There is less depth. No bone seen. No hardware seen. Lashon areas of excoriation with areas of small blisters with clear fluid present. She states that when she took the wound VAC holiday for a couple days last week that her lashon wound area improved. It started to get worse after the wound VAC was restarted. Objective Data Objective Data Vital Signs: Vital Signs Temp Pulse Resp BP O2 Del Method 95.8 F L 101 H 18 162/81 H Room Air 06/30/23 10:00 06/30/23 10:00 06/30/23 10:06/30/23 10:06/30/23 10:00 Oxygen Delivery Method Room Air Weight: 200 lb 14.792 oz Body Mass Index (BMI) 37.9 Charges/Coding Procedures Integumentary 111xxx-113xx: 62747 Jonna musc/fascia 20 sq cm/< (ICD-10 - S31.000A, T81.40xA, Z98.890) Add On Codes: 84288 Jonna musc/fascia add-on ((ICD-10 - S31.000A, T81.40xA, Z98.890)) Debridement Note Debridement Note Wound debrided: #1 Lumbo-sacral area Laterality: Not Applicable Wound Grade/Stage: Grade 3 Type of Debridement: Excisional debridement Anesthesia Used: 5% Lidocaine Gel Depth: Down to and including healthy tissue, in the subcutaneous layer and to muscle (Bone was not seen. Hardware was not seen.) Percentage of wound debrided: 100 Instrument Used: 7mm curette Tissue Removed: Subcutaneous tissue and muscle. Severity: Fat Layer Exposed (Muscle exposed.) Amount of bleeding with debridement: Mild Bleeding Controlled with: Compression and gauze Patient tolerated procedure: Patient tolerated procedure well Post-Debridement Measurements and Additional Note: Post-Debridement Measurements/Treatment - Nurse 1 - General Ulcer Assessment Start: 06/16/23 08:32 Freq: Status: Active Protocol: RAJEEV Activity Type Activity Date Activity User E-sign Co-sign Detail Recorded Client Recorded Date Recorded By Document 06/16/23 08:32 KW [employer] 06/16/23 08:33 KW Document 06/23/23 09:04 [employer] Desktop 06/23/23 09:14 BMF Document 06/30/23 10:00 KW Desktop 06/30/23 10:17 KW 06/16/23 06/23/23 06/30/23 08:32 09:04 10:00 - Today's Visit Information Type of service Follow-up Visit Follow-up Visit Follow-up Visit (Physician/BUMPER AND PAINTER (Physician/BUMPER AND PAINTER (Physician/BUMPER AND PAINTER ) ) ) Arrival Mode Ambulatory, Ambulatory, Ambulatory, Walker Walker Walker Transfer Assistance None Accompanied by family sister in law Patient Identification Verified (Name & Yes Yes Yes ) Patient Requires Transmission-Based No Precautions Height and Weight Body Mass Index (BMI) 37.9 37.9 37.9 BMI Classification Obese Obese Obese Vital Signs Temperature (97.8 F-99.1 F) 97.2 F L 95.8 F L Temperature Source Temporal Temporal Pulse Rate (60-100) 86 91 101 H Pulse Location Monitor Monitor Monitor Respiratory Rate (12-18) 18 16 18 Respiratory rate source Observation Observation Observation Oxygen Delivery Method Room Air Room Air Room Air Blood Pressure (90/60-120/80) 142/51 H 169/64 H 162/81 H Blood Pressure Mean (mm Hg) 81 99 108 Source Monitor Monitor Monitor Position Prone Sitting Sitting Blood Pressure Location Left Arm Left Arm History Since Last Visit- (Skip if this is Patient's initial visit) Have you changed medications since your No No No last visit? Any new allergies or adverse reactions No No No Had a fall/change in ADL's that may No No No increase risk of falls Signs or symptoms of abuse and/or No No No neglect since last visit Have you been in the hospital since your No No No last visit? Has dressing in place as prescribed Yes Yes Yes Has compression in place as prescribed N/A N/A N/A Has offloadiing in place as prescribed N/A N/A N/A Experienced any changes in pain level or No No No management Left Footwear Regular Shoe Regular Shoe Regular Shoe Right Footwear Regular Shoe Regular Shoe Regular Shoe Pain Scale: 0-10 Numeric Is Patient Pain Free? Yes Yes Yes WC - Nurse 1 - General Ulcer Measurement Start: 06/16/23 08:32 Freq: Status: Active Protocol: Activity Type Activity Date Activity User E-sign Co-sign Detail Recorded Client Recorded Date Recorded By Document 06/16/23 08:32 KW Desktop 06/16/23 08:33 KW Document 06/23/23 09:04 BMF Desktop 06/23/23 09:14 BMF Document 06/30/23 10:00 KW Desktop 06/30/23 10:17 KW 06/16/23 06/23/23 06/30/23 08:32 09:04 10:00 Wound Center Nurse 1 #1 Sacral -Combined with other wound No -Current Size (cm) - Length 8 7.9 7.2 -Current Size (cm) - Width 4 4 3.7 -Current Size (cm) - Depth 3 3.9 3.1 -Total Square Cm 32 31.6 26.64 -Date of Last Picture (Recall this 06/23/23 field) -Photo Taken Yes -Epithelialization Small 1-33% -Tunneling Yes -Tunneling Position (O'clock) 12 12 -Tunneling Distance (cm) 1.7 0.7 -Tunneling Position #2 (O'clock) 6 -Tunneling Distance #2 (cm) 2.2 -Undermining/Tunneling No -Circular Undermining No -Exudate Amt Small Medium Small -Exudate Type Serosanguineous Serosanguineous Serosanguineous -Wound Margin Distinct, Distinct, Distinct, Outline Outline Outline Attached Attached Attached -Granulation Amt Large (67-100%) Large (67-100%) Large (67-100%) -Granulation Quality [place] -Slough/Fibrin Yes -Necrosis Amt Small (1-33%) Small (1-33%) -Necrotic Tissue Type Adherent Slough Adherent Slough -Texture (Lashon-wound Skin Appearance) Assessed Assessed, Assessed,Rash Scarring -Moisture (Lashon-wound Skin Appearance) Assessed Assessed Assessed -Color (Lashon-wound Skin Appearance) Assessed Assessed Assessed -Temperature (Lashon-wound Skin No Abnormality No Abnormality No Abnormality Appearance) (Pt Warm) (Pt Warm) (Pt Warm) -Tenderness on Palpation (Lashon-wound Yes Yes Skin Appearance) -Ulcer Cleansing Soap and Water Soap and Water Soap and Water -Foul Odor after Cleansing No No -Anesthetic Used 4% Lidocaine 4% Lidocaine 4% Lidocaine Solution Solution Solution -Wound Comment(s) small papular rash periwound. WC - Nurse 2 - General Ulcer CM Notes Start: 06/16/23 08:32 Freq: Status: Active Protocol: Activity Type Activity Date Activity User E-sign Co-sign Detail Recorded Client Recorded Date Recorded By Document 06/16/23 08:46 [employer] 06/16/23 08:48 Document 06/23/23 09:40 Laptop 06/23/23 09:47 Document 06/30/23 10:38 Laptop 06/30/23 10:43 06/16/23 06/23/23 06/30/23 08:46 09:40 10:38 Wound Center Nurse 2 #1 Sacral -Time 09:40 10:38 -Correct Patient Yes Yes Yes -Correct Side, Site, Position Yes Yes Yes -Correct Procedure Yes Yes Yes -Procedure Performed Yes Yes Yes -Type of Procedure Debridement Debridement Debridement -Clinical Debridement Muscle / Fascia Muscle / Fascia Muscle / Fascia -Tissue Removed Muscle,Fascia Muscle,Fascia Muscle,Fascia -Post Debridement (cm) - Length 8.5 8.2 7.7 -Post Debridement (cm) - Width 4.3 4 4.3 -Post Debridement (cm) - Depth 2.7 2.7 2.8 -Total Square (Post) (cm) 36.55 32.8 33.11 -Area of Debridement (cm) - Length 8.5 8.2 7.7 -Area of Debridement (cm) - Width 4.3 4 4.3 -Total Square (Area) (cm) 36.55 32.8 33.11 -Tunneling Yes Yes No -Tunneling Position (O'clock) 12 12 -Tunneling Distance (cm) 2.2 0.7 -Tunneling Position #2 (O'clock) 6 -Tunneling Distance #2 (cm) 0.6 -Undermining/Tunneling No No No -Circular Undermining No No No -Wound/Ulcer Outcome Not Healed Not Healed Not Healed -Ulcer Cleansing Rinsed/ Rinsed/ Rinsed/ Irrigated with Irrigated with Irrigated with Saline Saline Saline -Foul Odor after Cleansing No No No -Bioengineered Tissue No No No -Bleeding Controlled with Pressure Pressure Pressure -Treatment Response Procedure Procedure Procedure Tolerated Well Tolerated Well Tolerated Well -Offloading No No No -Assistive Device(s) Walker -Debridement - Muscle / Fascia, 1st Yes Yes Yes 20sq cm -Debridement, Muscle/Fascia, ea addt'l 1 1 1 20sq cm or part thereof Pain Scale: 0-10 Numeric Is Patient Pain Free? Yes Yes Yes - Nurse 3 - General Ulcer D/C NN Start: 06/16/23 08:32 Freq: Status: Active Protocol: Activity Type Activity Date Activity User E-sign Co-sign Detail Recorded Client Recorded Date Recorded By Document 06/16/23 08:48 [employer] 06/16/23 08:49 [employer] Document 06/23/23 09:52 KW Desktop 06/23/23 09:53 KW Document 06/30/23 10:55 KW Desktop 06/30/23 10:56 KW 06/16/23 06/23/23 06/30/23 08:48 09:52 10:55 Wound Care Center Nurse 3 #1 Sacral -Ulcer Cleansing Rinsed/ Rinsed/ Irrigated with Irrigated with Saline Saline -Foul Odor after Cleansing No -Negative Pressure Wound Therapy Continue -Setting (mmHg) 150 -Negative Pressure is Continuous -Primary Dressing Applied Hysept ($) -Primary Dressing Covered/Secured with Dry Gauze, Dry Gauze, Secured with Secured with Tape Tape -NPWT Application Charge NPWT & Debridement (nc ) Pain Scale: 0-10 Numeric Is Patient Pain Free? 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 No bone seen. No hardware seen. She would benefit from a wound VAC holiday for more than a couple days to help with her lashon wound excoriation.. Patient is very hesitant to take a break from the wound VAC. She does not trust her to change her dressing, but she will allow her [id number] to change it. Wound care - The VAC holiday will be until Friday ,07/04/23. Will place Dakin's 0.25% moistened gauze covered with ABD daily until Friday when home health can restart Wound VAC at 150 mmHg and then will be changed 3 times per week. At the time of the dressing change, the wound is to be cleansed with antibacterial soap and rinsed with water. Two sets of wound cultures were obtained during surgery on 05/08/23. The first set was of the purulent drainage and was positive for Escherichia coli, Enterococcus faecalis and Bacteroides fragilis. The second set of operative cultures were positive for MRSA, Enterococcus faecalis, Anaerobic cocci, and Bacteroides fragilis. Infectious disease was consulted while she was admitted. She was sent home on Doxycycline and Augmentin. Encourage nutritional supplementation with protein to help the healing process. Follow up 2 weeks since I will be out of town.
== END 2023-07-13 23:59 | disposition home or self-care (01) ==
LOC: WC 10:00
PROVIDERS: Referring Provider Orthopaedic Surgery; Visit Provider Nurse Practitioner Family
DX: T81.40XA Infection following a procedure, unspecified, initial encounter (principal); L98.422 Non-pressure chronic ulcer of back with fat layer exposed; Z98.890 Other specified postprocedural states
CPT/HCPCS: 11043; 11046

== ENCOUNTER 2023-08-04 09:15 | Outpatient (RCR) | payer OTHER, SELFPAY ==
[2023-07-14 00:20] VITALS: BP 162/81; PULSE 101; RESP 18; TEMP 35.4; BMI 37.9
[2023-07-14 09:54] VITALS: BP 161/73; PULSE 98; RESP 18; TEMP 36.7; BMI 37.9
--- NOTE | 2023-07-14 12:28 | PN.PCM_ITS ---
History of Present Illness Date of Service: 07/14/23 Chief Complaint: Lumbar wound after I&D History of Wound: Patient is a 63 year old female who underwent L4-5, L5-S1 posterior lumbar interbody fusion, decompression, posterior spinal fusion with instrumentation, use of allograft on 04/17/[address] Dominguez for lumbar spinal stenosis. She developed some redness and drainage a couple weeks after surgery. She was taken back to the OR on 05/08/23 for I&D and application of a wound VAC by Dr. Dominguez. Two sets of wound cultures were obtained during surgery. The first set was positive for Escherichia coli, Enterococcus faecalis and Bacteroides fragilis. The second set of operative cultures were positive for MRSA, Enterococcus faecalis, Anaerobic cocci, and Bacteroides fragilis. ID was consulted and treated with Vanc/Cefepime IV in the hospital, she was discharged on Doxycycline and Augmentin. She has [facility] home health to help with her wound VAC dressing changes 3 times per week. She denies any complaints of fever, chills, nausea or vomiting. Her appetite is ok. Progress of Wound: Mid lower back ulcer shows good granulation tissue and is smaller in size. The tunneling remains resolved. No bone seen. No hardware seen. Nia areas of excoriation are dried and scabby. The erythema has resolved. She has been on wound VAC holiday for 2 weeks because she tried restarting the vac and she started to get blisters from the drape. Instructed her to return the wound VAC and we would continue with the Dakin's moistened gauze dressing changes. Objective Data Objective Data Vital Signs: Vital Signs Temp Pulse Resp BP O2 Del Method 98.1 F 98 18 161/73 H Room Air 07/14/23 09:54 07/14/23 09:54 07/14/23 09:54 07/14/23 09:54 07/14/23 09:54 Oxygen Delivery Method Room Air Weight: 200 lb 14.792 oz Body Mass Index (BMI) 37.9 Charges/Coding Procedures Integumentary 111xxx-113xx: 34983 Jonna musc/fascia 20 sq cm/< (ICD-10 - S31.000A, T81.40xA, Z98.890) Add On Codes: 97664 Jonna musc/fascia add-on ((ICD-10 - S31.000A, T81.40xA, Z98.890)) Debridement Note Debridement Note Wound debrided: #1 Lumbo-sacral area Laterality: Not Applicable Wound Grade/Stage: Grade 3 Type of Debridement: Excisional debridement Anesthesia Used: 5% Lidocaine Gel Depth: Down to and including healthy tissue, in the subcutaneous layer and to muscle (Bone was not seen. Hardware was not seen.) Percentage of wound debrided: 100 Instrument Used: 7mm curette Tissue Removed: Subcutaneous tissue and muscle. Severity: Fat Layer Exposed (Muscle exposed.) Amount of bleeding with debridement: Mild Bleeding Controlled with: Compression and gauze Patient tolerated procedure: Patient tolerated procedure well Post-Debridement Measurements and Additional Note: Post-Debridement Measurements/Treatment WC - Nurse 1 - General Ulcer Assessment Start: 07/14/23 09:52 Freq: Status: Active Protocol: RAJEEV Activity Type Activity Date Activity User E-sign Co-sign Detail Recorded Client Recorded Date Recorded By Document 07/14/23 09:54 KW Desktop 07/14/23 09:59 KW 07/14/23 09:54 - Today's Visit Information Type of service Follow-up Visit (Physician/EVENTS [employer]UT[employer] CONSULTANT ) Arrival Mode Ambulatory Patient Identification Verified (Name & Yes ) Height and Weight Body Mass Index (BMI) 37.9 BMI Classification Obese Vital Signs Temperature (97.8 F-99.1 F) 98.1 F Temperature Source Temporal Pulse Rate (60-100) 98 Pulse Location Monitor Respiratory Rate (12-18) 18 Respiratory rate source Observation Oxygen Delivery Method Room Air Blood Pressure (90/60-120/80) 161/73 H Blood Pressure Mean (mm Hg) 102 Source Monitor Position Sitting Blood Pressure Location Left Arm History Since Last Visit- (Skip if this is Patient's initial visit) Have you changed medications since your No last visit? Any new allergies or adverse reactions No Had a fall/change in ADL's that may No increase risk of falls Signs or symptoms of abuse and/or No neglect since last visit Have you been in the hospital since your No last visit? Has dressing in place as prescribed Yes Has compression in place as prescribed N/A Has offloadiing in place as prescribed N/A Experienced any changes in pain level or No management Left Footwear Regular Shoe Right Footwear Regular Shoe Pain Scale: 0-10 Numeric Is Patient Pain Free? Yes - Nurse 1 - General Ulcer Measurement Start: 07/14/23 09:52 Freq: Status: Active Protocol: Activity Type Activity Date Activity User E-sign Co-sign Detail Recorded Client Recorded Date Recorded By Document 07/14/23 09:54 KW Desktop 07/14/23 09:59 KW 07/14/23 09:54 Wound Center Nurse 1 #1 Sacral -Current Size (cm) - Length 7.8 -Current Size (cm) - Width 3.1 -Current Size (cm) - Depth 3 -Total Square Cm 24.18 -Date of Last Picture (Recall this 07/14/23 field) -Photo Taken Yes -Exudate Amt Small -Exudate Type Serosanguineous -Wound Margin Distinct, Outline Attached -Granulation Amt Large (67-100%) -Granulation Quality Red -Texture (Nia-wound Skin Appearance) Assessed -Moisture (Nia-wound Skin Appearance) Assessed, Maceration -Color (Nia-wound Skin Appearance) Assessed -Temperature (Nia-wound Skin No Abnormality Appearance) (Pt Warm) -Ulcer Cleansing Soap and Water -Anesthetic Used 4% Lidocaine Solution - Nurse 2 - General Ulcer CM Notes Start: 07/14/23 09:52 Freq: Status: Active Protocol: Activity Type Activity Date Activity User E-sign Co-sign Detail Recorded Client Recorded Date Recorded By Document 07/14/23 10:04 Laptop 07/14/23 10:06 07/14/23 10:04 Wound Center Nurse 2 -Time 10:05 -Correct Patient Yes -Correct Side, Site, Position Yes -Correct Procedure Yes -Procedure Performed Yes -Type of Procedure Debridement -Clinical Debridement Muscle / Fascia -Tissue Removed Muscle -Post Debridement (cm) - Length 7.1 -Post Debridement (cm) - Width 3.3 -Post Debridement (cm) - Depth 2.5 -Total Square (Post) (cm) 23.43 -Area of Debridement (cm) - Length 7.1 -Area of Debridement (cm) - Width 3.3 -Total Square (Area) (cm) 23.43 -Tunneling No -Undermining/Tunneling No -Circular Undermining No -Wound/Ulcer Outcome Not Healed -Ulcer Cleansing Rinsed/ Irrigated with Saline -Foul Odor after Cleansing No -Bioengineered Tissue No -Bleeding Controlled with Pressure -Treatment Response Procedure Tolerated Well -Offloading No -Debridement - Muscle / Fascia, 1st Yes 20sq cm -Debridement, Muscle/Fascia, ea addt'l 1 20sq cm or part thereof Pain Scale: 0-10 Numeric Is Patient Pain Free? Yes - Nurse 3 - General Ulcer D/C NN Start: 07/14/23 09:52 Freq: Status: Active Protocol: Activity Type Activity Date Activity User E-sign Co-sign Detail Recorded Client Recorded Date Recorded By Document 07/14/23 10:18 KW Desktop 07/14/23 10:19 KW 07/14/23 10:18 Wound Care Center Nurse 3 #1 Sacral -Primary Dressing Applied Hysept ($) -Primary Dressing Covered/Secured with Dry Gauze, Secured with Tape Pain Scale: 0-10 Numeric Is Patient Pain Free? 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 No bone seen. No hardware seen. Her ulcer has continued to improve with the Dakin's moistened gauze dressing changes. Wound care - Discontinue the wound VAC. Continue the Dakin's 0.25% moistened gauze covered with ABD daily. At the time of the dressing change, the wound is to be cleansed with antibacterial soap and rinsed with water. Instructed her to send the wound VAC back. Place moisturizer or aquaphor on the nia wound to help with the dryness. Two sets of wound cultures were obtained during surgery on 05/08/23. The first set was of the purulent drainage and was positive for Escherichia coli, Enterococcus faecalis and Bacteroides fragilis. The second set of operative cultures were positive for MRSA, Enterococcus faecalis, Anaerobic cocci, and Bacteroides fragilis. Infectious disease was consulted while she was admitted. She was sent home on Doxycycline and Augmentin. Encourage nutritional supplementation with protein to help the healing process. Follow up one week.
[2023-07-21 09:50] VITALS: BP 153/68; PULSE 98; RESP 20; TEMP 36.1; BMI 37.9
--- NOTE | 2023-07-21 11:27 | PN.PCM_ITS ---
History of Present Illness Date of Service: 07/21/23 Chief Complaint: Lumbar wound after I&D History of Wound: Patient is a 63 year old female who underwent L4-5, L5-S1 posterior lumbar interbody fusion, decompression, posterior spinal fusion with instrumentation, use of allograft on 04/17/[address] Dominguez for lumbar spinal stenosis. She developed some redness and drainage a couple weeks after surgery. She was taken back to the OR on 05/08/23 for I&D and application of a wound VAC by Dr. Dominguez. Two sets of wound cultures were obtained during surgery. The first set was positive for Escherichia coli, Enterococcus faecalis and Bacteroides fragilis. The second set of operative cultures were positive for MRSA, Enterococcus faecalis, Anaerobic cocci, and Bacteroides fragilis. ID was consulted and treated with Vanc/Cefepime IV in the hospital, she was discharged on Doxycycline and Augmentin. She has [facility] home health to help with her wound VAC dressing changes 3 times per week. She denies any complaints of fever, chills, nausea or vomiting. Her appetite is ok. Progress of Wound: Mid lower back ulcer shows good granulation tissue and is smaller in size. Nia wound has improved with not having the wound VAC drape on her skin. She has been tolerating the Dakin's moistened gauze dressing changes. Objective Data Objective Data Vital Signs: Vital Signs Temp Pulse Resp BP O2 Del Method 97 F L 98 20 H 153/68 H Room Air 07/21/23 09:50 07/21/23 09:50 07/21/23 09:50 07/21/23 09:50 07/14/23 09:54 Oxygen Delivery Method Room Air Weight: 200 lb 14.792 oz Body Mass Index (BMI) 37.9 Charges/Coding Procedures Integumentary 111xxx-113xx: 14080 Jonna musc/fascia 20 sq cm/< (ICD-10 - S31.000A, T81.40xA, Z98.890) Add On Codes: 46624 Jonna musc/fascia add-on ((ICD-10 - S31.000A, T81.40xA, Z98.890)) Debridement Note Debridement Note Wound debrided: #1 Lumbo-sacral area Laterality: Not Applicable Wound Grade/Stage: Grade 3 Type of Debridement: Excisional debridement Anesthesia Used: 5% Lidocaine Gel Depth: Down to and including healthy tissue, in the subcutaneous layer and to muscle (Bone was not seen. Hardware was not seen.) Percentage of wound debrided: 100 Instrument Used: 7mm curette Tissue Removed: Subcutaneous tissue and muscle. Severity: Fat Layer Exposed (Muscle exposed.) Amount of bleeding with debridement: Mild Bleeding Controlled with: Compression and gauze Patient tolerated procedure: Patient tolerated procedure well Post-Debridement Measurements and Additional Note: Post-Debridement Measurements/Treatment WC - Nurse 1 - General Ulcer Assessment Start: 07/14/23 09:52 Freq: Status: Active Protocol: WC.[email or web address] Activity Type Activity Date Activity User E-sign Co-sign Detail Recorded Client Recorded Date Recorded By Document 07/14/23 09:54 KW Desktop 07/14/23 09:59 KW Document 07/21/23 09:50 DL Desktop 07/21/23 09:54 DL 07/14/23 07/21/23 09:54 09:50 WC - Today's Visit Information Type of service Follow-up Visit Follow-up Visit (Physician/TURNING SANDER OPERATOR (Physician/TURNING SANDER OPERATOR ) ) Arrival Mode Ambulatory Ambulatory, Walker Transfer Assistance None Patient Identification Verified (Name & Yes Yes ) Patient Requires Transmission-Based No Precautions Height and Weight Body Mass Index (BMI) 37.9 37.9 BMI Classification Obese Obese Vital Signs Temperature (97.8 F-99.1 F) 98.1 F 97 F L Temperature Source Temporal Temporal Pulse Rate (60-100) 98 98 Pulse Location Monitor Monitor Respiratory Rate (12-18) 18 20 H Respiratory rate source Observation Observation Oxygen Delivery Method Room Air Blood Pressure (90/60-120/80) 161/73 H 153/68 H Blood Pressure Mean (mm Hg) 102 96 Source Monitor Monitor Position Sitting Blood Pressure Location Left Arm History Since Last Visit- (Skip if this is Patient's initial visit) Have you changed medications since your No No last visit? Any new allergies or adverse reactions No No Had a fall/change in ADL's that may No No increase risk of falls Signs or symptoms of abuse and/or No No neglect since last visit Have you been in the hospital since your No No last visit? Has dressing in place as prescribed Yes Yes Has compression in place as prescribed N/A N/A Has offloadiing in place as prescribed N/A Yes Experienced any changes in pain level or No No management Left Footwear Regular Shoe Right Footwear Regular Shoe Pain Scale: 0-10 Numeric Is Patient Pain Free? Yes Yes DESTINEE - Nurse 1 - General Ulcer Measurement Start: 07/14/23 09:52 Freq: Status: Active Protocol: Activity Type Activity Date Activity User E-sign Co-sign Detail Recorded Client Recorded Date Recorded By Document 07/14/23 09:54 KW Desktop 07/14/23 09:59 KW Document 07/21/23 09:50 DL Desktop 07/21/23 09:54 DL 07/14/23 07/21/23 09:54 09:50 Wound Center Nurse 1 #1 Sacral -Current Size (cm) - Length 7.8 7 -Current Size (cm) - Width 3.1 2.8 -Current Size (cm) - Depth 3 2.5 -Total Square Cm 24.18 19.6 -Date of Last Picture (Recall this 07/14/23 field) -Photo Taken Yes -Exudate Amt Small Medium -Exudate Type Serosanguineous Serosanguineous -Wound Margin Distinct, Distinct, Outline Outline Attached Attached -Granulation Amt Large (67-100%) Large (67-100%) -Granulation Quality Red Red -Necrosis Amt None Present (0 %) -Structure Exposed N/A -Texture (Nia-wound Skin Appearance) Assessed Scarring,Rash -Moisture (Nia-wound Skin Appearance) Assessed, No Abnormality Maceration -Color (Nia-wound Skin Appearance) Assessed No Abnormality -Temperature (Nia-wound Skin No Abnormality No Abnormality Appearance) (Pt Warm) (Pt Warm) -Tenderness on Palpation (Nia-wound No Skin Appearance) -Ulcer Cleansing Soap and Water Soap and Water -Foul Odor after Cleansing No -Anesthetic Used 4% Lidocaine 4% Lidocaine Solution Solution DESTINEE - Nurse 2 - General Ulcer CM Notes Start: 07/14/23 09:52 Freq: Status: Active Protocol: Activity Type Activity Date Activity User E-sign Co-sign Detail Recorded Client Recorded Date Recorded By Document 07/14/23 10:04 Laptop 07/14/23 10:06 Document 07/21/23 10:39 Laptop 07/21/23 10:41 07/14/23 07/21/23 10:04 10:39 Wound Center Nurse 2 #1 Sacral -Time 10:05 10:40 -Correct Patient Yes Yes -Correct Side, Site, Position Yes Yes -Correct Procedure Yes Yes -Procedure Performed Yes Yes -Type of Procedure Debridement Debridement -Clinical Debridement Muscle / Fascia Muscle / Fascia -Tissue Removed Muscle Muscle,Fascia -Post Debridement (cm) - Length 7.1 6.7 -Post Debridement (cm) - Width 3.3 3.6 -Post Debridement (cm) - Depth 2.5 2.2 -Total Square (Post) (cm) 23.43 24.12 -Area of Debridement (cm) - Length 7.1 6.7 -Area of Debridement (cm) - Width 3.3 3.6 -Total Square (Area) (cm) 23.43 24.12 -Tunneling No No -Undermining/Tunneling No No -Circular Undermining No No -Wound/Ulcer Outcome Not Healed Not Healed -Ulcer Cleansing Rinsed/ Rinsed/ Irrigated with Irrigated with Saline Saline -Foul Odor after Cleansing No No -Bioengineered Tissue No No -Bleeding Controlled with Pressure Pressure -Treatment Response Procedure Procedure Tolerated Well Tolerated Well -Offloading No No -Debridement - Muscle / Fascia, 1st Yes Yes 20sq cm -Debridement, Muscle/Fascia, ea addt'l 1 1 20sq cm or part thereof Pain Scale: 0-10 Numeric Is Patient Pain Free? Yes Yes - Nurse 3 - General Ulcer D/C NN Start: 07/14/23 09:52 Freq: Status: Active Protocol: Activity Type Activity Date Activity User E-sign Co-sign Detail Recorded Client Recorded Date Recorded By Document 07/14/23 10:18 KW Desktop 07/14/23 10:19 KW 07/14/23 10:18 Wound Care Center Nurse 3 #1 Sacral -Primary Dressing Applied Hysept ($) -Primary Dressing Covered/Secured with Dry Gauze, Secured with Tape Pain Scale: 0-10 Numeric Is Patient Pain Free? 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 No bone seen. No hardware seen. Nia wound has improved with stopping the wound VAC. Wound care - Dakin's 0.25% moistened gauze covered with ABD daily. At the time of the dressing change, the wound is to be cleansed with antibacterial soap and rinsed with water. Place moisturizer or Aquaphor on the nia wound to help with the dryness. Two sets of wound cultures were obtained during surgery on 05/08/23. The first set was of the purulent drainage and was positive for Escherichia coli, Enterococcus faecalis and Bacteroides fragilis. The second set of operative cul tures were positive for MRSA, Enterococcus faecalis, Anaerobic cocci, and Bacteroides fragilis. Infectious disease was consulted while she was admitted. She was sent home on Doxycycline and Augmentin. Encourage nutritional supplementation with protein to help the healing process. She has been drinking [place]. Follow up one week.
[2023-07-28 10:26] VITALS: BP 161/87; PULSE 85; RESP 18; BMI 37.9
--- NOTE | 2023-07-28 12:59 | PCM.WC.PN ---
History of Present Illness Date of Service: 07/28/23 Chief Complaint: Lumbar wound after I&D History of Wound: Patient is a 63 year old female who underwent L4-5, L5-S1 posterior lumbar interbody fusion, decompression, posterior spinal fusion with instrumentation, use of allograft on 04/17/[address] Dominguez for lumbar spinal stenosis. She developed some redness and drainage a couple weeks after surgery. She was taken back to the OR on 05/08/23 for I&D and application of a wound VAC by Dr. Dominguez. Two sets of wound cultures were obtained during surgery. The first set was positive for Escherichia coli, Enterococcus faecalis and Bacteroides fragilis. The second set of operative cultures were positive for MRSA, Enterococcus faecalis, Anaerobic cocci, and Bacteroides fragilis. ID was consulted and treated with Vanc/Cefepime IV in the hospital, she was discharged on Doxycycline and Augmentin. She has [facility] home health to help with her wound VAC dressing changes 3 times per week. She denies any complaints of fever, chills, nausea or vomiting. Her appetite is ok. Progress of Wound: Mid lower back ulcer shows good granulation tissue and is smaller in size, base of the ulcer is beefy pink. Nia wound is clear this week with continuing to not having the wound VAC drape on her skin. She has been tolerating the Dakin's moistened gauze dressing changes. Objective Data Objective Data Vital Signs: Vital Signs Temp Pulse Resp BP O2 Del Method 97 F L 85 18 161/87 H Room Air 07/21/23 09:50 07/28/23 10:26 07/28/23 10:26 07/28/23 10:26 07/28/23 10:26 Oxygen Delivery Method Room Air Weight: 200 lb 14.792 oz Body Mass Index (BMI) 37.9 Charges/Coding Procedures Integumentary 111xxx-113xx: 90117 Jonna musc/fascia 20 sq cm/< (ICD-10 - S31.000A, T81.40xA, Z98.890) Add On Codes: 35132 Jonna musc/fascia add-on ((ICD-10 - S31.000A, T81.40xA, Z98.890)) Debridement Note Debridement Note Wound debrided: #1 Lumbo-sacral area Laterality: Not Applicable Wound Grade/Stage: Grade 3 Type of Debridement: Excisional debridement Anesthesia Used: 5% Lidocaine Gel Depth: Down to and including healthy tissue, in the subcutaneous layer and to muscle (Bone was not seen. Hardware was not seen.) Percentage of wound debrided: 100 Instrument Used: 7mm curette Tissue Removed: Subcutaneous tissue and muscle. Severity: Fat Layer Exposed (Muscle exposed.) Amount of bleeding with debridement: Mild Bleeding Controlled with: Compression and gauze Patient tolerated procedure: Patient tolerated procedure well Post-Debridement Measurements and Additional Note: Post-Debridement Measurements/Treatment - Nurse 1 - General Ulcer Assessment Start: 07/14/23 09:52 Freq: Status: Active Protocol: [email or web address] Activity Type Activity Date Activity User E-sign Co-sign Detail Recorded Client Recorded Date Recorded By Document 07/14/23 09:54 KW Desktop 07/14/23 09:59 KW Document 07/21/23 09:50 DL Desktop 07/21/23 09:54 DL Document 07/28/23 10:26 KW Desktop 07/28/23 10:32 KW 07/14/23 07/21/23 07/28/23 09:54 09:50 10:26 - Today's Visit Information Type of service Follow-up Visit Follow-up Visit Follow-up Visit (Physician/PATHOLOGIST (Physician/PATHOLOGIST (Physician/PATHOLOGIST ) ) ) Arrival Mode Ambulatory Ambulatory, Ambulatory,Cane Walker Transfer Assistance None Accompanied by Patient Identification Verified (Name & Yes Yes Yes ) Patient Requires Transmission-Based No Precautions Height and Weight Body Mass Index (BMI) 37.9 37.9 37.9 BMI Classification Obese Obese Obese Vital Signs Temperature (97.8 F-99.1 F) 98.1 F 97 F L Temperature Source Temporal Temporal Pulse Rate (60-100) 98 98 85 Pulse Location Monitor Monitor Monitor Respiratory Rate (12-18) 18 20 H 18 Respiratory rate source Observation Observation Observation Oxygen Delivery Method Room Air Room Air Blood Pressure (90/60-120/80) 161/73 H 153/68 H 161/87 H Blood Pressure Mean (mm Hg) 102 96 111 Source Monitor Monitor Monitor Position Sitting Sitting Blood Pressure Location Left Arm Left Arm History Since Last Visit- (Skip if this is Patient's initial visit) Have you changed medications since your No No No last visit? Any new allergies or adverse reactions No No No Had a fall/change in ADL's that may No No No increase risk of falls Signs or symptoms of abuse and/or No No No neglect since last visit Have you been in the hospital since your No No No last visit? Has dressing in place as prescribed Yes Yes Yes Has compression in place as prescribed N/A N/A N/A Has offloadiing in place as prescribed N/A Yes N/A Experienced any changes in pain level or No No No management Left Footwear Regular Shoe Regular Shoe Right Footwear Regular Shoe Regular Shoe Pain Scale: 0-10 Numeric Is Patient Pain Free? Yes Yes Yes WC - Nurse 1 - General Ulcer Measurement Start: 07/14/23 09:52 Freq: Status: Active Protocol: Activity Type Activity Date Activity User E-sign Co-sign Detail Recorded Client Recorded Date Recorded By Document 07/14/23 09:54 KW Desktop 07/14/23 09:59 KW Document 07/21/23 09:50 DL Desktop 07/21/23 09:54 DL Document 07/28/23 10:26 KW Desktop 07/28/23 10:32 KW 07/14/23 07/21/23 07/28/23 09:54 09:50 10:26 Wound Center Nurse 1 #1 Sacral -Combined with other wound No -Current Size (cm) - Length 7.8 7 6.4 -Current Size (cm) - Width 3.1 2.8 2.8 -Current Size (cm) - Depth 3 2.5 2.5 -Total Square Cm 24.18 19.6 17.92 -Date of Last Picture (Recall this 07/14/23 07/28/23 field) -Photo Taken Yes Yes -Epithelialization Small 1-33% -Tunneling No -Undermining/Tunneling No -Circular Undermining No -Exudate Amt Small Medium Medium -Exudate Type Serosanguineous Serosanguineous Serosanguineous -Wound Margin Distinct, Distinct, Distinct, Outline Outline Outline Attached Attached Attached -Granulation Amt Large (67-100%) Large (67-100%) Large (67-100%) -Granulation Quality Red Red Red -Slough/Fibrin No -Necrosis Amt None Present (0 None Present (0 %) %) -Structure Exposed N/A -Texture (Nia-wound Skin Appearance) Assessed Scarring,Rash Assessed, Scarring -Moisture (Nia-wound Skin Appearance) Assessed, No Abnormality Assessed Maceration -Color (Nia-wound Skin Appearance) Assessed No Abnormality Assessed -Temperature (Nia-wound Skin No Abnormality No Abnormality No Abnormality Appearance) (Pt Warm) (Pt Warm) (Pt Warm) -Tenderness on Palpation (Nia-wound No No Skin Appearance) -Ulcer Cleansing Soap and Water Soap and Water Soap and Water -Foul Odor after Cleansing No No -Anesthetic Used 4% Lidocaine 4% Lidocaine 4% Lidocaine Solution Solution Solution WC - Nurse 2 - General Ulcer CM Notes Start: 07/14/23 09:52 Freq: Status: Active Protocol: Activity Type Activity Date Activity User E-sign Co-sign Detail Recorded Client Recorded Date Recorded By Document 07/14/23 10:04 [email or web address] Laptop 07/14/23 10:06 Document 07/21/23 10:39 Laptop 07/21/23 10:41 Document 07/28/23 11:16 Laptop 07/28/23 11:19 07/14/23 07/21/23 07/28/23 10:04 10:39 11:16 Wound Center Nurse 2 #1 Sacral -Time 10:05 10:40 11:16 -Correct Patient Yes Yes Yes -Correct Side, Site, Position Yes Yes Yes -Correct Procedure Yes Yes Yes -Procedure Performed Yes Yes Yes -Type of Procedure Debridement Debridement Debridement -Clinical Debridement Muscle / Fascia Muscle / Fascia Muscle / Fascia -Tissue Removed Muscle Muscle,Fascia Muscle,Fascia -Post Debridement (cm) - Length 7.1 6.7 6.4 -Post Debridement (cm) - Width 3.3 3.6 3.5 -Post Debridement (cm) - Depth 2.5 2.2 1.9 -Total Square (Post) (cm) 23.43 24.12 22.40 -Area of Debridement (cm) - Length 7.1 6.7 6.4 -Area of Debridement (cm) - Width 3.3 3.6 3.5 -Total Square (Area) (cm) 23.43 24.12 22.40 -Tunneling No No No -Undermining/Tunneling No No No -Circular Undermining No No No -Wound/Ulcer Outcome Not Healed Not Healed Not Healed -Ulcer Cleansing Rinsed/ Rinsed/ Rinsed/ Irrigated with Irrigated with Irrigated with Saline Saline Saline -Foul Odor after Cleansing No No No -Bioengineered Tissue No No No -Bleeding Controlled with Pressure Pressure Pressure -Treatment Response Procedure Procedure Procedure Tolerated Well Tolerated Well Tolerated Well -Offloading No No No -Debridement - Muscle / Fascia, 1st Yes Yes Yes 20sq cm -Debridement, Muscle/Fascia, ea addt'l 1 1 1 20sq cm or part thereof Pain Scale: 0-10 Numeric Is Patient Pain Free? Yes Yes Yes - Nurse 3 - General Ulcer D/C NN Start: 07/14/23 09:52 Freq: Status: Active Protocol: Activity Type Activity Date Activity User E-sign Co-sign Detail Recorded Client Recorded Date Recorded By Document 07/14/23 10:18 KW Desktop 07/14/23 10:19 KW Document 07/28/23 11:29 DL Desktop 07/28/23 11:30 DL 07/14/23 07/28/23 10:18 11:29 Wound Care Center Nurse 3 #1 Sacral -Ulcer Cleansing Rinsed/ Irrigated with Saline -Foul Odor after Cleansing No -Primary Dressing Applied Hysept ($) -Other Dressing dakins -Primary Dressing Covered/Secured with Dry Gauze, Dry Gauze, Secured with Secured with Tape Tape Treatment Response Procedure Tolerated Well Pain Scale: 0-10 Numeric Is Patient Pain Free? Yes Yes - Visit Discharge Discharge Condition Stable Stable Ambulatory Status Ambulatory,Cane Ambulatory Transportation Private Auto Ambulance Accompanied by family Medication Reconcilliation completed & No provided to patient/care provider Clinical Summary of Care Provided Yes Assessment/Plan Assessment/Plan (1) Skin ulcer of lower back with fat layer exposed: CODE(S): L98.422 - Non-pressure chronic ulcer of back with fat layer exposed (2) Postoperative infection: CODE(S): T81.40XA - Infection following a procedure, unspecified, initial encounter (3) Previous back surgery: CODE(S): Z98.890 - Other specified postprocedural states (4) History of incision and drainage: CODE(S): Z98.890 - Other specified postprocedural states PLAN: Plan Wound shows good granulation tissue. No bone seen. No hardware seen. Nia wound has improved with stopping the wound VAC. Wound care - Dakin's 0.25% moistened gauze covered with ABD daily. At the time of the dressing change, the wound is to be cleansed with antibacterial soap and rinsed with water. Place moisturizer or Aquaphor on the nia wound to help with the dryness. Nia wound has shown much improvement. Two sets of wound cultures were obtained during surgery on 05/08/23. The first set was of the purulent drainage and was positive for Escherichia coli, Enterococcus faecalis and Bacteroides fragilis. The second set of operative cultures were positive for MRSA, Enterococcus faecalis, Anaerobic cocci, and Bacteroides fragilis. Infectious disease was consulted while she was admitted. She was sent home on Doxycycline and Augmentin. Encourage nutritional supplementation with protein to help the healing process. She has been drinking [place]. Follow up one week.
[2023-08-04 09:02] VITALS: BP 144/67; PULSE 91; RESP 16; TEMP 35.9; BMI 37.9
--- NOTE | 2023-08-04 09:35 | PCM.WC.PN ---
History of Present Illness Date of Service: 08/04/23 Chief Complaint: Lumbar wound after I&D History of Wound: Patient is a 63 year old female who underwent L4-5, L5-S1 posterior lumbar interbody fusion, decompression, posterior spinal fusion with instrumentation, use of allograft on 04/17/[address] Dominguez for lumbar spinal stenosis. She developed some redness and drainage a couple weeks after surgery. She was taken back to the OR on 05/08/23 for I&D and application of a wound VAC by Dr. Dominguez. Two sets of wound cultures were obtained during surgery. The first set was positive for Escherichia coli, Enterococcus faecalis and Bacteroides fragilis. The second set of operative cultures were positive for MRSA, Enterococcus faecalis, Anaerobic cocci, and Bacteroides fragilis. ID was consulted and treated with Vanc/Cefepime IV in the hospital, she was discharged on Doxycycline and Augmentin. She has [facility] home health to help with her wound VAC dressing changes 3 times per week. She denies any complaints of fever, chills, nausea or vomiting. Her appetite is ok. Progress of Wound: Mid lower back ulcer shows good granulation tissue and is stable in size, base of the ulcer is beefy pink. Nai wound is clear this week with continuing to not having the wound VAC drape on her skin. She has been tolerating the Dakin's moistened gauze dressing changes. Objective Data Objective Data Vital Signs: Vital Signs Temp Pulse Resp BP O2 Del Method 96.6 F L 91 16 144/67 H Room Air 08/04/23 09:02 08/04/23 09:02 08/04/23 09:02 08/04/23 09:02 08/04/23 09:02 Oxygen Delivery Method Room Air Weight: 200 lb 14.792 oz Body Mass Index (BMI) 37.9 Charges/Coding Procedures Integumentary 111xxx-113xx: 18598 Jonna musc/fascia 20 sq cm/< (ICD-10 - S31.000A, T81.40xA, Z98.890) Add On Codes: 58105 Jonna musc/fascia add-on ((ICD-10 - S31.000A, T81.40xA, Z98.890)) Debridement Note Debridement Note Wound debrided: #1 Lumbo-sacral area Laterality: Not Applicable Wound Grade/Stage: Grade 3 Type of Debridement: Excisional debridement Anesthesia Used: 5% Lidocaine Gel Depth: Down to and including healthy tissue, in the subcutaneous layer and to muscle (Bone was not seen. Hardware was not seen.) Percentage of wound debrided: 100 Instrument Used: 7mm curette Tissue Removed: Subcutaneous tissue and muscle. Severity: Fat Layer Exposed (Muscle exposed.) Amount of bleeding with debridement: Mild Bleeding Controlled with: Compression and gauze Patient tolerated procedure: Patient tolerated procedure well Post-Debridement Measurements and Additional Note: Post-Debridement Measurements/Treatment - Nurse 1 - General Ulcer Assessment Start: 07/14/23 09:52 Freq: Status: Active Protocol: [employer] Activity Type Activity Date Activity User E-sign Co-sign Detail Recorded Client Recorded Date Recorded By Document 07/14/23 09:54 KW Desktop 07/14/23 09:59 KW Document 07/21/23 09:50 DL Desktop 07/21/23 09:54 DL Document 07/28/23 10:26 KW Desktop 07/28/23 10:32 KW Document 08/04/23 09:02 BMF Desktop 08/04/23 09:09 BMF 07/14/23 07/21/23 07/28/23 09:54 09:50 10:26 - Today's Visit Information Type of service Follow-up Visit Follow-up Visit Follow-up Visit (Physician/RETAIL SALES ADVISOR (Physician/RETAIL SALES ADVISOR (Physician/RETAIL SALES ADVISOR ) ) ) Arrival Mode Ambulatory Ambulatory, Ambulatory,Cane Walker Transfer Assistance None Accompanied by Patient Identification Verified (Name & Yes Yes Yes ) Patient Requires Transmission-Based No Precautions Height and Weight Body Mass Index (BMI) 37.9 37.9 37.9 BMI Classification Obese Obese Obese Vital Signs Temperature (97.8 F-99.1 F) 98.1 F 97 F L Temperature Source Temporal Temporal Pulse Rate (60-100) 98 98 85 Pulse Location Monitor Monitor Monitor Respiratory Rate (12-18) 18 20 H 18 Respiratory rate source Observation Observation Observation Oxygen Delivery Method Room Air Room Air Blood Pressure (90/60-120/80) 161/73 H 153/68 H 161/87 H Blood Pressure Mean (mm Hg) 102 96 111 Source Monitor Monitor Monitor Position Sitting Sitting Blood Pressure Location Left Arm Left Arm History Since Last Visit- (Skip if this is Patient's initial visit) Have you changed medications since your No No No last visit? Any new allergies or adverse reactions No No No Had a fall/change in ADL's that may No No No increase risk of falls Signs or symptoms of abuse and/or No No No neglect since last visit Have you been in the hospital since your No No No last visit? Has dressing in place as prescribed Yes Yes Yes Has compression in place as prescribed N/A N/A N/A Has offloadiing in place as prescribed N/A Yes N/A Experienced any changes in pain level or No No No management Left Footwear Regular Shoe Regular Shoe Right Footwear Regular Shoe Regular Shoe Pain Scale: 0-10 Numeric Is Patient Pain Free? Yes Yes Yes 08/04/23 09:02 WC - Today's Visit Information Type of service Follow-up Visit (Physician/RETAIL SALES ADVISOR ) Arrival Mode Ambulatory,Cane Transfer Assistance None Accompanied by Patient Identification Verified (Name & Yes ) Patient Requires Transmission-Based No Precautions Height and Weight Body Mass Index (BMI) 37.9 BMI Classification Obese Vital Signs Temperature (97.8 F-99.1 F) 96.6 F L Temperature Source Temporal Pulse Rate (60-100) 91 Pulse Location Monitor Respiratory Rate (12-18) 16 Respiratory rate source Observation Oxygen Delivery Method Room Air Blood Pressure (90/60-120/80) 144/67 H Blood Pressure Mean (mm Hg) 92 Source Monitor Position Sitting Blood Pressure Location Left Arm History Since Last Visit- (Skip if this is Patient's initial visit) Have you changed medications since your No last visit? Any new allergies or adverse reactions No Had a fall/change in ADL's that may No increase risk of falls Signs or symptoms of abuse and/or No neglect since last visit Have you been in the hospital since your No last visit? Has dressing in place as prescribed Yes Has compression in place as prescribed N/A Has offloadiing in place as prescribed N/A Experienced any changes in pain level or No management Left Footwear Regular Shoe Right Footwear Regular Shoe Pain Scale: 0-10 Numeric Is Patient Pain Free? Yes - Nurse 1 - General Ulcer Measurement Start: 07/14/23 09:52 Freq: Status: Active Protocol: Activity Type Activity Date Activity User E-sign Co-sign Detail Recorded Client Recorded Date Recorded By Document 07/14/23 09:54 KW Desktop 07/14/23 09:59 KW Document 07/21/23 09:50 DL Desktop 07/21/23 09:54 DL Document 07/28/23 10:26 KW Desktop 07/28/23 10:32 KW Document 08/04/23 09:02 BMF Desktop 08/04/23 09:09 BMF 07/14/23 07/21/23 07/28/23 09:54 09:50 10:26 Wound Center Nurse 1 #1 Sacral -Combined with other wound No -Current Size (cm) - Length 7.8 7 6.4 -Current Size (cm) - Width 3.1 2.8 2.8 -Current Size (cm) - Depth 3 2.5 2.5 -Total Square Cm 24.18 19.6 17.92 -Date of Last Picture (Recall this 07/14/23 07/28/23 field) -Photo Taken Yes Yes -Epithelialization Small 1-33% -Tunneling No -Undermining/Tunneling No -Circular Undermining No -Exudate Amt Small Medium Medium -Exudate Type Serosanguineous Serosanguineous Serosanguineous -Wound Margin Distinct, Distinct, Distinct, Outline Outline Outline Attached Attached Attached -Granulation Amt Large (67-100%) Large (67-100%) Large (67-100%) -Granulation Quality Red Red Red -Slough/Fibrin No -Necrosis Amt None Present (0 None Present (0 %) %) -Structure Exposed N/A -Texture (Nia-wound Skin Appearance) Assessed Scarring,Rash Assessed, Scarring -Moisture (Nia-wound Skin Appearance) Assessed, No Abnormality Assessed Maceration -Color (Nia-wound Skin Appearance) Assessed No Abnormality Assessed -Temperature (Nia-wound Skin No Abnormality No Abnormality No Abnormality Appearance) (Pt Warm) (Pt Warm) (Pt Warm) -Tenderness on Palpation (Nia-wound No No Skin Appearance) -Ulcer Cleansing Soap and Water Soap and Water Soap and Water -Foul Odor after Cleansing No No -Anesthetic Used 4% Lidocaine 4% Lidocaine 4% Lidocaine Solution Solution Solution 08/04/23 09:02 Wound Center Nurse 1 #1 Sacral -Combined with other wound No -Current Size (cm) - Length 6.4 -Current Size (cm) - Width 3.2 -Current Size (cm) - Depth 2.9 -Total Square Cm 20.48 -Date of Last Picture (Recall this field) -Photo Taken -Epithelialization Small 1-33% -Tunneling No -Undermining/Tunneling No -Circular Undermining No -Exudate Amt Medium -Exudate Type Serosanguineous -Wound Margin Distinct, Outline Attached -Granulation Amt Large (67-100%) -Granulation Quality Red -Slough/Fibrin No -Necrosis Amt None Present (0 %) -Structure Exposed -Texture (Nia-wound Skin Appearance) Assessed, Scarring -Moisture (Nia-wound Skin Appearance) Assessed -Color (Nia-wound Skin Appearance) Assessed -Temperature (Nia-wound Skin No Abnormality Appearance) (Pt Warm) -Tenderness on Palpation (Nia-wound No Skin Appearance) -Ulcer Cleansing Rinsed/ Irrigated with Saline -Foul Odor after Cleansing No -Anesthetic Used 4% Lidocaine Solution WC - Nurse 2 - General Ulcer CM Notes Start: 07/14/23 09:52 Freq: Status: Active Protocol: Activity Type Activity Date Activity User E-sign Co-sign Detail Recorded Client Recorded Date Recorded By Document 07/14/23 10:04 [employer] Laptop 07/14/23 10:06 [employer] Document 07/21/23 10:39 [employer] Laptop 07/21/23 10:41 [employer] Document 07/28/23 11:16 [employer] Laptop 07/28/23 11:19 [employer] Document 08/04/23 09:23 [employer] Laptop 08/04/23 09:26 [employer] 07/14/23 07/21/23 07/28/23 10:04 10:39 11:16 Wound Center Nurse 2 #1 Sacral -Time 10:05 10:40 11:16 -Correct Patient Yes Yes Yes -Correct Side, Site, Position Yes Yes Yes -Correct Procedure Yes Yes Yes -Procedure Performed Yes Yes Yes -Type of Procedure Debridement Debridement Debridement -Clinical Debridement Muscle / Fascia Muscle / Fascia Muscle / Fascia -Tissue Removed Muscle Muscle,Fascia Muscle,Fascia -Post Debridement (cm) - Length 7.1 6.7 6.4 -Post Debridement (cm) - Width 3.3 3.6 3.5 -Post Debridement (cm) - Depth 2.5 2.2 1.9 -Total Square (Post) (cm) 23.43 24.12 22.40 -Area of Debridement (cm) - Length 7.1 6.7 6.4 -Area of Debridement (cm) - Width 3.3 3.6 3.5 -Total Square (Area) (cm) 23.43 24.12 22.40 -Tunneling No No No -Undermining/Tunneling No No No -Circular Undermining No No No -Wound/Ulcer Outcome Not Healed Not Healed Not Healed -Ulcer Cleansing Rinsed/ Rinsed/ Rinsed/ Irrigated with Irrigated with Irrigated with Saline Saline Saline -Foul Odor after Cleansing No No No -Bioengineered Tissue No No No -Bleeding Controlled with Pressure Pressure Pressure -Treatment Response Procedure Procedure Procedure Tolerated Well Tolerated Well Tolerated Well -Offloading No No No -Debridement - Muscle / Fascia, 1st Yes Yes Yes 20sq cm -Debridement, Muscle/Fascia, ea addt'l 1 1 1 20sq cm or part thereof Pain Scale: 0-10 Numeric Is Patient Pain Free? Yes Yes Yes 08/04/23 09:23 Wound Center Nurse 2 #1 Sacral -Time 09:24 -Correct Patient Yes -Correct Side, Site, Position Yes -Correct Procedure Yes -Procedure Performed Yes -Type of Procedure Debridement -Clinical Debridement Muscle / Fascia -Tissue Removed Muscle,Fascia -Post Debridement (cm) - Length 6.2 -Post Debridement (cm) - Width 4.0 -Post Debridement (cm) - Depth 2.5 -Total Square (Post) (cm) 24.80 -Area of Debridement (cm) - Length 6.2 -Area of Debridement (cm) - Width 4.0 -Total Square (Area) (cm) 24.80 -Tunneling No -Undermining/Tunneling No -Circular Undermining No -Wound/Ulcer Outcome Not Healed -Ulcer Cleansing Rinsed/ Irrigated with Saline -Foul Odor after Cleansing No -Bioengineered Tissue No -Bleeding Controlled with Pressure -Treatment Response Procedure Tolerated Well -Offloading No -Debridement - Muscle / Fascia, 1st Yes 20sq cm -Debridement, Muscle/Fascia, ea addt'l 1 20sq cm or part thereof Pain Scale: 0-10 Numeric Is Patient Pain Free? Yes - Nurse 3 - General Ulcer D/C NN Start: 07/14/23 09:52 Freq: Status: Active Protocol: Activity Type Activity Date Activity User E-sign Co-sign Detail Recorded Client Recorded Date Recorded By Document 07/14/23 10:18 KW Desktop 04/01/24 10:19 KW Document 07/28/23 11:29 DL Desktop 07/28/23 11:30 DL Document 08/04/23 09:33 BMF Desktop 08/04/23 09:34 BMF 07/14/23 07/28/23 08/04/23 10:18 11:29 09:33 Wound Care Center Nurse 3 #1 Sacral -Ulcer Cleansing Rinsed/ Rinsed/ Irrigated with Irrigated with Saline Saline -Foul Odor after Cleansing No No -Primary Dressing Applied Hysept ($) -Other Dressing dakins dakins moist gauze; drsg per dl mingle operator -Primary Dressing Covered/Secured with Dry Gauze, Dry Gauze, Secured with Secured with Secured with Tape Tape Tape -Other Covering abd Treatment Response Procedure Procedure Tolerated Well Tolerated Well Pain Scale: 0-10 Numeric Is Patient Pain Free? 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 No bone seen. No hardware seen. Nia wound is stable. Wound care - Dakin's 0.25% moistened gauze covered with ABD daily. At the time of the dressing change, the wound is to be cleansed with antibacterial soap and rinsed with water. Place moisturizer or Aquaphor on the nia wound to help with the dryness. Nia wound has shown much improvement. Two sets of wound cultures were obtained during surgery on 05/08/23. The first set was of the purulent drainage and was positive for Escherichia coli, Enterococcus faecalis and Bacteroides fragilis. The second set of operative cultures were positive for MRSA, Enterococcus faecalis, Anaerobic cocci, and Bacteroides fragilis. Infectious disease was consulted while she was admitted. She was sent home on Doxycycline and Augmentin. Encourage nutritional supplementation with protein to help the healing process. She has been drinking Jono. Follow up two weeks.
--- NOTE | 2023-08-04 09:43 | WC ---
07/28/2023 LOWER BACK/SACRAL
== END 2023-08-12 23:59 | disposition home or self-care (01) ==
LOC: WC 09:15
PROVIDERS: Referring Provider Orthopaedic Surgery; Visit Provider Nurse Practitioner Family
DX: T81.40XA Infection following a procedure, unspecified, initial encounter (principal); L98.422 Non-pressure chronic ulcer of back with fat layer exposed; Z98.890 Other specified postprocedural states; Z86.14 Personal history of Methicillin resistant Staphylococcus aureus infection
CPT/HCPCS: 11043; 11046

== ENCOUNTER 2023-09-01 09:15 | Outpatient (RCR) | payer OTHER, SELFPAY ==
[2023-08-13 00:15] VITALS: BP 144/67; PULSE 91; RESP 16; TEMP 35.9; BMI 37.9
[2023-08-18 09:02] VITALS: BP 161/65; PULSE 84; RESP 18; TEMP 36.4; BMI 37.9
--- NOTE | 2023-08-18 09:47 | PN.PCM_ITS ---
History of Present Illness Date of Service: 08/18/23 Chief Complaint: Lumbar wound after I&D History of Wound: Patient is a 63 year old female who underwent L4-5, L5-S1 posterior lumbar interbody fusion, decompression, posterior spinal fusion with instrumentation, use of allograft on 04/17/[address] Dominguez for lumbar spinal stenosis. She developed some redness and drainage a couple weeks after surgery. She was taken back to the OR on 05/08/23 for I&D and application of a wound VAC by Dr. Dominguez. Two sets of wound cultures were obtained during surgery. The first set was positive for Escherichia coli, Enterococcus faecalis and Bacteroides fragilis. The second set of operative cultures were positive for MRSA, Enterococcus faecalis, Anaerobic cocci, and Bacteroides fragilis. ID was consulted and treated with Vanc/Cefepime IV in the hospital, she was discharged on Doxycycline and Augmentin. She has [facility] home health to help with her wound VAC dressing changes 3 times per week. She denies any complaints of fever, chills, nausea or vomiting. Her appetite is ok. Progress of Wound: Mid lower back ulcer shows good granulation tissue and is stable in size, base of the ulcer is beefy pink. Nia wound is clear this week with continuing to not having the wound VAC drape on her skin. She has been tolerating the Dakin's moistened gauze dressing changes. She states that the tape is making her skin itchy. Objective Data Objective Data Vital Signs: Vital Signs Temp Pulse Resp BP O2 Del Method 97.5 F L 84 18 161/65 H Room Air 08/18/23 09:02 08/18/23 09:02 08/18/23 09:02 08/18/23 09:02 08/18/23 09:02 Oxygen Delivery Method Room Air Weight: 200 lb 14.792 oz Body Mass Index (BMI) 37.9 Charges/Coding Procedures Integumentary 111xxx-113xx: 77421 Jonna subq tissue 20 sq cm/< Add On Codes: 72115 Jonna subq tissue add-on Debridement Note Debridement Note Wound debrided: #1 Lumbo-sacral area Laterality: Not Applicable Wound Grade/Stage: Grade 3 Type of Debridement: Excisional debridement Anesthesia Used: 5% Lidocaine Gel Depth: Down to and including healthy tissue and in the subcutaneous layer Percentage of wound debrided: 100 Instrument Used: 7mm curette Tissue Removed: Subcutaneous tissue and slough. Severity: Fat Layer Exposed (Muscle exposed.) Amount of bleeding with debridement: Mild Bleeding Controlled with: Compression and gauze Patient tolerated procedure: Patient tolerated procedure well Post-Debridement Measurements and Additional Note: Post-Debridement Measurements/Treatment - Nurse 1 - General Ulcer Assessment Start: 08/18/23 09:02 Freq: Status: Active Protocol: [employer] Activity Type Activity Date Activity User E-sign Co-sign Detail Recorded Client Recorded Date Recorded By Document 08/18/23 09:02 KW Desktop 08/18/23 09:12 KW 08/18/23 09:02 - Today's Visit Information Type of service Follow-up Visit (Physician/RADIOGRAPHIC TECHNOLOGIST ) Arrival Mode Ambulatory,Cane Accompanied by Patient Identification Verified (Name & Yes ) Height and Weight Body Mass Index (BMI) 37.9 BMI Classification Obese Vital Signs Temperature (97.8 F-99.1 F) 97.5 F L Temperature Source Temporal Pulse Rate (60-100) 84 Pulse Location Monitor Respiratory Rate (12-18) 18 Respiratory rate source Observation Oxygen Delivery Method Room Air Blood Pressure (90/60-120/80) 161/65 H Blood Pressure Mean (mm Hg) 97 History Since Last Visit- (Skip if this is Patient's initial visit) Have you changed medications since your No last visit? Any new allergies or adverse reactions No Had a fall/change in ADL's that may No increase risk of falls Signs or symptoms of abuse and/or No neglect since last visit Have you been in the hospital since your No last visit? Has dressing in place as prescribed Yes Has compression in place as prescribed N/A Has offloadiing in place as prescribed N/A Experienced any changes in pain level or No management Left Footwear Other Footwear (Comment) Right Footwear Regular Shoe Pain Scale: 0-10 Numeric Is Patient Pain Free? Yes - Nurse 1 - General Ulcer Measurement Start: 08/18/23 09:02 Freq: Status: Active Protocol: Activity Type Activity Date Activity User E-sign Co-sign Detail Recorded Client Recorded Date Recorded By Document 08/18/23 09:02 KW Desktop 08/18/23 09:12 KW 08/18/23 09:02 Wound Center Nurse 1 #1 Sacral -Current Size (cm) - Length 5.5 -Current Size (cm) - Width 3.2 -Current Size (cm) - Depth 2.5 -Total Square Cm 17.60 -Photo Taken Yes -Granulation Amt Large (67-100%) -Granulation Quality Red -Texture (Nia-wound Skin Appearance) Assessed -Moisture (Nia-wound Skin Appearance) Assessed -Color (Nia-wound Skin Appearance) Assessed -Temperature (Nia-wound Skin No Abnormality Appearance) (Pt Warm) -Ulcer Cleansing Soap and Water -Foul Odor after Cleansing No -Anesthetic Used 4% Lidocaine Solution WC - Nurse 2 - General Ulcer CM Notes Start: 08/18/23 09:02 Freq: Status: Active Protocol: Activity Type Activity Date Activity User E-sign Co-sign Detail Recorded Client Recorded Date Recorded By Document 08/18/23 09:29 GM Desktop 08/18/23 09:32 GM Edit Result 08/18/23 09:29 GM (1) Desktop 08/18/23 09:34 GM (1) #1 Sacral - Clinical Debridement Muscle / Fascia => Subcutaneous - Tissue Removed Muscle => Subcutaneous - Debridement - Subq, 1st 20sq cm => Yes - Debridement - Muscle / Fascia, 1st Yes => 20sq cm - Debridement, Muscle/Fascia, ea addt'l 1 => 20sq cm or part thereof 08/18/23 09:29 Wound Center Nurse 2 -Time 09:29 -Correct Patient Yes -Correct Side, Site, Position Yes -Correct Procedure Yes -Procedure Performed Yes -Type of Procedure Debridement -Clinical Debridement Subcutaneous -Tissue Removed Subcutaneous -Post Debridement (cm) - Length 5.8 -Post Debridement (cm) - Width 3.5 -Post Debridement (cm) - Depth 2.4 -Total Square (Post) (cm) 20.30 -Area of Debridement (cm) - Length 5.8 -Area of Debridement (cm) - Width 3.5 -Total Square (Area) (cm) 20.30 -Tunneling No -Undermining/Tunneling No -Circular Undermining No -Wound/Ulcer Outcome Not Healed -Ulcer Cleansing Rinsed/ Irrigated with Saline -Foul Odor after Cleansing No -Bioengineered Tissue No -Bleeding Controlled with Pressure -Treatment Response Procedure Tolerated Well -Debridement - Subq, 1st 20sq cm Yes Pain Scale: 0-10 Numeric Is Patient Pain Free? Yes - Nurse 3 - General Ulcer D/C NN Start: 08/18/23 09:02 Freq: Status: Active Protocol: Activity Type Activity Date Activity User E-sign Co-sign Detail Recorded Client Recorded Date Recorded By Document 08/18/23 09:42 GM Desktop 08/18/23 09:43 GM 08/18/23 09:42 Wound Care Center Nurse 3 #1 Sacral -Ulcer Cleansing Not Cleansed -Foul Odor after Cleansing No -Other Dressing dakins soaked gauze and abd -Primary Dressing Covered/Secured with Dry Gauze, Secured with Tape Pain Scale: 0-10 Numeric Is Patient Pain Free? 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 No bone seen. No hardware seen. Nia wound is stable. Wound care - Dakin's 0.25% moistened gauze covered with ABD daily. At the time of the dressing change, the wound is to be cleansed with antibacterial soap and rinsed with water. Place moisturizer or Aquaphor on the nia wound to help with the dryness. Nia wound has shown much improvement. Two sets of wound cultures were obtained during surgery on 05/08/23. The first set was of the purulent drainage and was positive for Escherichia coli, Enterococcus faecalis and Bacteroides fragilis. The second set of operative cultures were positive for MRSA, Enterococcus faecalis, Anaerobic cocci, and Bacteroides fragilis. Infectious disease was consulted while she was admitted. She was sent home on Doxycycline and Augmentin. Encourage nutritional supplementation with protein to help the healing process. She has been drinking Jono. Follow up two weeks.
[2023-09-01 09:16] VITALS: BP 148/68; PULSE 99; RESP 20; TEMP 36.1; BMI 37.9
--- NOTE | 2023-09-01 09:55 | PCM.WC.PN ---
History of Present Illness Date of Service: 09/01/23 Chief Complaint: Lumbar wound after I&D History of Wound: Patient is a 63 year old female who underwent L4-5, L5-S1 posterior lumbar interbody fusion, decompression, posterior spinal fusion with instrumentation, use of allograft on 04/17/[address] Dominguez for lumbar spinal stenosis. She developed some redness and drainage a couple weeks after surgery. She was taken back to the OR on 05/08/23 for I&D and application of a wound VAC by Dr. Dominguez. Two sets of wound cultures were obtained during surgery. The first set was positive for Escherichia coli, Enterococcus faecalis and Bacteroides fragilis. The second set of operative cultures were positive for MRSA, Enterococcus faecalis, Anaerobic cocci, and Bacteroides fragilis. ID was consulted and treated with Vanc/Cefepime IV in the hospital, she was discharged on Doxycycline and Augmentin. She has [facility] home health to help with her wound VAC dressing changes 3 times per week. She denies any complaints of fever, chills, nausea or vomiting. Her appetite is ok. Progress of Wound: Mid lower back ulcer shows good granulation tissue and is showing improvement. It is smaller in size. The base of the ulcer is beefy pink. Nia wound remains clear. Objective Data Objective Data Vital Signs: Vital Signs Temp Pulse Resp BP O2 Del Method 97.0 F L 99 20 H 148/68 H Room Air 09/01/23 09:16 09/01/23 09:16 09/01/23 09:16 09/01/23 09:16 08/18/23 09:02 Oxygen Delivery Method Room Air Weight: 200 lb 14.792 oz Body Mass Index (BMI) 37.9 Charges/Coding Procedures Integumentary 111xxx-113xx: 55696 Jonna subq tissue 20 sq cm/< Debridement Note Debridement Note Wound debrided: #1 Lumbo-sacral area Laterality: Not Applicable Wound Grade/Stage: Grade 3 Type of Debridement: Excisional debridement Anesthesia Used: 5% Lidocaine Gel Depth: Down to and including healthy tissue and in the subcutaneous layer Percentage of wound debrided: 100 Instrument Used: 5mm curette Tissue Removed: Subcutaneous tissue and slough. Severity: Fat Layer Exposed (Muscle exposed.) Amount of bleeding with debridement: Mild Bleeding Controlled with: Compression and gauze Patient tolerated procedure: Patient tolerated procedure well Post-Debridement Measurements and Additional Note: Post-Debridement Measurements/Treatment DESTINEE - Nurse 1 - General Ulcer Assessment Start: 08/18/23 09:02 Freq: Status: Active Protocol: RAJEEV Activity Type Activity Date Activity User E-sign Co-sign Detail Recorded Client Recorded Date Recorded By Document 08/18/23 09:02 KW Desktop 08/18/23 09:12 KW Document 09/01/23 09:16 BUDDY [id number] 09/01/23 09:17 BUDDY 08/18/23 09/01/23 09:02 09:16 DESTINEE - Today's Visit Information Type of service Follow-up Visit Follow-up Visit (Physician/ARMHOLE PRESSER (Physician/ARMHOLE PRESSER ) ) Arrival Mode Ambulatory,Cane Ambulatory Accompanied by Patient Identification Verified (Name & Yes Yes ) Patient Requires Transmission-Based No Precautions Height and Weight Body Mass Index (BMI) 37.9 37.9 BMI Classification Obese Obese Vital Signs Temperature (97.8 F-99.1 F) 97.5 F L 97.0 F L Temperature Source Temporal Temporal Pulse Rate (60-100) 84 99 Pulse Location Monitor Monitor Respiratory Rate (12-18) 18 20 H Respiratory rate source Observation Observation Oxygen Delivery Method Room Air Blood Pressure (90/60-120/80) 161/65 H 148/68 H Blood Pressure Mean (mm Hg) 97 94 Source Monitor Position Sitting Blood Pressure Location Left Arm History Since Last Visit- (Skip if this is Patient's initial visit) Have you changed medications since your No No last visit? Any new allergies or adverse reactions No No Had a fall/change in ADL's that may No No increase risk of falls Signs or symptoms of abuse and/or No No neglect since last visit Have you been in the hospital since your No No last visit? Has dressing in place as prescribed Yes Yes Has compression in place as prescribed N/A N/A Has offloadiing in place as prescribed N/A Yes Experienced any changes in pain level or No No management Left Footwear Other Footwear Regular Shoe (Comment) Right Footwear Regular Shoe Regular Shoe Pain Scale: 0-10 Numeric Is Patient Pain Free? Yes Yes DESTINEE De Paz Nurse 1 - General Ulcer Measurement Start: 08/18/23 09:02 Freq: Status: Active Protocol: Activity Type Activity Date Activity User E-sign Co-sign Detail Recorded Client Recorded Date Recorded By Document 08/18/23 09:02 KW Desktop 08/18/23 09:12 KW Document 09/01/23 09:16 JF [id number] 09/01/23 09:17 JF 08/18/23 09/01/23 09:02 09:16 Wound Center Nurse 1 #1 Sacral -Combined with other wound No -Current Size (cm) - Length 5.5 5 -Current Size (cm) - Width 3.2 3 -Current Size (cm) - Depth 2.5 2.7 -Total Square Cm 17.60 15 -Photo Taken Yes No -Epithelialization Small 1-33% -Tunneling No -Undermining/Tunneling No -Circular Undermining No -Exudate Amt Medium -Exudate Type Serosanguineous -Wound Margin Flat & Intact -Granulation Amt Large (67-100%) Large (67-100%) -Granulation Quality Red Red -Slough/Fibrin Yes -Necrosis Amt Small (1-33%) -Necrotic Tissue Type Adherent Slough -Structure Exposed N/A -Texture (Nia-wound Skin Appearance) Assessed Assessed -Moisture (Nia-wound Skin Appearance) Assessed Assessed,Dry/ Scaly -Color (Nia-wound Skin Appearance) Assessed Assessed -Temperature (Nia-wound Skin No Abnormality No Abnormality Appearance) (Pt Warm) (Pt Warm) -Tenderness on Palpation (Nia-wound No Skin Appearance) -Ulcer Cleansing Soap and Water Rinsed/ Irrigated with Saline -Foul Odor after Cleansing No -Anesthetic Used 4% Lidocaine 5% Lidocaine Solution Gel Lower Limb Edema Present NA WC - Nurse 2 - General Ulcer CM Notes Start: 08/18/23 09:02 Freq: Status: Active Protocol: Activity Type Activity Date Activity User E-sign Co-sign Detail Recorded Client Recorded Date Recorded By Document 08/18/23 09:29 GM Desktop 08/18/23 09:32 GM Edit Result 08/18/23 09:29 GM (1) Desktop 08/18/23 09:34 GM Edit Result 08/18/23 09:29 GM (2) [id number] 08/27/23 07:54 GM Document 09/01/23 09:21 DS [id number] 09/01/23 09:26 DS (1) #1 Sacral - Clinical Debridement Muscle / Fascia => Subcutaneous - Tissue Removed Muscle => Subcutaneous - Debridement - Subq, 1st 20sq cm => Yes - Debridement - Muscle / Fascia, 1st Yes => 20sq cm - Debridement, Muscle/Fascia, ea addt'l 1 => 20sq cm or part thereof (2) #1 Sacral - Debridement, SubQ, ea addt'l 20sq cm => 1 or part thereof 08/18/23 09/01/23 09:29 09:21 Wound Center Nurse 2 #1 Sacral -Time : 09:22 -Correct Patient Yes Yes -Correct Side, Site, Position Yes Yes -Correct Procedure Yes Yes -Procedure Performed Yes Yes -Type of Procedure Debridement Debridement -Clinical Debridement Subcutaneous Subcutaneous -Tissue Removed Subcutaneous Subcutaneous -Post Debridement (cm) - Length 5.8 5.5 -Post Debridement (cm) - Width 3.5 3.2 -Post Debridement (cm) - Depth 2.4 2.0 -Total Square (Post) (cm) 20.30 17.60 -Area of Debridement (cm) - Length 5.8 5.5 -Area of Debridement (cm) - Width 3.5 3.2 -Total Square (Area) (cm) 20.30 17.60 -Tunneling No No -Undermining/Tunneling No No -Circular Undermining No No -Wound/Ulcer Outcome Not Healed Not Healed -Ulcer Cleansing Rinsed/ Irrigated with Saline -Foul Odor after Cleansing No -Bioengineered Tissue No -Bleeding Controlled with Pressure Pressure -Treatment Response Procedure Procedure Tolerated Well Tolerated Well -Debridement - Subq, 1st 20sq cm Yes Yes -Debridement, SubQ, ea addt'l 20sq cm 1 or part thereof Pain Scale: 0-10 Numeric Is Patient Pain Free? Yes Yes WC - Nurse 3 - General Ulcer D/C NN Start: 08/18/23 09:02 Freq: Status: Active Protocol: Activity Type Activity Date Activity User E-sign Co-sign Detail Recorded Client Recorded Date Recorded By Document 08/18/23 09:42 GM Desktop 08/18/23 09:43 GM Document 09/01/23 09:32 DL [id number] 09/01/23 09:35 DL 08/18/23 09/01/23 09:42 09:32 Wound Care Center Nurse 3 #1 Sacral -Ulcer Cleansing Not Cleansed Soap and Water -Foul Odor after Cleansing No No -Primary Dressing Applied Aquacel AG 4x4 -Other Dressing dakins soaked gauze and abd -Primary Dressing Covered/Secured with Dry Gauze, Dry Gauze, Secured with Secured with Tape Tape -Other Covering ABD -Aquacel AG 4x4 1 Treatment Response Procedure Tolerated Well Pain Scale: 0-10 Numeric Is Patient Pain Free? 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 No bone seen. No hardware seen. Nia wound is stable. Wound care - Start Aquacel-Ag into the base of the ulcer, place fluffed gauze and top with ABD daily. At the time of the dressing change, the wound is to be cleansed with antibacterial soap and rinsed with water. Two sets of wound cultures were obtained during surgery on 05/08/23. The first set was of the purulent drainage and was positive for Escherichia coli, Enterococcus faecalis and Bacteroides fragilis. The second set of operative cultures were positive for MRSA, Enterococcus faecalis, Anaerobic cocci, and Bacteroides fragilis. Infectious disease was consulted while she was admitted. She was sent home on Doxycycline and Augmentin. Encourage nutritional supplementation with protein to help the healing process. She has been drinking Jono. Follow up three weeks due to the holiday and me being out of the office.
== END 2023-09-12 23:59 | disposition home or self-care (01) ==
LOC: WC 09:15
PROVIDERS: Referring Provider Orthopaedic Surgery; Visit Provider Nurse Practitioner Family
DX: T81.40XA Infection following a procedure, unspecified, initial encounter (principal); L98.422 Non-pressure chronic ulcer of back with fat layer exposed; Y83.8 Other surgical procedures as the cause of abnormal reaction of the patient, or of later complication, without mention of misadventure at the time of the procedure; Z98.890 Other specified postprocedural states; Z79.899 Other long term (current) drug therapy
CPT/HCPCS: 11042; 11043; 11045; 11046

== ENCOUNTER 2023-10-08 14:00 | Outpatient (RCR) | payer OTHER, SELFPAY ==
[2023-09-13 00:32] VITALS: BP 144/67; PULSE 91; RESP 16; TEMP 35.9; BMI 37.9
[2023-09-22 09:15] VITALS: BP 164/68; PULSE 82; RESP 16; TEMP 36.3; BMI 37.9
--- NOTE | 2023-09-22 11:07 | PN.PCM_ITS ---
History of Present Illness Date of Service: 09/22/23 Chief Complaint: Lumbar wound after I&D History of Wound: Patient is a 63 year old female who underwent L4-5, L5-S1 posterior lumbar interbody fusion, decompression, posterior spinal fusion with instrumentation, use of allograft on 04/17/[address] Dominguez for lumbar spinal stenosis. She developed some redness and drainage a couple weeks after surgery. She was taken back to the OR on 05/08/23 for I&D and application of a wound VAC by Dr. Dominguez. Two sets of wound cultures were obtained during surgery. The first set was positive for Escherichia coli, Enterococcus faecalis and Bacteroides fragilis. The second set of operative cultures were positive for MRSA, Enterococcus faecalis, Anaerobic cocci, and Bacteroides fragilis. ID was consulted and treated with Vanc/Cefepime IV in the hospital, she was discharged on Doxycycline and Augmentin. She has [facility] home health to help with her wound VAC dressing changes 3 times per week. She denies any complaints of fever, chills, nausea or vomiting. Her appetite is ok. Progress of Wound: Mid lower back ulcer shows good granulation tissue and is showing improvement. It is smaller in size. The base of the ulcer is beefy pink. Nia wound remains clear. Objective Data Objective Data Vital Signs: Vital Signs Temp Pulse Resp BP O2 Del Method 97.4 F L 82 16 164/68 H Room Air 09/22/23 09:15 09/22/23 09:15 09/22/23 09:15 09/22/23 09:15 09/22/23 09:15 Oxygen Delivery Method Room Air Weight: 200 lb 14.792 oz Body Mass Index (BMI) 37.9 Charges/Coding Procedures Integumentary 111xxx-113xx: 96508 Jonna subq tissue 20 sq cm/< Debridement Note Debridement Note Wound debrided: #1 Lumbo-sacral area Laterality: Not Applicable Wound Grade/Stage: Grade 3 Type of Debridement: Excisional debridement Anesthesia Used: 5% Lidocaine Gel Depth: Down to and including healthy tissue and in the subcutaneous layer Percentage of wound debrided: 100 Instrument Used: 5mm curette Tissue Removed: Subcutaneous tissue and slough. Severity: Fat Layer Exposed (Muscle exposed.) Amount of bleeding with debridement: Mild Bleeding Controlled with: Compression and gauze Patient tolerated procedure: Patient tolerated procedure well Post-Debridement Measurements and Additional Note: Post-Debridement Measurements/Treatment DESTINEE - Nurse 1 - General Ulcer Assessment Start: 09/22/23 09:14 Freq: Status: Active Protocol: RAJEEV Activity Type Activity Date Activity User E-sign Co-sign Detail Recorded Client Recorded Date Recorded By Document 09/22/23 09:15 CP wound center 09/22/23 09:16 09/22/23 09:15 WC - Today's Visit Information Type of service 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 ) Arrival Mode Ambulatory Accompanied by Patient Identification Verified (Name & Yes ) Height and Weight Body Mass Index (BMI) 37.9 BMI Classification Obese Vital Signs Temperature (97.8 F-99.1 F) 97.4 F L Temperature Source Temporal Pulse Rate (60-100) 82 Pulse Location Monitor Respiratory Rate (12-18) 16 Respiratory rate source Observation Oxygen Delivery Method Room Air Blood Pressure (90/60-120/80) 164/68 H Blood Pressure Mean (mm Hg) 100 Source Monitor Position Semi-Fowlers Blood Pressure Location Left Arm History Since Last Visit- (Skip if this is Patient's initial visit) Have you changed medications since your No last visit? Any new allergies or adverse reactions No Had a fall/change in ADL's that may No increase risk of falls Signs or symptoms of abuse and/or No neglect since last visit Have you been in the hospital since your No last visit? Has dressing in place as prescribed Yes Has compression in place as prescribed N/A Has offloadiing in place as prescribed N/A Experienced any changes in pain level or No management Left Footwear Regular Shoe Right Footwear Regular Shoe Pain Scale: 0-10 Numeric Is Patient Pain Free? Yes - Nurse 1 - General Ulcer Measurement Start: 09/22/23 09:14 Freq: Status: Active Protocol: Activity Type Activity Date Activity User E-sign Co-sign Detail Recorded Client Recorded Date Recorded By Document 09/22/23 09:15 CP wound center 09/22/23 09:16 CP 09/22/23 09:15 Wound Center Nurse 1 #1 Sacral -Current Size (cm) - Length 3.6 -Current Size (cm) - Width 1.5 -Current Size (cm) - Depth 0.6 -Total Square Cm 5.40 -Date of Last Picture (Recall this 06/10/24 field) -Exudate Amt Small -Exudate Type Serosanguineous -Wound Margin Distinct, Outline Attached -Granulation Amt Medium (34-66%) -Granulation Quality Red -Necrosis Amt Medium (34-66%) -Necrotic Tissue Type Adherent Slough -Texture (Nia-wound Skin Appearance) Assessed -Moisture (Nia-wound Skin Appearance) Assessed -Color (Nia-wound Skin Appearance) Assessed -Temperature (Nia-wound Skin No Abnormality Appearance) (Pt Warm) -Tenderness on Palpation (Nia-wound No Skin Appearance) -Ulcer Cleansing Rinsed/ Irrigated with Saline -Foul Odor after Cleansing No -Anesthetic Used 5% Lidocaine Gel - Nurse 2 - General Ulcer CM Notes Start: 09/22/23 09:14 Freq: Status: Active Protocol: Activity Type Activity Date Activity User E-sign Co-sign Detail Recorded Client Recorded Date Recorded By Document 09/22/23 09:51 [facility] [id number] 09/22/23 09:54 [facility] 09/22/23 09:51 Wound Center Nurse 2 -Time 09:51 -Correct Patient Yes -Correct Side, Site, Position Yes -Correct Procedure Yes -Procedure Performed Yes -Type of Procedure Debridement -Clinical Debridement Subcutaneous -Tissue Removed Subcutaneous -Post Debridement (cm) - Length 4.5 -Post Debridement (cm) - Width 2 -Post Debridement (cm) - Depth 1.3 -Total Square (Post) (cm) 9.0 -Area of Debridement (cm) - Length 4.5 -Area of Debridement (cm) - Width 2 -Total Square (Area) (cm) 9.0 -Tunneling No -Undermining/Tunneling No -Circular Undermining No -Wound/Ulcer Outcome Not Healed -Ulcer Cleansing Rinsed/ Irrigated with Saline -Foul Odor after Cleansing No -Bioengineered Tissue No -Bleeding Controlled with Pressure -Treatment Response Procedure Tolerated Well -Debridement - Subq, 1st 20sq cm Yes Pain Scale: 0-10 Numeric Is Patient Pain Free? Yes - Nurse 3 - General Ulcer D/C NN Start: 09/22/23 09:14 Freq: Status: Active Protocol: Activity Type Activity Date Activity User E-sign Co-sign Detail Recorded Client Recorded Date Recorded By Document 09/22/23 10:07 wound center 09/22/23 10:08 09/22/23 10:07 Wound Care Center Nurse 3 #1 Sacral -Ulcer Cleansing Rinsed/ Irrigated with Saline -Primary Dressing Applied Aquacel AG 4x4 -Primary Dressing Covered/Secured with Dry Gauze, Secured with Tape -Aquacel AG 4x4 1 Pain Scale: 0-10 Numeric Is Patient Pain Free? 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 No bone seen. No hardware seen. Nia wound is stable. Wound care - Start Aquacel-Ag into the base of the ulcer, place fluffed gauze and top with ABD daily. At the time of the dressing change, the wound is to be cleansed with antibacterial soap and rinsed with water. Two sets of wound cultures were obtained during surgery on 05/08/23. The first set was of the purulent drainage and was positive for Escherichia coli, Enterococcus faecalis and Bacteroides fragilis. The second set of operative cultures were positive for MRSA, Enterococcus faecalis, Anaerobic cocci, and Bacteroides fragilis. Infectious disease was consulted while she was admitted. She was sent home on Doxycycline and Augmentin. Encourage nutritional supplementation with protein to help the healing process. She has been drinking Jono. Follow up one week.
[2023-09-29 08:56] VITALS: BP 144/58; PULSE 84; RESP 18; BMI 37.9
--- NOTE | 2023-09-29 09:57 | PN.PCM_ITS ---
History of Present Illness Date of Service: 09/29/23 Chief Complaint: Lumbar wound after I&D History of Wound: Patient is a 63 year old female who underwent L4-5, L5-S1 posterior lumbar interbody fusion, decompression, posterior spinal fusion with instrumentation, use of allograft on 04/17/[address] Dominguez for lumbar spinal stenosis. She developed some redness and drainage a couple weeks after surgery. She was taken back to the OR on 05/08/23 for I&D and application of a wound VAC by Dr. Dominguez. Two sets of wound cultures were obtained during surgery. The first set was positive for Escherichia coli, Enterococcus faecalis and Bacteroides fragilis. The second set of operative cultures were positive for MRSA, Enterococcus faecalis, Anaerobic cocci, and Bacteroides fragilis. ID was consulted and treated with Vanc/Cefepime IV in the hospital, she was discharged on Doxycycline and Augmentin. She has [facility] home health to help with her wound VAC dressing changes 3 times per week. She denies any complaints of fever, chills, nausea or vomiting. Her appetite is ok. Progress of Wound: Mid lower back ulcer is beefy pink. It is stable in size, not showing much policy change clerk the past couple weeks. Nia wound is still clear. A wound culture was obtained today.? A positive culture will necessitate antibiotic therapy. Objective Data Objective Data Vital Signs: Vital Signs Temp Pulse Resp BP O2 Del Method 97.4 F L 84 18 144/58 H Room Air 09/22/23 09:15 09/29/23 08:56 09/29/23 08:56 09/29/23 08:56 09/29/23 08:56 Oxygen Delivery Method Room Air Weight: 200 lb 14.792 oz Body Mass Index (BMI) 37.9 Charges/Coding Procedures Integumentary 111xxx-113xx: 64874 Jonna subq tissue 20 sq cm/< Debridement Note Debridement Note Wound debrided: #1 Lumbo-sacral area Laterality: Not Applicable Wound Grade/Stage: Grade 3 Type of Debridement: Excisional debridement Anesthesia Used: 5% Lidocaine Gel Depth: Down to and including healthy tissue and in the subcutaneous layer Percentage of wound debrided: 100 Instrument Used: 5mm curette Tissue Removed: Subcutaneous tissue and slough. Severity: Fat Layer Exposed (Muscle exposed.) Amount of bleeding with debridement: Mild Bleeding Controlled with: Compression and gauze Patient tolerated procedure: Patient tolerated procedure well Post-Debridement Measurements and Additional Note: Post-Debridement Measurements/Treatment WC - Nurse 1 - General Ulcer Assessment Start: 09/22/23 09:14 Freq: Status: Active Protocol: RAJEEV Activity Type Activity Date Activity User E-sign Co-sign Detail Recorded Client Recorded Date Recorded By Document 09/22/23 09:15 CP wound center 09/22/23 09:16 CP Document 09/29/23 08:56 KW l 09/29/23 09:04 KW 09/22/23 09/29/23 09:15 08:56 WC - Today's Visit Information Type of service Follow-up Visit Follow-up Visit (Physician/INTERFACE ANALYST (Physician/INTERFACE ANALYST ) ) Arrival Mode Ambulatory Ambulatory,Cane Accompanied by Patient Identification Verified (Name & Yes Yes ) Height and Weight Body Mass Index (BMI) 37.9 37.9 BMI Classification Obese Obese Vital Signs Temperature (97.8 F-99.1 F) 97.4 F L Temperature Source Temporal Pulse Rate (60-100) 82 84 Pulse Location Monitor Monitor Respiratory Rate (12-18) 16 18 Respiratory rate source Observation Observation Oxygen Delivery Method Room Air Room Air Blood Pressure (90/60-120/80) 164/68 H 144/58 H Blood Pressure Mean (mm Hg) 100 86 Source Monitor Monitor Position Semi-Fowlers Sitting Blood Pressure Location Left Arm Left Arm History Since Last Visit- (Skip if this is Patient's initial visit) Have you changed medications since your No No last visit? Any new allergies or adverse reactions No No Had a fall/change in ADL's that may No No increase risk of falls Signs or symptoms of abuse and/or No No neglect since last visit Have you been in the hospital since your No No last visit? Has dressing in place as prescribed Yes Yes Has compression in place as prescribed N/A N/A Has offloadiing in place as prescribed N/A N/A Experienced any changes in pain level or No No management Left Footwear Regular Shoe Regular Shoe Right Footwear Regular Shoe Regular Shoe Pain Scale: 0-10 Numeric Is Patient Pain Free? Yes Yes DESTINEE - Nurse 1 - General Ulcer Measurement Start: 09/22/23 09:14 Freq: Status: Active Protocol: Activity Type Activity Date Activity User E-sign Co-sign Detail Recorded Client Recorded Date Recorded By Document 09/22/23 09:15 CP wound center 09/22/23 09:16 CP Document 09/29/23 08:56 KW l 09/29/23 09:04 KW 09/22/23 09/29/23 09:15 08:56 Wound Center Nurse 1 #1 Sacral -Current Size (cm) - Length 3.6 4.7 -Current Size (cm) - Width 1.5 1.3 -Current Size (cm) - Depth 0.6 2.2 -Total Square Cm 5.40 6.11 -Date of Last Picture (Recall this 09/22/23 09/29/23 field) -Exudate Amt Small Small -Exudate Type Serosanguineous Serosanguineous -Wound Margin Distinct, Distinct, Outline Outline Attached Attached -Granulation Amt Medium (34-66%) Large (67-100%) -Granulation Quality Red Red -Necrosis Amt Medium (34-66%) -Necrotic Tissue Type Adherent Slough -Texture (Nia-wound Skin Appearance) Assessed Assessed -Moisture (Nia-wound Skin Appearance) Assessed Assessed,Dry/ Scaly -Color (Nia-wound Skin Appearance) Assessed Assessed, Erythema -Temperature (Nia-wound Skin No Abnormality No Abnormality Appearance) (Pt Warm) (Pt Warm) -Tenderness on Palpation (Nia-wound No No Skin Appearance) -Ulcer Cleansing Rinsed/ Rinsed/ Irrigated with Irrigated with Saline Saline -Foul Odor after Cleansing No No -Anesthetic Used 5% Lidocaine 4% Lidocaine Gel Solution WC - Nurse 2 - General Ulcer CM Notes Start: 09/22/23 09:14 Freq: Status: Active Protocol: Activity Type Activity Date Activity User E-sign Co-sign Detail Recorded Client Recorded Date Recorded By Document 09/22/23 09:51 [facility] [id number] 09/22/23 09:54 [facility] Document 09/29/23 09:28 [id number] 09/29/23 09:31 09/22/23 09/29/23 09:51 09:28 Wound Center Nurse 2 #1 Sacral -Time 09:51 09:29 -Correct Patient Yes Yes -Correct Side, Site, Position Yes Yes -Correct Procedure Yes Yes -Procedure Performed Yes Yes -Type of Procedure Debridement Debridement -Clinical Debridement Subcutaneous Subcutaneous -Tissue Removed Subcutaneous Subcutaneous -Post Debridement (cm) - Length 4.5 4.7 -Post Debridement (cm) - Width 2 2.2 -Post Debridement (cm) - Depth 1.3 1.4 -Total Square (Post) (cm) 9.0 10.34 -Area of Debridement (cm) - Length 4.5 4.7 -Area of Debridement (cm) - Width 2 2.2 -Total Square (Area) (cm) 9.0 10.34 -Tunneling No No -Undermining/Tunneling No No -Circular Undermining No No -Wound/Ulcer Outcome Not Healed Not Healed -Ulcer Cleansing Rinsed/ Rinsed/ Irrigated with Irrigated with Saline Saline -Foul Odor after Cleansing No No -Bioengineered Tissue No No -Bleeding Controlled with Pressure Pressure -Treatment Response Procedure Procedure Tolerated Well Tolerated Well -Offloading No -Debridement - Subq, 1st 20sq cm Yes Yes Pain Scale: 0-10 Numeric Is Patient Pain Free? Yes Yes - Nurse 3 - General Ulcer D/C NN Start: 09/22/23 09:14 Freq: Status: Active Protocol: Activity Type Activity Date Activity User E-sign Co-sign Detail Recorded Client Recorded Date Recorded By Document 09/22/23 10:07 KW wound center 09/22/23 10:08 KW Document 09/29/23 09:38 KW l 09/29/23 09:39 KW 09/22/23 09/29/23 10:07 09:38 Wound Care Center Nurse 3 #1 Sacral -Ulcer Cleansing Rinsed/ Irrigated with Saline -Primary Dressing Applied Aquacel AG 4x4 -Other Dressing dakins soaked gauze -Primary Dressing Covered/Secured with Dry Gauze, Dry Gauze, Secured with Secured with Tape Tape -Aquacel AG 4x4 1 Pain Scale: 0-10 Numeric Is Patient Pain Free? 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 No bone seen. No hardware seen. Nia wound is stable. Wound care - Stop Aquacel-Ag and restart Dakin's 0.25% moistened gauze into the base of the ulcer and top with ABD daily. At the time of the dressing change, the wound is to be cleansed with antibacterial soap and rinsed with water. Two sets of wound cultures were obtained during surgery on 05/08/23. The first set was of the purulent drainage and was positive for Escherichia coli, Enterococcus faecalis and Bacteroides fragilis. The second set of operative cultures were positive for MRSA, Enterococcus faecalis, Anaerobic cocci, and Bacteroides fragilis. Infectious disease was consulted while she was admitted. She was sent home on Doxycycline and Augmentin. A wound culture was obtained today.? A positive culture will necessitate antibiotic therapy. Encourage nutritional supplementation with protein to help the healing process. She has been drinking Jono. Follow up one week.
--- NOTE | 2023-10-01 13:35 | WC ---
Patient called requesting what her wound cultures are from Friday's test. Spoke to Anu Garcia NP who states the wound culture results are not back yet and can take up to 5 days with sensitivities. I called patient back and received her voicemail and explained to her that the culture results will take a few more days and she will be notified of results. In the meantime, patient is using 0.25% Dakin's gauze daily which will aid in fighting any bacteria if present in the wound. I explained to her that if she has increase drainage that she can increase her changes to twice a day and asked her to call the nursing line at [phone] to let us know she received the message.
[2023-10-08 14:25] VITALS: BP 163/67; PULSE 90; RESP 18; TEMP 36.3; BMI 37.9
--- NOTE | 2023-10-08 14:52 | PN.PCM_ITS ---
History of Present Illness Date of Service: 10/08/23 Chief Complaint: Lumbar wound after I&D History of Wound: Patient is a 63 year old female who underwent L4-5, L5-S1 posterior lumbar interbody fusion, decompression, posterior spinal fusion with instrumentation, use of allograft on 04/17/[address] Dominguez for lumbar spinal stenosis. She developed some redness and drainage a couple weeks after surgery. She was taken back to the OR on 05/08/23 for I&D and application of a wound VAC by Dr. Dominguez. Two sets of wound cultures were obtained during surgery. The first set was positive for Escherichia coli, Enterococcus faecalis and Bacteroides fragilis. The second set of operative cultures were positive for MRSA, Enterococcus faecalis, Anaerobic cocci, and Bacteroides fragilis. ID was consulted and treated with Vanc/Cefepime IV in the hospital, she was discharged on Doxycycline and Augmentin. Wound culture obtained 09/29/23 which was positive for Staphylococcus aureus and Corynebacterium striatum. She was placed on Augmentin for the positive cultures. She denies any complaints of fever, chills, nausea or vomiting. Her appetite is ok. Progress of Wound: Mid lower back ulcer is beefy pink. It is stable in size, nia wound is clear. She states that the Dakin's moistened gauze dressings are burning at the time of the dressing change. Objective Data Objective Data Vital Signs: Vital Signs Temp Pulse Resp BP O2 Del Method 97.4 F L 90 18 163/67 H Room Air 10/08/23 14:25 10/08/23 14:25 10/08/23 14:25 10/08/23 14:25 09/29/23 08:56 Oxygen Delivery Method Room Air Weight: 200 lb 14.792 oz Body Mass Index (BMI) 37.9 Lab / Micro Data Micro: Microbiology 09/29/23 09:34 Ulcer, Decubitus - Other Gram Stain - Final 09/29/23 09:34 Ulcer, Decubitus - Other Wound Culture - Final Staphylococcus aureus Corynebacterium striatum 09/29/23 09:34 Ulcer, Decubitus - Other Anaerobic Culture - Final No anaerobic bacteria isolated. Charges/Coding Procedures Integumentary 111xxx-113xx: 99137 Jonna subq tissue 20 sq cm/< Debridement Note Debridement Note Wound debrided: #1 Lumbo-sacral area Laterality: Not Applicable Wound Grade/Stage: Grade 3 Type of Debridement: Excisional debridement Anesthesia Used: 5% Lidocaine Gel Depth: Down to and including healthy tissue and in the subcutaneous layer Percentage of wound debrided: 100 Instrument Used: 5mm curette Tissue Removed: Subcutaneous tissue and slough. Severity: Fat Layer Exposed Amount of bleeding with debridement: Mild Bleeding Controlled with: Compression and gauze Patient tolerated procedure: Patient tolerated procedure well Post-Debridement Measurements and Additional Note: Post-Debridement Measurements/Treatment - Nurse 1 - General Ulcer Assessment Start: 09/22/23 09:14 Freq: Status: Active Protocol: RAJEEV Activity Type Activity Date Activity User E-sign Co-sign Detail Recorded Client Recorded Date Recorded By Document 09/22/23 09:15 CP wound center 09/22/23 09:16 CP Document 09/29/23 08:56 KW l 09/29/23 09:04 KW Document 10/08/23 14:25 RB wound 10/08/23 14:27 RB 09/22/23 09/29/23 10/08/23 09:15 08:56 14:25 - Today's Visit Information Type of service Follow-up Visit Follow-up Visit Follow-up Visit (Physician/BOAT DETAILER (Physician/BOAT DETAILER (Physician/BOAT DETAILER ) ) ) Arrival Mode Ambulatory Ambulatory,Cane Ambulatory Transfer Assistance Transfer Board Accompanied by Patient Identification Verified (Name & Yes Yes Yes ) Patient Requires Transmission-Based No Precautions Height and Weight Body Mass Index (BMI) 37.9 37.9 37.9 BMI Classification Obese Obese Obese Vital Signs Temperature (97.8 F-99.1 F) 97.4 F L 97.4 F L Temperature Source Temporal Temporal Pulse Rate (60-100) 82 84 90 Pulse Location Monitor Monitor Monitor Respiratory Rate (12-18) 16 18 18 Respiratory rate source Observation Observation Observation Oxygen Delivery Method Room Air Room Air Blood Pressure (90/60-120/80) 164/68 H 144/58 H 163/67 H Blood Pressure Mean (mm Hg) 100 86 99 Source Monitor Monitor Monitor Position Semi-Fowlers Sitting Semi-Fowlers Blood Pressure Location Left Arm Left Arm Left Arm History Since Last Visit- (Skip if this is Patient's initial visit) Have you changed medications since your No No No last visit? Any new allergies or adverse reactions No No No Had a fall/change in ADL's that may No No No increase risk of falls Signs or symptoms of abuse and/or No No No neglect since last visit Have you been in the hospital since your No No No last visit? Has dressing in place as prescribed Yes Yes Yes Has compression in place as prescribed N/A N/A No Has offloadiing in place as prescribed N/A N/A No Experienced any changes in pain level or No No No management Left Footwear Regular Shoe Regular Shoe Right Footwear Regular Shoe Regular Shoe Pain Scale: 0-10 Numeric Is Patient Pain Free? Yes Yes No lumbar -Description Aching -Intensity 5 -Duration (hours) Chronic -Pain Behavior Withdrawal from Touch -Pain Aggravating Factors Walking -Alleviating Factors/Interventions None WC - Nurse 1 - General Ulcer Measurement Start: 09/22/23 09:14 Freq: Status: Active Protocol: Activity Type Activity Date Activity User E-sign Co-sign Detail Recorded Client Recorded Date Recorded By Document 09/22/23 09:15 CP wound center 09/22/23 09:16 CP Document 09/29/23 08:56 KW l 09/29/23 09:04 KW Document 10/08/23 14:25 RB wound 10/08/23 14:27 RB 09/22/23 09/29/23 10/08/23 09:15 08:56 14:25 Wound Center Nurse 1 #1 Sacral -Combined with other wound No -Current Size (cm) - Length 3.6 4.7 5.9 -Current Size (cm) - Width 1.5 1.3 2.8 -Current Size (cm) - Depth 0.6 2.2 1.5 -Total Square Cm 5.40 6.11 16.52 -Date of Last Picture (Recall this 09/22/23 09/29/23 field) -Tunneling No -Undermining/Tunneling No -Circular Undermining No -Exudate Amt Small Small Large -Exudate Type Serosanguineous Serosanguineous Serosanguineous -Wound Margin Distinct, Distinct, Distinct, Outline Outline Outline Attached Attached Attached -Granulation Amt Medium (34-66%) Large (67-100%) Large (67-100%) -Granulation Quality Red Red Purple Sage,Red -Slough/Fibrin Yes -Necrosis Amt Medium (34-66%) Small (1-33%) -Necrotic Tissue Type Adherent Slough Adherent Slough -Structure Exposed N/A -Texture (Nia-wound Skin Appearance) Assessed Assessed Assessed -Moisture (Nia-wound Skin Appearance) Assessed Assessed,Dry/ Assessed Scaly -Color (Nia-wound Skin Appearance) Assessed Assessed, Assessed Erythema -Temperature (Nia-wound Skin No Abnormality No Abnormality No Abnormality Appearance) (Pt Warm) (Pt Warm) (Pt Warm) -Tenderness on Palpation (Nia-wound No No No Skin Appearance) -Ulcer Cleansing Rinsed/ Rinsed/ Wound Cleanser Irrigated with Irrigated with Saline Saline -Foul Odor after Cleansing No No No -Anesthetic Used 5% Lidocaine 4% Lidocaine 4% Lidocaine Gel Solution Solution WC - Nurse 2 - General Ulcer CM Notes Start: 09/22/23 09:14 Freq: Status: Active Protocol: Activity Type Activity Date Activity User E-sign Co-sign Detail Recorded Client Recorded Date Recorded By Document 09/22/23 09:51 [facility] [id number] 09/22/23 09:54 [facility] Document 09/29/23 09:28 [id number] 09/29/23 09:31 Document 10/08/23 14:45 [facility] 10/08/23 14:46 09/22/23 09/29/23 10/08/23 09:51 09:28 14:45 Wound Center Nurse 2 #1 Sacral -Time 09:51 09:29 14:45 -Correct Patient Yes Yes Yes -Correct Side, Site, Position Yes Yes Yes -Correct Procedure Yes Yes Yes -Procedure Performed Yes Yes Yes -Type of Procedure Debridement Debridement Debridement -Clinical Debridement Subcutaneous Subcutaneous Subcutaneous -Tissue Removed Subcutaneous Subcutaneous Subcutaneous -Post Debridement (cm) - Length 4.5 4.7 6.7 -Post Debridement (cm) - Width 2 2.2 2.6 -Post Debridement (cm) - Depth 1.3 1.4 1.8 -Total Square (Post) (cm) 9.0 10.34 17.42 -Area of Debridement (cm) - Length 4.5 4.7 6.7 -Area of Debridement (cm) - Width 2 2.2 2.6 -Total Square (Area) (cm) 9.0 10.34 17.42 -Tunneling No No No -Undermining/Tunneling No No No -Circular Undermining No No No -Wound/Ulcer Outcome Not Healed Not Healed Not Healed -Ulcer Cleansing Rinsed/ Rinsed/ Rinsed/ Irrigated with Irrigated with Irrigated with Saline Saline Saline -Foul Odor after Cleansing No No No -Bioengineered Tissue No No No -Bleeding Controlled with Pressure Pressure Pressure -Treatment Response Procedure Procedure Procedure Tolerated Well Tolerated Well Tolerated Well -Offloading No -Debridement - Subq, 1st 20sq cm Yes Yes Yes Pain Scale: 0-10 Numeric Is Patient Pain Free? Yes Yes Yes - Nurse 3 - General Ulcer D/C NN Start: 09/22/23 09:14 Freq: Status: Active Protocol: Activity Type Activity Date Activity User E-sign Co-sign Detail Recorded Client Recorded Date Recorded By Document 09/22/23 10:07 KW wound center 09/22/23 10:08 KW Document 09/29/23 09:38 KW l 09/29/23 09:39 KW 09/22/23 09/29/23 10:07 09:38 Wound Care Center Nurse 3 #1 Sacral -Ulcer Cleansing Rinsed/ Irrigated with Saline -Primary Dressing Applied Aquacel AG 4x4 -Other Dressing dakins soaked gauze -Primary Dressing Covered/Secured with Dry Gauze, Dry Gauze, Secured with Secured with Tape Tape -Aquacel AG 4x4 1 Pain Scale: 0-10 Numeric Is Patient Pain Free? 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 No bone seen. No hardware seen. Nia wound is stable. Wound care - Aquacel-Ag into the base of the ulcer top with fluffed gauze and cover with ABD daily. At the time of the dressing change, the wound is to be cleansed with antibacterial soap and rinsed with water. Two sets of wound cultures were obtained during surgery on 05/08/23. The first set was of the purulent drainage and was positive for Escherichia coli, Enterococcus faecalis and Bacteroides fragilis. The second set of operative cultures were positive for MRSA, Enterococcus faecalis, Anaerobic cocci, and Bacteroides fragilis. Infectious disease was consulted while she was admitted. She was sent home on Doxycycline and Augmentin. Wound culture obtained 09/29/23 which was positive for Staphylococcus aureus and Corynebacterium striatum. She was placed on Augmentin for the positive cultures. Encourage nutritional supplementation with protein to help the healing process. She has been drinking Jono. Follow up two weeks, I am out of town next week.
== END 2023-10-12 23:59 | disposition home or self-care (01) ==
LOC: WC 14:00
PROVIDERS: Referring Provider Orthopaedic Surgery; Visit Provider Nurse Practitioner Family
DX: T81.40XA Infection following a procedure, unspecified, initial encounter (principal); L98.422 Non-pressure chronic ulcer of back with fat layer exposed; Y83.8 Other surgical procedures as the cause of abnormal reaction of the patient, or of later complication, without mention of misadventure at the time of the procedure; Z86.14 Personal history of Methicillin resistant Staphylococcus aureus infection; Z79.899 Other long term (current) drug therapy; Z98.890 Other specified postprocedural states
CPT/HCPCS: 11042; 87070; 87075; 87077; 87186; 87205

== ENCOUNTER 2023-11-10 09:30 | Outpatient (RCR) | payer OTHER, SELFPAY ==
[2023-10-13 00:10] VITALS: BP 144/67; PULSE 91; RESP 16; TEMP 35.9; BMI 37.9
[2023-10-20 10:51] VITALS: BP 154/56; PULSE 80; RESP 16; TEMP 35.9; BMI 37.9
--- NOTE | 2023-10-20 12:24 | PCM.WC.PN ---
History of Present Illness Date of Service: 10/20/23 Chief Complaint: Lumbar wound after I&D History of Wound: Patient is a 63 year old female who underwent L4-5, L5-S1 posterior lumbar interbody fusion, decompression, posterior spinal fusion with instrumentation, use of allograft on 04/17/[address] Dominguez for lumbar spinal stenosis. She developed some redness and drainage a couple weeks after surgery. She was taken back to the OR on 05/08/23 for I&D and application of a wound VAC by Dr. Dominguez. Two sets of wound cultures were obtained during surgery. The first set was positive for Escherichia coli, Enterococcus faecalis and Bacteroides fragilis. The second set of operative cultures were positive for MRSA, Enterococcus faecalis, Anaerobic cocci, and Bacteroides fragilis. ID was consulted and treated with Vanc/Cefepime IV in the hospital, she was discharged on Doxycycline and Augmentin. Wound culture obtained 09/29/23 which was positive for Staphylococcus aureus and Corynebacterium striatum. She completed the Augmentin. She denies any complaints of fever, chills, nausea or vomiting. Her appetite is ok. Progress of Wound: Mid lower back ulcer is beefy pink. It is slightly smaller in size. Nia wound is clear. Objective Data Objective Data Vital Signs: Vital Signs Temp Pulse Resp BP O2 Del Method 96.6 F L 80 16 154/56 H Room Air 10/20/23 10:51 10/20/23 10:51 10/20/23 10:51 10/20/23 10:51 10/20/23 10:51 Oxygen Delivery Method Room Air Weight: 200 lb 14.792 oz Body Mass Index (BMI) 37.9 Charges/Coding Procedures Integumentary 111xxx-113xx: 24164 Jonna subq tissue 20 sq cm/< Debridement Note Debridement Note Wound debrided: #1 Lumbo-sacral area Laterality: Not Applicable Wound Grade/Stage: Grade 3 Type of Debridement: Excisional debridement Anesthesia Used: 5% Lidocaine Gel Depth: Down to and including healthy tissue and in the subcutaneous layer Percentage of wound debrided: 100 Instrument Used: 5mm curette Tissue Removed: Subcutaneous tissue and slough. Severity: Fat Layer Exposed Amount of bleeding with debridement: Mild Bleeding Controlled with: Compression and gauze Patient tolerated procedure: Patient tolerated procedure well Post-Debridement Measurements and Additional Note: Post-Debridement Measurements/Treatment WC - Nurse 1 - General Ulcer Assessment Start: 10/20/23 10:51 Freq: Status: Active Protocol: RAJEEV Activity Type Activity Date Activity User E-sign Co-sign Detail Recorded Client Recorded Date Recorded By Document 10/20/23 10:51 KW h 10/20/23 10:54 KW 10/20/23 10:51 - Today's Visit Information Type of service Follow-up Visit (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/[employer]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 ) Arrival Mode Ambulatory,Cane Accompanied by Patient Identification Verified (Name & Yes ) Height and Weight Body Mass Index (BMI) 37.9 BMI Classification Obese Vital Signs Temperature (97.8 F-99.1 F) 96.6 F L Temperature Source Temporal Pulse Rate (60-100) 80 Pulse Location Monitor Respiratory Rate (12-18) 16 Respiratory rate source Observation Oxygen Delivery Method Room Air Blood Pressure (90/60-120/80) 154/56 H Blood Pressure Mean (mm Hg) 88 Source Monitor Position Sitting Blood Pressure Location Left Arm History Since Last Visit- (Skip if this is Patient's initial visit) Have you changed medications since your No last visit? Any new allergies or adverse reactions No Had a fall/change in ADL's that may No increase risk of falls Signs or symptoms of abuse and/or No neglect since last visit Have you been in the hospital since your No last visit? Has dressing in place as prescribed Yes Has compression in place as prescribed N/A Has offloadiing in place as prescribed N/A Experienced any changes in pain level or No management Left Footwear Regular Shoe Right Footwear Regular Shoe Pain Scale: 0-10 Numeric Is Patient Pain Free? Yes - Nurse 1 - General Ulcer Measurement Start: 10/20/23 10:51 Freq: Status: Active Protocol: Activity Type Activity Date Activity User E-sign Co-sign Detail Recorded Client Recorded Date Recorded By Document 10/20/23 10:51 KW h 10/20/23 10:54 KW 10/20/23 10:51 Wound Center Nurse 1 #1 Sacral -Current Size (cm) - Length 5 -Current Size (cm) - Width 1.9 -Current Size (cm) - Depth 2 -Total Square Cm 9.5 -Date of Last Picture (Recall this 10/20/23 field) -Epithelialization Medium 34-66% -Exudate Amt Small -Exudate Type Serosanguineous -Wound Margin Distinct, Outline Attached -Granulation Amt Large (67-100%) -Granulation Quality [place],Red -Texture (Nia-wound Skin Appearance) Assessed -Moisture (Nia-wound Skin Appearance) Maceration -Color (Nia-wound Skin Appearance) Assessed -Temperature (Nia-wound Skin No Abnormality Appearance) (Pt Warm) -Tenderness on Palpation (Nia-wound No Skin Appearance) -Ulcer Cleansing Rinsed/ Irrigated with Saline -Foul Odor after Cleansing No -Anesthetic Used 5% Lidocaine Gel WC - Nurse 2 - General Ulcer CM Notes Start: 10/20/23 10:51 Freq: Status: Active Protocol: Activity Type Activity Date Activity User E-sign Co-sign Detail Recorded Client Recorded Date Recorded By Document 10/20/23 11:24 10/20/23 11:27 10/20/23 11:24 Wound Center Nurse 2 -Time 11:24 -Correct Patient Yes -Correct Side, Site, Position Yes -Correct Procedure Yes -Procedure Performed Yes -Type of Procedure Debridement -Clinical Debridement Subcutaneous -Tissue Removed Subcutaneous -Post Debridement (cm) - Length 5.0 -Post Debridement (cm) - Width 2.0 -Post Debridement (cm) - Depth 2.0 -Total Square (Post) (cm) 10.00 -Area of Debridement (cm) - Length 5 -Area of Debridement (cm) - Width 2 -Total Square (Area) (cm) 10 -Tunneling No -Undermining/Tunneling No -Circular Undermining No -Wound/Ulcer Outcome Not Healed -Ulcer Cleansing Rinsed/ Irrigated with Saline -Foul Odor after Cleansing No -Bioengineered Tissue No -Bleeding Controlled with Pressure -Treatment Response Procedure Tolerated Well -Offloading No -Debridement - Subq, 1st 20sq cm Yes Pain Scale: 0-10 Numeric Is Patient Pain Free? Yes WC - Nurse 3 - General Ulcer D/C NN Start: 10/20/23 10:51 Freq: Status: Active Protocol: Activity Type Activity Date Activity User E-sign Co-sign Detail Recorded Client Recorded Date Recorded By Document 10/20/23 11:27 JF 10/20/23 11:28 10/20/23 11:27 Wound Care Center Nurse 3 #1 Sacral -Ulcer Cleansing Rinsed/ Irrigated with Saline -Foul Odor after Cleansing No -Primary Dressing Applied Aquacel AG 4x4 -Primary Dressing Covered/Secured with Dry Gauze, Secured with Tape -Aquacel AG 4x4 1 Pain Scale: 0-10 Numeric Is Patient Pain Free? Yes WC - Visit Discharge Discharge Condition Stable Ambulatory Status Ambulatory Transportation Private Auto Medication Reconcilliation completed & Yes provided to patient/care provider Clinical Summary of Care Provided Yes Assessment/Plan Assessment/Plan (1) Skin ulcer of lower back with fat layer exposed: CODE(S): L98.422 - Non-pressure chronic ulcer of back with fat layer exposed (2) Postoperative infection: CODE(S): T81.40XA - Infection following a procedure, unspecified, initial encounter (3) Previous back surgery: CODE(S): Z98.890 - Other specified postprocedural states (4) History of incision and drainage: CODE(S): Z98.890 - Other specified postprocedural states PLAN: Plan Wound shows good granulation tissue. No bone seen. No hardware seen. Nia wound is stable. Wound care - Aquacel-Ag into the base of the ulcer top with fluffed gauze and cover with ABD daily. At the time of the dressing change, the wound is to be cleansed with antibacterial soap and rinsed with water. Two sets of wound cultures were obtained during surgery on 05/08/23. The first set was of the purulent drainage and was positive for Escherichia coli, Enterococcus faecalis and Bacteroides fragilis. The second set of operative cultures were positive for MRSA, Enterococcus faecalis, Anaerobic cocci, and Bacteroides fragilis. Infectious disease was consulted while she was admitted. She was sent home on Doxycycline and Augmentin. Wound culture obtained 09/29/23 which was positive for Staphylococcus aureus and Corynebacterium striatum. She completed the Augmentin. Encourage nutritional supplementation with protein to help the healing process. She has been drinking Jono. Follow up one week.
--- NOTE | 2023-10-23 09:26 | WC ---
PHOTO 10/20/2023 LUMBAR
[2023-10-27 09:43] VITALS: BP 159/56; PULSE 84; RESP 18; TEMP 36.6; BMI 37.9
--- NOTE | 2023-10-27 10:08 | PCM.WC.PN ---
History of Present Illness Date of Service: 10/27/23 Chief Complaint: Lumbar wound after I&D History of Wound: Patient is a 63 year old female who underwent L4-5, L5-S1 posterior lumbar interbody fusion, decompression, posterior spinal fusion with instrumentation, use of allograft on 04/17/[address] Dominguez for lumbar spinal stenosis. She developed some redness and drainage a couple weeks after surgery. She was taken back to the OR on 05/08/23 for I&D and application of a wound VAC by Dr. Dominguez. Two sets of wound cultures were obtained during surgery. The first set was positive for Escherichia coli, Enterococcus faecalis and Bacteroides fragilis. The second set of operative cultures were positive for MRSA, Enterococcus faecalis, Anaerobic cocci, and Bacteroides fragilis. ID was consulted and treated with Vanc/Cefepime IV in the hospital, she was discharged on Doxycycline and Augmentin. Wound culture obtained 09/29/23 which was positive for Staphylococcus aureus and Corynebacterium striatum. She completed the Augmentin. She denies any complaints of fever, chills, nausea or vomiting. Her appetite is ok. Progress of Wound: Mid lower back ulcer is beefy pink. It is slightly smaller in size. Nia wound is clear. Her wound healing progress has been very slow. Objective Data Objective Data Vital Signs: Vital Signs Temp Pulse Resp BP O2 Del Method 97.8 F 84 18 159/56 H Room Air 10/27/23 09:43 10/27/23 09:43 10/27/23 09:43 10/27/23 09:43 10/27/23 09:43 Oxygen Delivery Method Room Air Weight: 200 lb 14.792 oz Body Mass Index (BMI) 37.9 Charges/Coding Procedures Integumentary 111xxx-113xx: 55510 Jonna subq tissue 20 sq cm/< Debridement Note Debridement Note Wound debrided: #1 Lumbo-sacral area Laterality: Not Applicable Wound Grade/Stage: Grade 3 Type of Debridement: Excisional debridement Anesthesia Used: 5% Lidocaine Gel Depth: Down to and including healthy tissue and in the subcutaneous layer Percentage of wound debrided: 100 Instrument Used: 5mm curette Tissue Removed: Subcutaneous tissue and slough. Severity: Fat Layer Exposed Amount of bleeding with debridement: Mild Bleeding Controlled with: Compression and gauze Patient tolerated procedure: Patient tolerated procedure well Post-Debridement Measurements and Additional Note: Post-Debridement Measurements/Treatment DESTINEE - Nurse 1 - General Ulcer Assessment Start: 10/20/23 10:51 Freq: Status: Active Protocol: RAJEEV Activity Type Activity Date Activity User E-sign Co-sign Detail Recorded Client Recorded Date Recorded By Document 10/20/23 10:51 KW h 10/20/23 10:54 KW Document 10/27/23 09:43 KW g 10/27/23 09:48 KW 10/20/23 10/27/23 10:51 09:43 WC - Today's Visit Information Type of service Follow-up Visit 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 ) ) Arrival Mode Ambulatory,Cane Ambulatory Accompanied by Patient Identification Verified (Name & Yes Yes ) Height and Weight Body Mass Index (BMI) 37.9 37.9 BMI Classification Obese Obese Vital Signs Temperature (97.8 F-99.1 F) 96.6 F L 97.8 F Temperature Source Temporal Temporal Pulse Rate (60-100) 80 84 Pulse Location Monitor Monitor Respiratory Rate (12-18) 16 18 Respiratory rate source Observation Observation Oxygen Delivery Method Room Air Room Air Blood Pressure (90/60-120/80) 154/56 H 159/56 H Blood Pressure Mean (mm Hg) 88 90 Source Monitor Monitor Position Sitting Sitting Blood Pressure Location Left Arm Left Arm History Since Last Visit- (Skip if this is Patient's initial visit) Have you changed medications since your No No last visit? Any new allergies or adverse reactions No No Had a fall/change in ADL's that may No No increase risk of falls Signs or symptoms of abuse and/or No No neglect since last visit Have you been in the hospital since your No No last visit? Has dressing in place as prescribed Yes Yes Has compression in place as prescribed N/A N/A Has offloadiing in place as prescribed N/A N/A Experienced any changes in pain level or No No management Left Footwear Regular Shoe Regular Shoe Right Footwear Regular Shoe Regular Shoe Pain Scale: 0-10 Numeric Is Patient Pain Free? Yes Yes DESTINEE - Nurse 1 - General Ulcer Measurement Start: 10/20/23 10:51 Freq: Status: Active Protocol: Activity Type Activity Date Activity User E-sign Co-sign Detail Recorded Client Recorded Date Recorded By Document 10/20/23 10:51 KW h 10/20/23 10:54 KW Document 10/27/23 09:43 KW g 10/27/23 09:48 KW 10/20/23 10/27/23 10:51 09:43 Wound Center Nurse 1 #1 Sacral -Current Size (cm) - Length 5 4.4 -Current Size (cm) - Width 1.9 1.5 -Current Size (cm) - Depth 2 2.6 -Total Square Cm 9.5 6.60 -Date of Last Picture (Recall this 10/20/23 10/27/23 field) -Epithelialization Medium 34-66% -Exudate Amt Small Small -Exudate Type Serosanguineous Serosanguineous -Wound Margin Distinct, Distinct, Outline Outline Attached Attached -Granulation Amt Large (67-100%) Medium (34-66%) -Granulation Quality [place] -Necrosis Amt Medium (34-66%) -Necrotic Tissue Type Adherent Slough -Texture (Nia-wound Skin Appearance) Assessed Assessed -Moisture (Nia-wound Skin Appearance) Maceration Assessed -Color (Nia-wound Skin Appearance) Assessed Assessed -Temperature (Nia-wound Skin No Abnormality No Abnormality Appearance) (Pt Warm) (Pt Warm) -Tenderness on Palpation (Nia-wound No No Skin Appearance) -Ulcer Cleansing Rinsed/ Rinsed/ Irrigated with Irrigated with Saline Saline -Foul Odor after Cleansing No No -Anesthetic Used 5% Lidocaine 5% Lidocaine Gel Gel WC - Nurse 2 - General Ulcer CM Notes Start: 10/20/23 10:51 Freq: Status: Active Protocol: Activity Type Activity Date Activity User E-sign Co-sign Detail Recorded Client Recorded Date Recorded By Document 10/20/23 11:24 00 10/20/23 11:27 Document 10/27/23 09:55 [facility] [id number] 10/27/23 10:02 [facility] 10/20/23 10/27/23 11:24 09:55 Wound Center Nurse 2 #1 Sacral -Time 11:24 09:56 -Correct Patient Yes Yes -Correct Side, Site, Position Yes Yes -Correct Procedure Yes Yes -Procedure Performed Yes Yes -Type of Procedure Debridement Debridement -Clinical Debridement Subcutaneous Subcutaneous -Tissue Removed Subcutaneous Subcutaneous -Post Debridement (cm) - Length 5.0 4.5 -Post Debridement (cm) - Width 2.0 1.8 -Post Debridement (cm) - Depth 2.0 2 -Total Square (Post) (cm) 10.00 8.10 -Area of Debridement (cm) - Length 5 4.5 -Area of Debridement (cm) - Width 2 1.8 -Total Square (Area) (cm) 10 8.10 -Tunneling No No -Undermining/Tunneling No No -Circular Undermining No No -Wound/Ulcer Outcome Not Healed Not Healed -Ulcer Cleansing Rinsed/ Rinsed/ Irrigated with Irrigated with Saline Saline -Foul Odor after Cleansing No No -Bioengineered Tissue No No -Bleeding Controlled with Pressure Pressure -Treatment Response Procedure Procedure Tolerated Well Tolerated Well -Offloading No -Debridement - Subq, 1st 20sq cm Yes Yes Pain Scale: 0-10 Numeric Is Patient Pain Free? Yes Yes - Nurse 3 - General Ulcer D/C NN Start: 10/20/23 10:51 Freq: Status: Active Protocol: Activity Type Activity Date Activity User E-sign Co-sign Detail Recorded Client Recorded Date Recorded By Document 10/20/23 11:27 10/20/23 11:28 10/20/23 11:27 Wound Care Center Nurse 3 #1 Sacral -Ulcer Cleansing Rinsed/ Irrigated with Saline -Foul Odor after Cleansing No -Primary Dressing Applied Aquacel AG 4x4 -Primary Dressing Covered/Secured with Dry Gauze, Secured with Tape -Aquacel AG 4x4 1 Pain Scale: 0-10 Numeric Is Patient Pain Free? 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 No bone seen. No hardware seen. Nia wound is stable. Wound care - Aquacel-Ag into the base of the ulcer top with fluffed gauze and cover with ABD daily. At the time of the dressing change, the wound is to be cleansed with antibacterial soap and rinsed with water. She would benefit from a negative pressure wound care. Will apply to her insurance company for a SNAP VAC approval. She would need to come into the wound healing center twice a week to have the SNAP VAC changed. She would be able to remove the SNAP VAC before coming in here and shower. Two sets of wound cultures were obtained during surgery on 05/08/23. The first set was of the purulent drainage and was positive for Escherichia coli, Enterococcus faecalis and Bacteroides fragilis. The second set of operative cultures were positive for MRSA, Enterococcus faecalis, Anaerobic cocci, and Bacteroides fragilis. Infectious disease was consulted while she was admitted. She was sent home on Doxycycline and Augmentin. Wound culture obtained 09/29/23 which was positive for Staphylococcus aureus and Corynebacterium striatum. She completed the Augmentin. Encourage nutritional supplementation with protein to help the healing process. She has been drinking Jono. Follow up one week.
--- NOTE | 2023-10-29 08:56 | WC ---
PHOTO 10/27/23 LUMBAR
[2023-11-03 09:31] VITALS: BP 168/75; PULSE 82; RESP 18; TEMP 36.2; BMI 37.9
--- NOTE | 2023-11-03 13:06 | PCM.WC.PN ---
History of Present Illness Date of Service: 11/03/23 Chief Complaint: Lumbar wound after I&D History of Wound: Patient is a 63 year old female who underwent L4-5, L5-S1 posterior lumbar interbody fusion, decompression, posterior spinal fusion with instrumentation, use of allograft on 04/17/[address] Dominguez for lumbar spinal stenosis. She developed some redness and drainage a couple weeks after surgery. She was taken back to the OR on 05/08/23 for I&D and application of a wound VAC by Dr. Dominguez. Two sets of wound cultures were obtained during surgery. The first set was positive for Escherichia coli, Enterococcus faecalis and Bacteroides fragilis. The second set of operative cultures were positive for MRSA, Enterococcus faecalis, Anaerobic cocci, and Bacteroides fragilis. ID was consulted and treated with Vanc/Cefepime IV in the hospital, she was discharged on Doxycycline and Augmentin. Wound culture obtained 09/29/23 which was positive for Staphylococcus aureus and Corynebacterium striatum. She completed the Augmentin. She denies any complaints of fever, chills, nausea or vomiting. Her appetite is ok. Progress of Wound: Mid lower back ulcer is beefy pink. It is slightly smaller in size. Nia wound is clear. Her wound healing progress has been very slow. She was approved for the SNAP vac, but she would like to think about it before starting it. Objective Data Objective Data Vital Signs: Vital Signs Temp Pulse Resp BP O2 Del Method 97.2 F L 82 18 168/75 H Room Air 11/03/23 09:31 11/03/23 09:31 11/03/23 09:31 11/03/23 09:31 11/03/23 09:31 Oxygen Delivery Method Room Air Weight: 200 lb 14.792 oz Body Mass Index (BMI) 37.9 Charges/Coding Procedures Integumentary 111xxx-113xx: [id number] Jonna subq tissue 20 sq cm/< Debridement Note Debridement Note Wound debrided: #1 Lumbo-sacral area Laterality: Not Applicable Wound Grade/Stage: Grade 3 Type of Debridement: Excisional debridement Anesthesia Used: 5% Lidocaine Gel Depth: Down to and including healthy tissue and in the subcutaneous layer Percentage of wound debrided: 100 Instrument Used: 5mm curette Tissue Removed: Subcutaneous tissue and slough. Severity: Fat Layer Exposed Amount of bleeding with debridement: Mild Bleeding Controlled with: Compression and gauze Patient tolerated procedure: Patient tolerated procedure well Post-Debridement Measurements and Additional Note: Post-Debridement Measurements/Treatment - Nurse 1 - General Ulcer Assessment Start: 10/20/23 10:51 Freq: Status: Active Protocol: RAJEEV Activity Type Activity Date Activity User E-sign Co-sign Detail Recorded Client Recorded Date Recorded By Document 10/20/23 10:51 KW h 10/20/23 10:54 KW Document 10/27/23 09:43 KW g 10/27/23 09:48 KW Document 11/03/23 09:31 ML ; 11/03/23 09:34 ML 10/20/23 10/27/23 11/03/23 10:51 09:43 09:31 WC - Today's Visit Information Type of service Follow-up Visit Follow-up Visit Follow-up Visit (Physician/CDA TEACHER (Physician/CDA TEACHER (Physician/CDA TEACHER ) ) ) Arrival Mode Ambulatory,Cane Ambulatory Ambulatory Accompanied by Patient Identification Verified (Name & Yes Yes Yes ) Height and Weight Body Mass Index (BMI) 37.9 37.9 37.9 BMI Classification Obese Obese Obese Vital Signs Temperature (97.8 F-99.1 F) 96.6 F L 97.8 F 97.2 F L Temperature Source Temporal Temporal Temporal Pulse Rate (60-100) 80 84 82 Pulse Location Monitor Monitor Monitor Respiratory Rate (12-18) 16 18 18 Respiratory rate source Observation Observation Observation Oxygen Delivery Method Room Air Room Air Room Air Blood Pressure (90/60-120/80) 154/56 H 159/56 H 168/75 H Blood Pressure Mean (mm Hg) 88 90 106 Source Monitor Monitor Monitor Position Sitting Sitting Semi-Fowlers Blood Pressure Location Left Arm Left Arm Left Arm History Since Last Visit- (Skip if this is Patient's initial visit) Have you changed medications since your No No No last visit? Any new allergies or adverse reactions No No No Had a fall/change in ADL's that may No No No increase risk of falls Signs or symptoms of abuse and/or No No No neglect since last visit Have you been in the hospital since your No No No last visit? Has dressing in place as prescribed Yes Yes Yes Has compression in place as prescribed N/A N/A N/A Has offloadiing in place as prescribed N/A N/A N/A Experienced any changes in pain level or No No No management Left Footwear Regular Shoe Regular Shoe Regular Shoe Right Footwear Regular Shoe Regular Shoe Regular Shoe Pain Scale: 0-10 Numeric Is Patient Pain Free? Yes Yes Yes WC - Nurse 1 - General Ulcer Measurement Start: 10/20/23 10:51 Freq: Status: Active Protocol: Activity Type Activity Date Activity User E-sign Co-sign Detail Recorded Client Recorded Date Recorded By Document 10/20/23 10:51 KW h 10/20/23 10:54 KW Document 10/27/23 09:43 KW g 10/27/23 09:48 KW Document 11/03/23 09:31 ML ; 11/03/23 09:34 ML 10/20/23 10/27/23 11/03/23 10:51 09:43 09:31 Wound Center Nurse 1 #1 Sacral -Current Size (cm) - Length 5 4.4 4 -Current Size (cm) - Width 1.9 1.5 2 -Current Size (cm) - Depth 2 2.6 3.5 -Total Square Cm 9.5 6.60 8 -Date of Last Picture (Recall this 10/20/23 10/27/23 11/03/23 field) -Epithelialization Medium 34-66% -Exudate Amt Small Small Medium -Exudate Type Serosanguineous Serosanguineous Serosanguineous -Wound Margin Distinct, Distinct, Distinct, Outline Outline Outline Attached Attached Attached -Granulation Amt Large (67-100%) Medium (34-66%) Large (67-100%) -Granulation Quality Iron Post,Red Iron Post Iron Post -Necrosis Amt Medium (34-66%) Small (1-33%) -Necrotic Tissue Type Adherent Slough Adherent Slough -Texture (Nia-wound Skin Appearance) Assessed Assessed Assessed -Moisture (Nia-wound Skin Appearance) Maceration Assessed Assessed -Color (Nia-wound Skin Appearance) Assessed Assessed Assessed -Temperature (Nia-wound Skin No Abnormality No Abnormality No Abnormality Appearance) (Pt Warm) (Pt Warm) (Pt Warm) -Tenderness on Palpation (Nia-wound No No No Skin Appearance) -Ulcer Cleansing Rinsed/ Rinsed/ Rinsed/ Irrigated with Irrigated with Irrigated with Saline Saline Saline -Foul Odor after Cleansing No No No -Anesthetic Used 5% Lidocaine 5% Lidocaine 5% Lidocaine Gel Gel Gel WC - Nurse 2 - General Ulcer CM Notes Start: 10/20/23 10:51 Freq: Status: Active Protocol: Activity Type Activity Date Activity User E-sign Co-sign Detail Recorded Client Recorded Date Recorded By Document 10/20/23 11:24 JF 00 10/20/23 11:27 JF Document 10/27/23 09:55 BMF [id number] 10/27/23 10:02 BMF Document 11/03/23 09:44 BMF [email or web address] 11/03/23 09:49 BMF 10/20/23 10/27/23 11/03/23 11:24 09:55 09:44 Wound Center Nurse 2 #1 Sacral -Time 11:24 09:56 09:45 -Correct Patient Yes Yes Yes -Correct Side, Site, Position Yes Yes Yes -Correct Procedure Yes Yes Yes -Procedure Performed Yes Yes Yes -Type of Procedure Debridement Debridement Debridement -Clinical Debridement Subcutaneous Subcutaneous Subcutaneous -Tissue Removed Subcutaneous Subcutaneous Subcutaneous -Post Debridement (cm) - Length 5.0 4.5 4.2 -Post Debridement (cm) - Width 2.0 1.8 1.5 -Post Debridement (cm) - Depth 2.0 2 2 -Total Square (Post) (cm) 10.00 8.10 6.30 -Area of Debridement (cm) - Length 5 4.5 4.2 -Area of Debridement (cm) - Width 2 1.8 1.5 -Total Square (Area) (cm) 10 8.10 6.30 -Tunneling No No No -Undermining/Tunneling No No No -Circular Undermining No No No -Wound/Ulcer Outcome Not Healed Not Healed Not Healed -Ulcer Cleansing Rinsed/ Rinsed/ Rinsed/ Irrigated with Irrigated with Irrigated with Saline Saline Saline -Foul Odor after Cleansing No No No -Bioengineered Tissue No No No -Bleeding Controlled with Pressure Pressure Pressure -Treatment Response Procedure Procedure Procedure Tolerated Well Tolerated Well Tolerated Well -Offloading No -Debridement - Subq, 1st 20sq cm Yes Yes Yes Pain Scale: 0-10 Numeric Is Patient Pain Free? Yes Yes Yes DESTINEE - Nurse 3 - General Ulcer D/C NN Start: 10/20/23 10:51 Freq: Status: Active Protocol: Activity Type Activity Date Activity User E-sign Co-sign Detail Recorded Client Recorded Date Recorded By Document 10/20/23 11:27 JF 00 10/20/23 11:28 JF Document 10/27/23 10:07 DL [email or web address] 10/27/23 10:08 DL Document 11/03/23 09:52 ML ; 11/03/23 09:53 ML 10/20/23 10/27/23 11/03/23 11:27 10:07 09:52 Wound Care Center Nurse 3 #1 Sacral -Ulcer Cleansing Rinsed/ Rinsed/ Rinsed/ Irrigated with Irrigated with Irrigated with Saline Saline Saline -Foul Odor after Cleansing No No -Primary Dressing Applied Aquacel AG 4x4 Aquacel AG 4x4 Aquacel AG 4x4 -Primary Dressing Covered/Secured with Dry Gauze, Dry Gauze, Dry Gauze & Secured with Secured with Roll Gauze Tape Tape -Aquacel AG 4x4 1 1 1 Treatment Response Procedure Tolerated Well Pain Scale: 0-10 Numeric Is Patient Pain Free? Yes Yes Yes WC - Visit Discharge Discharge Condition Stable Stable Ambulatory Status Ambulatory Ambulatory Transportation Private Auto Private Auto Medication Reconcilliation completed & Yes provided to patient/care provider Clinical Summary of Care Provided Yes Facility Type Home Health Orders Sent Yes Assessment/Plan Assessment/Plan (1) Skin ulcer of lower back with fat layer exposed: CODE(S): L98.422 - Non-pressure chronic ulcer of back with fat layer exposed (2) Postoperative infection: CODE(S): T81.40XA - Infection following a procedure, unspecified, initial encounter (3) Previous back surgery: CODE(S): Z98.890 - Other specified postprocedural states (4) History of incision and drainage: CODE(S): Z98.890 - Other specified postprocedural states PLAN: Plan Wound shows granulation tissue. No bone seen. No hardware seen. Nia wound is stable. Wound care - Aquacel-Ag into the base of the ulcer top with fluffed gauze and cover with ABD daily. At the time of the dressing change, the wound is to be cleansed with antibacterial soap and rinsed with water. She has been approved for a SNAP vac for negative pressure wound care. She would need to come into the wound healing center twice a week to have the SNAP VAC changed. She would be able to remove the SNAP VAC before coming in here and shower. She would like more time to think about the SNAP vac before we apply it. We did show her what it looks like and how it is applied. Two sets of wound cultures were obtained during surgery on 05/08/23. The first set was of the purulent drainage and was positive for Escherichia coli, Enterococcus faecalis and Bacteroides fragilis. The second set of operative cultures were positive for MRSA, Enterococcus faecalis, Anaerobic cocci, and Bacteroides fragilis. Infectious disease was consulted while she was admitted. She was sent home on Doxycycline and Augmentin. Wound culture obtained 09/29/23 which was positive for Staphylococcus aureus and Corynebacterium striatum. She completed the Augmentin. Encourage nutritional supplementation with protein to help the healing process. She has been drinking Jono. Follow up one week.
[2023-11-10 09:44] VITALS: BP 142/50; PULSE 80; RESP 18; TEMP 35.8; BMI 37.9
--- NOTE | 2023-11-10 12:21 | PN.PCM_ITS ---
History of Present Illness Date of Service: 11/10/23 Chief Complaint: Lumbar wound after I&D History of Wound: Patient is a 63 year old female who underwent L4-5, L5-S1 posterior lumbar interbody fusion, decompression, posterior spinal fusion with instrumentation, use of allograft on 04/17/[address] Dominguez for lumbar spinal stenosis. She developed some redness and drainage a couple weeks after surgery. She was taken back to the OR on 05/08/23 for I&D and application of a wound VAC by Dr. Dominguez. Two sets of wound cultures were obtained during surgery. The first set was positive for Escherichia coli, Enterococcus faecalis and Bacteroides fragilis. The second set of operative cultures were positive for MRSA, Enterococcus faecalis, Anaerobic cocci, and Bacteroides fragilis. ID was consulted and treated with Vanc/Cefepime IV in the hospital, she was discharged on Doxycycline and Augmentin. Wound culture obtained 09/29/23 which was positive for Staphylococcus aureus and Corynebacterium striatum. She completed the Augmentin. She denies any complaints of fever, chills, nausea or vomiting. Her appetite is ok. Progress of Wound: Mid lower back ulcer is beefy pink. It is slightly smaller in size. Nia wound is clear. Her wound healing progress has been very slow. She was approved for the SNAP vac, she is hesitant to start it, but is willing to give it a try. Objective Data Objective Data Vital Signs: Vital Signs Temp Pulse Resp BP O2 Del Method 96.5 F L 80 18 142/50 H Room Air 11/10/23 09:44 11/10/23 09:44 11/10/23 09:44 11/10/23 09:44 11/03/23 09:31 Oxygen Delivery Method Room Air Weight: 200 lb 14.792 oz Body Mass Index (BMI) 37.9 Charges/Coding Procedures Integumentary 111xxx-113xx: 42114 Jonna subq tissue 20 sq cm/< Debridement Note Debridement Note Wound debrided: #1 Lumbo-sacral area Laterality: Not Applicable Wound Grade/Stage: Grade 3 Type of Debridement: Excisional debridement Anesthesia Used: 5% Lidocaine Gel Depth: Down to and including healthy tissue and in the subcutaneous layer Percentage of wound debrided: 100 Instrument Used: 5mm curette Tissue Removed: Subcutaneous tissue and slough. Severity: Fat Layer Exposed Amount of bleeding with debridement: Mild Bleeding Controlled with: Compression and gauze Patient tolerated procedure: Patient tolerated procedure well Post-Debridement Measurements and Additional Note: Post-Debridement Measurements/Treatment - Nurse 1 - General Ulcer Assessment Start: 10/20/23 10:51 Freq: Status: Active Protocol: RAJEEV Activity Type Activity Date Activity User E-sign Co-sign Detail Recorded Client Recorded Date Recorded By Document 10/20/23 10:51 KW h 10/20/23 10:54 KW Document 10/27/23 09:43 KW g 10/27/23 09:48 KW Document 11/03/23 09:31 ML ; 11/03/23 09:34 ML Document 11/10/23 09:44 DL [email or web address] 11/10/23 09:48 DL 10/20/23 10/27/23 11/03/23 10:51 09:43 09:31 - Today's Visit Information Type of service Follow-up Visit Follow-up Visit Follow-up Visit (Physician/LOG INSPECTOR (Physician/LOG INSPECTOR (Physician/LOG INSPECTOR ) ) ) Arrival Mode Ambulatory,Cane Ambulatory Ambulatory Transfer Assistance Accompanied by Patient Identification Verified (Name & Yes Yes Yes ) Patient Requires Transmission-Based Precautions Height and Weight Body Mass Index (BMI) 37.9 37.9 37.9 BMI Classification Obese Obese Obese Vital Signs Temperature (97.8 F-99.1 F) 96.6 F L 97.8 F 97.2 F L Temperature Source Temporal Temporal Temporal Pulse Rate (60-100) 80 84 82 Pulse Location Monitor Monitor Monitor Respiratory Rate (12-18) 16 18 18 Respiratory rate source Observation Observation Observation Oxygen Delivery Method Room Air Room Air Room Air Blood Pressure (90/60-120/80) 154/56 H 159/56 H 168/75 H Blood Pressure Mean (mm Hg) 88 90 106 Source Monitor Monitor Monitor Position Sitting Sitting Semi-Fowlers Blood Pressure Location Left Arm Left Arm Left Arm History Since Last Visit- (Skip if this is Patient's initial visit) Have you changed medications since your No No No last visit? Any new allergies or adverse reactions No No No Had a fall/change in ADL's that may No No No increase risk of falls Signs or symptoms of abuse and/or No No No neglect since last visit Have you been in the hospital since your No No No last visit? Has dressing in place as prescribed Yes Yes Yes Has compression in place as prescribed N/A N/A N/A Has offloadiing in place as prescribed N/A N/A N/A Experienced any changes in pain level or No No No management Left Footwear Regular Shoe Regular Shoe Regular Shoe Right Footwear Regular Shoe Regular Shoe Regular Shoe Pain Scale: 0-10 Numeric Is Patient Pain Free? Yes Yes Yes 11/10/23 09:44 WC - Today's Visit Information Type of service Follow-up Visit (Physician/LOG INSPECTOR ) Arrival Mode Ambulatory,Cane Transfer Assistance None Accompanied by Patient Identification Verified (Name & Yes ) Patient Requires Transmission-Based No Precautions Height and Weight Body Mass Index (BMI) 37.9 BMI Classification Obese Vital Signs Temperature (97.8 F-99.1 F) 96.5 F L Temperature Source Temporal Pulse Rate (60-100) 80 Pulse Location Monitor Respiratory Rate (12-18) 18 Respiratory rate source Observation Oxygen Delivery Method Blood Pressure (90/60-120/80) 142/50 H Blood Pressure Mean (mm Hg) 80 Source Monitor Position Blood Pressure Location History Since Last Visit- (Skip if this is Patient's initial visit) Have you changed medications since your No last visit? Any new allergies or adverse reactions No Had a fall/change in ADL's that may No increase risk of falls Signs or symptoms of abuse and/or No neglect since last visit Have you been in the hospital since your No last visit? Has dressing in place as prescribed Yes Has compression in place as prescribed N/A Has offloadiing in place as prescribed Yes Experienced any changes in pain level or No management Left Footwear Right Footwear Pain Scale: 0-10 Numeric Is Patient Pain Free? Yes - Nurse 1 - General Ulcer Measurement Start: 10/20/23 10:51 Freq: Status: Active Protocol: Activity Type Activity Date Activity User E-sign Co-sign Detail Recorded Client Recorded Date Recorded By Document 10/20/23 10:51 KW h 10/20/23 10:54 KW Document 10/27/23 09:43 KW g 10/27/23 09:48 KW Document 11/03/23 09:31 ML ; 11/03/23 09:34 ML Document 11/10/23 09:44 DL [email or web address] 11/10/23 09:48 DL Edit Result 11/10/23 09:44 DL (1) 10.10.25.7 11/10/23 09:49 DL (1) #1 Sacral - Current Size (cm) - Width 1 => 1.8 - Current Size (cm) - Depth 8 => 2.5 - Total Square Cm 4 => 7.2 - Photo Taken => Yes - Exudate Amt => Medium - Exudate Type => Serosanguineous - Wound Margin => Distinct, Outline => Attached - Granulation Amt => Large (67-100%) - Granulation Quality => Pale,[place] - Necrosis Amt => None Present (0%) - Structure Exposed => N/A - Texture (Nia-wound Skin Appearance) => Scarring - Moisture (Nia-wound Skin Appearance) => No Abnormality - Color (Nia-wound Skin Appearance) => No Abnormality - Temperature (Nia-wound Skin => No Abnormality (Pt Appearance) => Warm) - Tenderness on Palpation (Nia-wound => No Skin Appearance) - Ulcer Cleansing => Soap and Water - Foul Odor after Cleansing => No - Anesthetic Used => 5% Lidocaine Gel 10/20/23 10/27/23 11/03/23 10:51 09:43 09:31 Wound Center Nurse 1 #1 Sacral -Current Size (cm) - Length 5 4.4 4 -Current Size (cm) - Width 1.9 1.5 2 -Current Size (cm) - Depth 2 2.6 3.5 -Total Square Cm 9.5 6.60 8 -Date of Last Picture (Recall this 10/20/23 10/27/23 11/03/23 field) -Photo Taken -Epithelialization Medium 34-66% -Exudate Amt Small Small Medium -Exudate Type Serosanguineous Serosanguineous Serosanguineous -Wound Margin Distinct, Distinct, Distinct, Outline Outline Outline Attached Attached Attached -Granulation Amt Large (67-100%) Medium (34-66%) Large (67-100%) -Granulation Quality [place] -Necrosis Amt Medium (34-66%) Small (1-33%) -Necrotic Tissue Type Adherent Slough Adherent Slough -Structure Exposed -Texture (Nia-wound Skin Appearance) Assessed Assessed Assessed -Moisture (Nia-wound Skin Appearance) Maceration Assessed Assessed -Color (Nia-wound Skin Appearance) Assessed Assessed Assessed -Temperature (Ina-wound Skin No Abnormality No Abnormality No Abnormality Appearance) (Pt Warm) (Pt Warm) (Pt Warm) -Tenderness on Palpation (Nia-wound No No No Skin Appearance) -Ulcer Cleansing Rinsed/ Rinsed/ Rinsed/ Irrigated with Irrigated with Irrigated with Saline Saline Saline -Foul Odor after Cleansing No No No -Anesthetic Used 5% Lidocaine 5% Lidocaine 5% Lidocaine Gel Gel Gel 11/10/23 09:44 Wound Center Nurse 1 #1 Sacral -Current Size (cm) - Length 4 -Current Size (cm) - Width 1.8 -Current Size (cm) - Depth 2.5 -Total Square Cm 7.2 -Date of Last Picture (Recall this field) -Photo Taken Yes -Epithelialization -Exudate Amt Medium -Exudate Type Serosanguineous -Wound Margin Distinct, Outline Attached -Granulation Amt Large (67-100%) -Granulation Quality Pale,[place] -Necrosis Amt None Present (0 %) -Necrotic Tissue Type -Structure Exposed N/A -Texture (Nia-wound Skin Appearance) Scarring -Moisture (Nia-wound Skin Appearance) No Abnormality -Color (Nia-wound Skin Appearance) No Abnormality -Temperature (Nia-wound Skin No Abnormality Appearance) (Pt Warm) -Tenderness on Palpation (Nia-wound No Skin Appearance) -Ulcer Cleansing Soap and Water -Foul Odor after Cleansing No -Anesthetic Used 5% Lidocaine Gel WC - Nurse 2 - General Ulcer CM Notes Start: 10/20/23 10:51 Freq: Status: Active Protocol: Activity Type Activity Date Activity User E-sign Co-sign Detail Recorded Client Recorded Date Recorded By Document 10/20/23 11:24 00 10/20/23 11:27 Document 10/27/23 09:55 [facility] [email or web address] 10/27/23 10:02 [facility] Document 11/03/23 09:44 BM 10.10.25.7 11/03/23 09:49 BM Document 11/10/23 09:54 BM 10.10.25.7 11/10/23 10:00 [facility] 10/20/23 10/27/23 11/03/23 11:24 09:55 09:44 Wound Center Nurse 2 #1 Sacral -Time 11:24 09:56 09:45 -Correct Patient Yes Yes Yes -Correct Side, Site, Position Yes Yes Yes -Correct Procedure Yes Yes Yes -Procedure Performed Yes Yes Yes -Type of Procedure Debridement Debridement Debridement -Clinical Debridement Subcutaneous Subcutaneous Subcutaneous -Tissue Removed Subcutaneous Subcutaneous Subcutaneous -Post Debridement (cm) - Length 5.0 4.5 4.2 -Post Debridement (cm) - Width 2.0 1.8 1.5 -Post Debridement (cm) - Depth 2.0 2 2 -Total Square (Post) (cm) 10.00 8.10 6.30 -Area of Debridement (cm) - Length 5 4.5 4.2 -Area of Debridement (cm) - Width 2 1.8 1.5 -Total Square (Area) (cm) 10 8.10 6.30 -Tunneling No No No -Undermining/Tunneling No No No -Circular Undermining No No No -Wound/Ulcer Outcome Not Healed Not Healed Not Healed -Ulcer Cleansing Rinsed/ Rinsed/ Rinsed/ Irrigated with Irrigated with Irrigated with Saline Saline Saline -Foul Odor after Cleansing No No No -Bioengineered Tissue No No No -Bleeding Controlled with Pressure Pressure Pressure -Treatment Response Procedure Procedure Procedure Tolerated Well Tolerated Well Tolerated Well -Offloading No -Debridement - Subq, 1st 20sq cm Yes Yes Yes Pain Scale: 0-10 Numeric Is Patient Pain Free? Yes Yes Yes 11/10/23 09:54 Wound Center Nurse 2 #1 Sacral -Time 09:54 -Correct Patient Yes -Correct Side, Site, Position Yes -Correct Procedure Yes -Procedure Performed Yes -Type of Procedure Debridement -Clinical Debridement Subcutaneous -Tissue Removed Subcutaneous -Post Debridement (cm) - Length 4 -Post Debridement (cm) - Width 2 -Post Debridement (cm) - Depth 1.8 -Total Square (Post) (cm) 8 -Area of Debridement (cm) - Length 4 -Area of Debridement (cm) - Width 2 -Total Square (Area) (cm) 8 -Tunneling No -Undermining/Tunneling No -Circular Undermining No -Wound/Ulcer Outcome Not Healed -Ulcer Cleansing Rinsed/ Irrigated with Saline -Foul Odor after Cleansing No -Bioengineered Tissue No -Bleeding Controlled with Pressure -Treatment Response Procedure Tolerated Well -Offloading -Debridement - Subq, 1st 20sq cm Yes Pain Scale: 0-10 Numeric Is Patient Pain Free? Yes - Nurse 3 - General Ulcer D/C NN Start: 10/20/23 10:51 Freq: Status: Active Protocol: Activity Type Activity Date Activity User E-sign Co-sign Detail Recorded Client Recorded Date Recorded By Document 10/20/23 11:27 JF 00 10/20/23 11:28 JF Document 10/27/23 10:07 DL 10.10.25.7 10/27/23 10:08 DL Document 11/03/23 09:52 ML ; 11/03/23 09:53 ML Document 11/10/23 10:10 KW fg\ 11/10/23 10:19 KW 10/20/23 10/27/23 11/03/23 11:27 10:07 09:52 Wound Care Center Nurse 3 #1 Sacral -Ulcer Cleansing Rinsed/ Rinsed/ Rinsed/ Irrigated with Irrigated with Irrigated with Saline Saline Saline -Foul Odor after Cleansing No No -Negative Pressure Wound Therapy -Setting (mmHg) -Negative Pressure is -Primary Dressing Applied Aquacel AG 4x4 Aquacel AG 4x4 Aquacel AG 4x4 -Primary Dressing Covered/Secured with Dry Gauze, Dry Gauze, Dry Gauze & Secured with Secured with Roll Gauze Tape Tape -NPWT Application Charge -Aquacel AG 4x4 1 1 1 Treatment Response Procedure Tolerated Well Pain Scale: 0-10 Numeric Is Patient Pain Free? Yes Yes Yes WC - Visit Discharge Discharge Condition Stable Stable Ambulatory Status Ambulatory Ambulatory Transportation Private Auto Private Auto Medication Reconcilliation completed & Yes provided to patient/care provider Clinical Summary of Care Provided Yes Notes: Facility Type Home Health Orders Sent Yes 11/10/23 10:10 Wound Care Center Nurse 3 #1 Sacral -Ulcer Cleansing Rinsed/ Irrigated with Saline -Foul Odor after Cleansing -Negative Pressure Wound Therapy Continue -Setting (mmHg) 125 -Negative Pressure is Continuous -Primary Dressing Applied -Primary Dressing Covered/Secured with -NPWT Application Charge NPWT & Debridement (nc ) -Aquacel AG 4x4 Treatment Response Procedure Tolerated Well Pain Scale: 0-10 Numeric Is Patient Pain Free? Yes WC - Visit Discharge Discharge Condition Stable Ambulatory Status Ambulatory,Cane Transportation Private Auto Medication Reconcilliation completed & provided to patient/care provider Clinical Summary of Care Provided Notes: snap vac iniated today per Melec[facility] Facility Type Home Health Orders Sent Yes Assessment/Plan Assessment/Plan (1) Skin ulcer of lower back with fat layer exposed: CODE(S): L98.422 - Non-pressure chronic ulcer of back with fat layer exposed (2) Postoperative infection: CODE(S): T81.40XA - Infection following a procedure, unspecified, initial encounter (3) Previous back surgery: CODE(S): Z98.890 - Other specified postprocedural states (4) History of incision and drainage: CODE(S): Z98.890 - Other specified postprocedural states PLAN: Plan Wound shows granulation tissue. No bone seen. No hardware seen. Nia wound is stable. Wound care - Start SNAP vac today. She had the SNAP vac on for 2 hours and phoned the wound center stating it wasn't working correctly and she needed to have it checked. She came in for a nurses visit and insisted on having it removed. Aquacel-Ag into the base of the ulcer top with fluffed gauze and cover with ABD daily. At the time of the dressing change, the wound is to be cleansed with antibacterial soap and rinsed with water. Two sets of wound cultures were obtained during surgery on 05/08/23. The first set was of the purulent drainage and was positive for Escherichia coli, Enterococcus faecalis and Bacteroides fragilis. The second set of operative cultures were positive for MRSA, Enterococcus faecalis, Anaerobic cocci, and Bacteroides fragilis. Infectious disease was consulted while she was admitted. She was sent home on Doxycycline and Augmentin. Wound culture obtained 09/29/23 which was positive for Staphylococcus aureus and Corynebacterium striatum. She completed the Augmentin. Encourage nutritional supplementation with protein to help the healing process. She has been drinking Jono. Follow up one week.
[2023-11-10 13:52] VITALS: BMI 37.9
--- NOTE | 2023-11-12 09:32 | WC ---
PHOTO LUMBAR 11/03/23
== END 2023-11-12 23:59 | disposition home or self-care (01) ==
LOC: WC 09:30
PROVIDERS: Referring Provider Orthopaedic Surgery; Visit Provider Nurse Practitioner Family
DX: T81.40XA Infection following a procedure, unspecified, initial encounter (principal); L98.422 Non-pressure chronic ulcer of back with fat layer exposed; Y83.8 Other surgical procedures as the cause of abnormal reaction of the patient, or of later complication, without mention of misadventure at the time of the procedure; Z86.14 Personal history of Methicillin resistant Staphylococcus aureus infection; Z79.899 Other long term (current) drug therapy; Z79.890 Hormone replacement therapy
CPT/HCPCS: 11042

== ENCOUNTER 2023-11-17 09:07 | Outpatient (RCR) | payer OTHER, SELFPAY ==
[2023-11-13 00:10] VITALS: BP 144/67; PULSE 91; RESP 16; TEMP 35.9; BMI 37.9
[2023-11-17 09:12] VITALS: BP 150/75; PULSE 78; RESP 18; TEMP 36.3; BMI 37.9
--- NOTE | 2023-11-17 09:49 | PCM.WC.PN ---
History of Present Illness Date of Service: 11/17/23 Chief Complaint: Lumbar wound after I&D History of Wound: Patient is a 63 year old female who underwent L4-5, L5-S1 posterior lumbar interbody fusion, decompression, posterior spinal fusion with instrumentation, use of allograft on 04/17/[address] Dominguez for lumbar spinal stenosis. She developed some redness and drainage a couple weeks after surgery. She was taken back to the OR on 05/08/23 for I&D and application of a wound VAC by Dr. Dominguez. Two sets of wound cultures were obtained during surgery. The first set was positive for Escherichia coli, Enterococcus faecalis and Bacteroides fragilis. The second set of operative cultures were positive for MRSA, Enterococcus faecalis, Anaerobic cocci, and Bacteroides fragilis. ID was consulted and treated with Vanc/Cefepime IV in the hospital, she was discharged on Doxycycline and Augmentin. Wound culture obtained 09/29/23 which was positive for Staphylococcus aureus and Corynebacterium striatum. She completed the Augmentin. She denies any complaints of fever, chills, nausea or vomiting. Her appetite is ok. Progress of Wound: Mid lower back ulcer is beefy pink. It is slightly smaller in size. Nia wound is clear. Her wound healing progress has been very slow. She was approved for the SNAP vac. She had it applied last week. When she was at home, it got caught in her pants and lost the seal. She was back in the wound center within 2 hours of it being applied stating she did not want to have it on. Returned to [facility] dressing changes. Objective Data Objective Data Vital Signs: Vital Signs Temp Pulse Resp BP 97.4 F L 78 18 150/75 H 11/17/23 09:12 11/17/23 09:12 11/17/23 09:12 11/17/23 09:12 Weight: 200 lb 14.792 oz Body Mass Index (BMI) 37.9 Charges/Coding Procedures Integumentary [id number]: [id number] Jonna subq tissue 20 sq cm/< Debridement Note Debridement Note Wound debrided: #1 Lumbo-sacral area Laterality: Not Applicable Wound Grade/Stage: Grade 3 Type of Debridement: Excisional debridement Anesthesia Used: 5% Lidocaine Gel Depth: Down to and including healthy tissue and in the subcutaneous layer Percentage of wound debrided: 100 Instrument Used: 5mm curette Tissue Removed: Subcutaneous tissue and slough. Severity: Fat Layer Exposed Amount of bleeding with debridement: Mild Bleeding Controlled with: Compression and gauze Patient tolerated procedure: Patient tolerated procedure well Post-Debridement Measurements and Additional Note: Post-Debridement Measurements/Treatment - Nurse 1 - General Ulcer Assessment Start: 11/17/23 09:12 Freq: Status: Active Protocol: RAJEEV Activity Type Activity Date Activity User E-sign Co-sign Detail Recorded Client Recorded Date Recorded By Document 11/17/23 09:12 DL [id number] 11/17/23 09:18 DL 11/17/23 09:12 WC - Today's Visit Information Type of service Follow-up Visit (Physician/EXERCISE SPECIALIST ) Arrival Mode Ambulatory,Cane Transfer Assistance None Patient Identification Verified (Name & Yes ) Patient Requires Transmission-Based No Precautions Height and Weight Body Mass Index (BMI) 37.9 BMI Classification Obese Vital Signs Temperature (97.8 F-99.1 F) 97.4 F L Temperature Source Temporal Pulse Rate (60-100) 78 Pulse Location Monitor Respiratory Rate (12-18) 18 Respiratory rate source Observation Blood Pressure (90/60-120/80) 150/75 H Blood Pressure Mean (mm Hg) 100 Source Monitor History Since Last Visit- (Skip if this is Patient's initial visit) Have you changed medications since your No last visit? Any new allergies or adverse reactions No Had a fall/change in ADL's that may No increase risk of falls Signs or symptoms of abuse and/or No neglect since last visit Have you been in the hospital since your No last visit? Has dressing in place as prescribed Yes Has compression in place as prescribed N/A Has offloadiing in place as prescribed Yes Experienced any changes in pain level or No management Pain Scale: 0-10 Numeric Is Patient Pain Free? Yes - Nurse 1 - General Ulcer Measurement Start: 11/17/23 09:12 Freq: Status: Active Protocol: Activity Type Activity Date Activity User E-sign Co-sign Detail Recorded Client Recorded Date Recorded By Document 11/17/23 09:12 DL [email or web address] 11/17/23 09:18 DL 11/17/23 09:12 Wound Center Nurse 1 #1 Sacral -Current Size (cm) - Length 3.9 -Current Size (cm) - Width 1.6 -Current Size (cm) - Depth 2 -Total Square Cm 6.24 -Photo Taken Yes -Exudate Amt Medium -Exudate Type Serosanguineous -Wound Margin Distinct, Outline Attached -Granulation Amt Large (67-100%) -Granulation Quality Pale,[place] -Necrosis Amt Small (1-33%) -Necrotic Tissue Type Adherent Slough -Structure Exposed N/A -Texture (Nia-wound Skin Appearance) Scarring -Moisture (Nia-wound Skin Appearance) No Abnormality -Color (Nia-wound Skin Appearance) No Abnormality -Temperature (Nia-wound Skin No Abnormality Appearance) (Pt Warm) -Ulcer Cleansing Soap and Water -Foul Odor after Cleansing No -Anesthetic Used 5% Lidocaine Gel WC - Nurse 2 - General Ulcer CM Notes Start: 11/17/23 09:12 Freq: Status: Active Protocol: Activity Type Activity Date Activity User E-sign Co-sign Detail Recorded Client Recorded Date Recorded By Document 11/17/23 09:29 JF 0000 11/17/23 09:31 JF 11/17/23 09:29 Wound Center Nurse 2 -Time 09:29 -Correct Patient Yes -Correct Side, Site, Position Yes -Correct Procedure Yes -Procedure Performed Yes -Type of Procedure Debridement -Clinical Debridement Subcutaneous -Tissue Removed Subcutaneous -Post Debridement (cm) - Length 4 -Post Debridement (cm) - Width 2 -Post Debridement (cm) - Depth 1.7 -Total Square (Post) (cm) 8 -Area of Debridement (cm) - Length 4 -Area of Debridement (cm) - Width 2 -Total Square (Area) (cm) 8 -Tunneling No -Undermining/Tunneling No -Circular Undermining No -Wound/Ulcer Outcome Not Healed -Ulcer Cleansing Rinsed/ Irrigated with Saline -Foul Odor after Cleansing No -Bioengineered Tissue No -Bleeding Controlled with Pressure -Treatment Response Procedure Tolerated Well -Offloading No -Debridement - Subq, 1st 20sq cm Yes Pain Scale: 0-10 Numeric Is Patient Pain Free? Yes DESTINEE - Nurse 3 - General Ulcer D/C NN Start: 11/17/23 09:12 Freq: Status: Active Protocol: Activity Type Activity Date Activity User E-sign Co-sign Detail Recorded Client Recorded Date Recorded By Document 11/17/23 09:43 DL [email or web address] 11/17/23 09:44 DL 11/17/23 09:43 Wound Care Center Nurse 3 #1 Sacral -Ulcer Cleansing Rinsed/ Irrigated with Saline -Foul Odor after Cleansing No -Primary Dressing Applied Hysept ($) -Primary Dressing Covered/Secured with Dry Gauze, Secured with Tape Treatment Response Procedure Tolerated Well Pain Scale: 0-10 Numeric Is Patient Pain Free? 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 No bone seen. No hardware seen. Nia wound is stable. Wound care - Change to Dakin's 0.25% moistened gauze topped with ABD daily. At the time of the dressing change, the wound is to be cleansed with antibacterial soap and rinsed with water. Two sets of wound cultures were obtained during surgery on 05/08/23. The first set was of the purulent drainage and was positive for Escherichia coli, Enterococcus faecalis and Bacteroides fragilis. The second set of operative cultures were positive for MRSA, Enterococcus faecalis, Anaerobic cocci, and Bacteroides fragilis. Infectious disease was consulted while she was admitted. She was sent home on Doxycycline and Augmentin. Wound culture obtained 09/29/23 which was positive for Staphylococcus aureus and Corynebacterium striatum. She completed the Augmentin. Encourage nutritional supplementation with protein to help the healing process. She has been drinking Jono. Follow up two weeks.
--- NOTE | 2023-11-18 09:20 | WC ---
PHOTO 11/17/23 LUMBAR
== END 2023-12-13 23:59 | disposition home or self-care (01) ==
LOC: WC 09:07
PROVIDERS: Referring Provider Orthopaedic Surgery; Visit Provider Nurse Practitioner Family
DX: T81.40XA Infection following a procedure, unspecified, initial encounter (principal); L98.422 Non-pressure chronic ulcer of back with fat layer exposed; Z98.890 Other specified postprocedural states; Z79.899 Other long term (current) drug therapy
CPT/HCPCS: 11042

== ENCOUNTER 2023-12-04 06:03 | Day surgery (SDC) | payer OTHER, SELFPAY ==
[2023-12-04] VITALS (9 sets, daily range): BP systolic 117–159; BP diastolic 52–82; PULSE 78–106; RESP 14–17; TEMP 36.1–36.6; O2SAT 92–100; BMI 37.0
[2023-12-04] MEDS: Lactated Ringers 1,000 ML 15 ML IV (06:30)
--- NOTE | 2023-12-04 07:16 | PCM.PRE.AN2 ---
ASA Classification* ASA Classification ASA Classification: 3 Assessment & Plan Anesthesia* Anesthesia Assessment Anesthesia Assessment: Discussed sedation and/or anesthesia options, risks, benefits, and alternatives with patient/parents/legal guardian/POA. Questions invited. The patient/parents/legal guardian/POA seems to understand and agrees to proceed with anesthesia plan. Reviewed the physical assessment, medical history, allergy history and patient home medications list prior to surgery/procedure/anesthetic and documented any changes. Performed airway and anesthesia risk assessments. Anesthesia Type Anesthesia Type: General (see written pre anesthesia record for full assessment) Anesthesia Focused Assessment* Temperature: 97.9 F Pulse Rate: 84 Blood Pressure: 159/73 Respiratory Rate: 17 Pulse Ox: 98 Airway Assessment Mouth opens: >3 cm Mallampati Score: II Focused Labs Anesthesia Preop lab: CBC WBC 4.8 K/mm3 (4.4-11.0) 04/02/23 08:06 RBC 4.48 M/mm3 (4.2-5.4) 04/02/23 08:06 Hgb 13.7 g/dL (12.0-15.0) 04/02/23 08:06 Hct 41.6 % (37-47) 04/02/23 08:06 Plt Count 243 K/mm3 (150-450) 04/02/23 08:06 CHEMISTRY Potassium 4.6 mmol/L (3.5-5.1) 05/08/23 12:19 Sodium 137 mmol/L (136-145) 05/08/23 12:19 BUN 18 mg/dL (7-18) 05/08/23 12:19 Creatinine 0.76 mg/dL (0.55-1.02) 05/08/23 12:19 Glucose 116 mg/dL (74-106) H 05/08/23 12:19 COAG PT 13.0 SECONDS (11.7-14.9) 04/02/23 08:06 Pre-Assessment Diagnosis/Proposed Procedure Planned Operative Procedure(s): LUMBAR I&D WOUND EXPLORATION PRIMARY CLOSURE Anesthesia History 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 When Was Last Pacemaker Check QUESTION #4 FULL TEXT: You/Your Family Experience fever (hyperthermia) with Anesthesia Last Oral Intake Last Oral intake: Last Oral Intake NPO since 05:00 12/04/23 06:31 Meds taken in AM with sips of Yes 12/04/23 06:31 water? 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 Female Yes 12/02/23 14:26 HX of Motion Sickness Yes 12/02/23 14:26 HX of N/V After Surgery Yes 12/02/23 14:26 Non-Smoker Yes 12/02/23 14:26 Duration of Surgery greater Yes 12/02/23 14:26 than 60 minutes Number of Risk Factors 5 12/02/23 14:26 PONV Score Severe Risk 12/02/23 14:26 Height & Weight Height & Weight: Anesthesia: Height & Weight Height 5 ft 1 in 12/04/23 06:31 Weight: 89 kg 12/04/23 06:31 Body Mass Index (BMI) 37.0 12/04/23 06:31 Respiratory Assessment Respiratory Assessment - meat and poultry inspector: Respiratory Tract Infection Hx - meat and poultry inspector Hx Respiratory Tract Infection No 12/02/23 14:26 STOP Sleep Apnea STOP Sleep Apnea - meat and poultry inspector: STOP Sleep Apnea - meat and poultry inspector Hx Hypertension Yes: CONTROLLED WITH MED 12/02/23 14:26 Hx Sleep Apnea No 12/02/23 14:26 CPAP BIPAP Do you snore loudly (louder No 12/02/23 14:26 than talking or can be heard Do you often feel tired/ No 12/02/23 14:26 fatigued/ sleepy during daytime? Has anyone observed you stop No 12/02/23 14:26 breathing during sleep? STOP Results Negative 12/02/23 14:26 QUESTION #5 FULL TEXT : Do you snore loudly (louder than talking or can be heard through closed doors)? 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 Specify any problems Hx of Preganancy in last 3 No 12/02/23 14:26 Months Nurse Filling Out Transfusion DSCHRIBER 12/02/23 14:26 & Questions: Date: 12/02/23 12/02/23 14:26 Time: 14:27 12/02/23 14:26 Patient unable to answer at this time (ie. confused, unrespo /Reproduction History /Reproductive History - meat and poultry inspector: /Reproductive Hx- meat and poultry inspector Hx Now Gestational Age (in weeks): EDC: Hx Hx Para Hx Section SAB No 12/02/23 14:26 Active Medications Active Medications: Current Medications Generic Name Dose Route Start Last Admin Trade Name Freq PRN Reason Stop Dose Admin Cefazolin Sodium 2 gm/ Sodium 110 mls @ 150 mls/hr 12/04/23 07:30 Chloride IV 12/04/23 08:13 PREOP ONE Lactated Ringer's 1,000 mls @ 15 mls/hr 12/04/23 06:15 12/04/23 06:30 IV 15 mls/hr .Q48H CAESAR Administration PFSH Medical History Ambulates with cane Wears glasses Post-menopausal Back pain Injury of back Shortness of breath on exertion Non-smoker Leg cramps History of pain when walking History of edema Hypertension Hx of corrected cleft lip and palate Home Medications ?Medication ?Instructions ?Recorded ?Last Taken ?Type lisinopril 20 mg tablet 10 mg PO DAILY HTN 04/28/23 12/04/23 History Allergy/AdvReac Type Severity Reaction Status Date / Time No Known Allergies Allergy Verified 12/04/23 06:30 Family History Father Heart disease Surgical History History of incision and drainage Previous back surgery History of Hx of total hip arthroplasty Social History household members: spouse number of children: 2 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
--- NOTE | 2023-12-04 07:19 | PN.ORTHO_ITS ---
Subjective Subjective Seen and examined postop. Resting comfortably. Pain controlled. No complaints Objective Data Objective Data Vital Signs: Vital Signs Temp Pulse Resp BP Pulse Ox O2 Del Method 97.9 F 84 17 159/73 H 98 Room Air 12/04/23 07:16 12/04/23 07:16 12/04/23 07:16 12/04/23 07:16 12/04/23 07:16 12/04/23 06:31 Oxygen Delivery Method Room Air Weight: 196 lb 3.382 oz Body Mass Index (BMI) 37.0 Physical Exam Const alert, oriented x3 and no apparent distress General Appearance: cooperative, comfortable and well kempt HEENT normocephalic and head/scalp atraumatic Eyes EOMs intact bilaterally and conjunctivae normal Neck full ROM General: normal visual inspection Chest inspection of chest normal and palpation of chest normal Resp normal respiratory effort and normal air movement Cardio regular rate, regular rhythm and peripheral pulses 2+ throughout GI soft to palpation, non-tender and non-distended Back/Spine Back/Spine Narrative: Dressing clean dry and intact Cervical Spine: cervical ROM normal Thoracic Spine / Upper Back: normal to inspection Lumbar Spine / Lower Back: normal to inspection Extremity normal to inspection, full ROM, normal capillary refill, no clubbing, cyanosis or edema and no calf tenderness Skin no rashes or lesions noted General Skin Exam: no breakdown Neuro oriented x3, CN's II-XII intact bilaterally, moves all extremities, no focal motor deficits, no sensory deficits noted and deep tendon reflexes 2+ bilate rally Motor Exam: strength 5/5 throughout and muscle tone normal throughout Assessment & Plan Assessment/Plan (1) Lumbar stenosis: (2) Delayed surgical wound healing: PLAN: Okay to discharge See discharge instructions Follow-up with Dr. Dominguez in 3 weeks
--- NOTE | 2023-12-04 07:19 | PCM.OPRPT ---
Problems Associated Problem List Diagnoses (1) Lumbar stenosis: (2) Delayed surgical wound healing: Report of Operation Date of Procedure: 12/04/23 Pre-Operative Diagnosis: 1. Delayed wound healing, lumbar Post-Operative Diagnosis: 1. Delayed wound healing, lumbar Surgery/Procedure Performed:: 1. Lumbar irrigation, debridement, wound exploration 2. Primary closure Description of Surgical Findings:: PREOPERATIVE DIAGNOSES: 1. Delayed wound healing, lumbar POSTOPERATIVE DIAGNOSES: 1. Delayed wound healing, lumbar PROCEDURE PERFORMED: 1. Lumbar irrigation, debridement, wound exploration 2. Primary closure STATEMENT OF MEDICAL NECESSITY: The patient is a 63-year-old female with delayed wound healing status post lumbar fusion. Image studies confirm above diagnosis. She has failed conservative treatment to include and has opted for operative intervention, understanding the risks to include, but not limited to infection, bleeding, damage to nerves, arteries, and veins, possibility of spinal fluid leak, continued pain, need for further surgery, deep vein thrombosis, pulmonary embolism, heart attack, risk of stroke, or . DESCRIPTION OF PROCEDURE: The patient was seen and examined preoperatively. The patient was properly identified. Preoperative antibiotics were administered. The patient was transferred to the [place] operating table in the prone position. All bony prominences were padded accordingly. The lumbar spine was prepped and draped in standard surgical fashion. Francesca huggers were not turned on until drapes were placed and sealed with Ioban. A Midline incision was made and taken down to the lumbodorsal fascia. No significant necrotic tissue or fluid was encountered. Cultures were taken. The incision was then irrigated. The fascia was found to be intact. The fascia was then divided. No significant necrotic tissue or fluid was encountered. A second set of cultures were taken. The wound was thoroughly explored including the hardware and no necrotic tissue or pockets of fluid were encountered. The incision was then thoroughly irrigated with 3 cc of normal saline through a pulse supervisor underwriting clerks. All bleeding was well-controlled. Fascia was closed with #1 Vicryl, subcutaneous with 2-0 Vicryl, and skin with 2-0 nylon. Sterile dressing was applied with Adaptic, 4 x 4, ABD, and tape. Sponge, instrument, and needle counts were correct at the end of the case. The patient was extubated, taken to PACU without incident. Surgeon: Gurjit Dominguez Type of Anesthesia: General Specimen's removed: Cultures x 2 Estimated Blood Loss (mL): 20 cc Fluids Replaced: 700 cc Complications None Admit VTE Documentation VTE Present on Admission: No
[2023-12-04] MEDS: Cefazolin 2 GM in 0.9% Normal Saline (100mL Bag) 100 ML IV (08:05)
[2023-12-04] MEDS: Bupivacaine 0.25% 30 ML Vial (08:40)
--- NOTE | 2023-12-04 09:03 | PCM.POST.ANE ---
Anesthesia: Postop Eval I Current Vital Signs Temperature: 97 F Pulse Rate: 92 Blood Pressure: 156/82 Respiratory Rate: 16 Pulse Ox: 99 Oxygen Delivery Method: Simple Mask Oxygen Flow Rate (L/min): 6 Assessment Airway patent: Yes Spontaneous unlabored respirations: Yes Mental status: Awake and Calm nausea: No Vomiting: No Anesthesia Complication: No Fluid Hydration Crystalloid volume administer (ml): 700 Total IV fluid infused: 700 Progress Note Anesthesia document: Postop Eval 1 completed: Yes
--- NOTE | 2023-12-04 09:29 | PCM.POSTANE2 ---
Anesthesia Postop Eval I Sum Postop Eval Completion status Anesthesia document: Postop Eval 1 completed: Yes Anesthesia Postop Eval I Summary Anesthesia Postop Eval I Summary: Anesthesia Postop Eval I: Assessment Summary Airway patent Yes 12/04/23 09:04 [email or web address] Spontaneous unlabored Yes 12/04/23 09:04 HANNAH respirations Mental status Awake,Calm 12/04/23 09:04 [email or web address] nausea No 12/04/23 09:04 [email or web address] Vomiting No 12/04/23 09:04 HANNAH Anesthesia Postop Eval I: Fluid Summary Crystalloid volume administer 700 12/04/23 09:04 HANNAH (ml) Colloids volume administered ( ml) Blood Product volume administered (ml) Total IV fluid infused 700 12/04/23 09:04 HANNAH Anesthesia Postop Eval I: Summary Notes Anesthesia Complication No 12/04/23 09:04 HANNAH Anesthesia Complication Comment: Post-operative progress note Anesthesia: Postop Eval II Evaluation Mental status: Awake Pain Level: 0 nausea: No Vomiting: No
[2023-12-04] MEDS: Acetaminophen 325 MG Tablet PO (10:19)
[2023-12-04] MEDS: oxyCODONE 5 MG Tablet PO (10:19)
== END 2023-12-04 11:32 | disposition home or self-care (01) ==
LOC: SDC 06:09 → AC 06:09
PROVIDERS: PCP Family Medicine; Referring Provider Orthopaedic Surgery; Visit Provider Orthopaedic Surgery
PROC: (CPT 20102; principal; 2023-12-04 07:20)
DX: M48.061 Spinal stenosis, lumbar region without neurogenic claudication (principal); T81.31XD Disruption of external operation (surgical) wound, not elsewhere classified, subsequent encounter; L76.34 Postprocedural seroma of skin and subcutaneous tissue following other procedure; Z98.1 Arthrodesis status; I10 Essential (primary) hypertension; M51.36 Other intervertebral disc degeneration, lumbar region; M54.16 Radiculopathy, lumbar region; M41.86 Other forms of scoliosis, lumbar region; E66.9 Obesity, unspecified; Z68.38 Body mass index [BMI] 38.0-38.9, adult
CPT/HCPCS: 20102; 00300; 87070; 87075; 87077; 87205; J7120; J2405